=== PATIENT | female | born 1970 ===

== ENCOUNTER 2016-11-18 10:15 | Day surgery (SDC) | payer SELFPAY ==
[2016-10-28 11:47] VITALS: BMI 35.9
[2016-11-18 11:03] VITALS: RESP 18; O2SAT 97
[2016-11-18] MEDS ORDERED: Bupivacaine HCl 0.25% PF (10 ml) Inj ONE (12:31)
[2016-11-18] MEDS ORDERED: Lidocaine 1% Inj (20ml) ONE (12:31)
[2016-11-18] MEDS ORDERED: MethylPREDNISolone Depo 40 mg/ml Inj ONE (12:31)
[2016-11-18] MEDS ORDERED: Lactated Ringer's 1,000 ML IV ONE (12:45)
[2016-11-18] MEDS ORDERED: Propofol 10 mg/ml Inj (20 ML) ONE (12:46)
[2016-11-18] MEDS ORDERED: Iohexol 300 10 ML ONE (12:48)
[2016-11-18] MEDS ORDERED: Lidocaine 1% Inj (20ml) IJ ONE (12:53)
[2016-11-18] MEDS ORDERED: MethylPREDNISolone Depo 40 mg/ml Inj IM ONE ×2 (12:53)
[2016-11-18] MEDS ORDERED: Oxycodone/Acetaminophen 5/325 mg Tab PO PRN (13:08)
[2016-11-18] MEDS: HYDROmorphone 0.5 mg/0.5 ml ISec IVP PRN ×2 (13:08→13:30)
[2016-11-18 15:20] VITALS: BP 135/90; PULSE 95; TEMP 98.7
[2016-11-18] MEDS ORDERED: Oxycodone/Acetaminophen 5/325 mg Tab PO ONE (15:20)
--- NOTE | 2016-11-19 08:48 | OP ---
PROCEDURE DATE: 11/18/2016 PREOPERATIVE DIAGNOSIS: Right trochanteric bursitis. POSTOPERATIVE DIAGNOSIS: Right trochanteric bursitis. PROCEDURE: Right trochanteric bursa injection under fluoroscopic guidance. COMPLICATIONS: None. EXPECTED BLOOD LOSS: None. ANESTHESIOLOGIST: Dr. Hanson. PROCEDURE IN DETAIL: After informed consent was obtained, the patient was brought to the OR and plac ed on the table in the supine position. All pressure points were padded, and sedation was administer ed by anesthesia. The right hip and right groin were prepped with iodine x 3 [address] drap[address] in normal [address] erile fashion. Using x-ray in the AP view, the right greater trochanteric bursa was identified. A 2 2 gauge 3-1/2 inch spinal needle was placed to bony contact at the right greater trochanter bursa. A fter negative aspiration for heme or CSF, 1 mL of Omnipaque 300 contrast dye was used to delineate th e bursa. After negative aspiration for heme or CSF, 4 mL of 1% preservative-free lidocaine and Depo- Medrol was easily instilled. The patient had no paresthesias during the procedure. The patient was brought to stage II recovery room with bilateral lower extremity motor and sensory intact. Bandar Gaston MD cc: [id number] TT: 11/18/2016 15:37:32 sn
--- NOTE | 2016-11-21 10:42 | RAD ---
PROCEDURE: Fluoroscopy up to 1 hour HISTORY: EPIDURAL RT HIP COMPARISON: TECHNIQUE: Fluoroscopy up to 1 hour. Three images were submitted FINDINGS: The study shows needle placement in contrast injection adjacent to the greater trochanter IMPRESSION: As above
== END 2016-11-18 15:53 | disposition home or self-care (01) ==
LOC: H.OPSURG 10:15
PROVIDERS: ATTEND Anesthesiology Pain Medicine
DX: M70.61 Trochanteric bursitis, right hip (principal)

== ENCOUNTER 2016-11-22 22:05 | Emergency (ER) | payer SELFPAY ==
[2016-11-22 22:05] VITALS: BMI 35.9
[2016-11-22 23:03] LABS: BASO # 0.1 K/uL (0.0-0.2); EOS # 0.2 K/uL (0.0-0.7); EOS % 1.4 % (0.0-4.0); HEMATOCRIT 38.7 % (34.0-47.0); LYMPH # 3.1 K/uL (1.0-4.3); LYMPH % 25.4 % (20.0-40.0); MEAN CELL VOLUME 90.2 fl (81.0-99.0); MEAN CORPUSCULAR HEMOGLOBIN 29.5 pg (27.0-31.0); MEAN CORPUSCULAR HGB CONC 32.8 g/dL (33.0-37.0); MEAN PLATELET VOLUME 8.4 fl (7.2-11.7); MONO # 0.9 K/uL (0.0-0.8); MONO % 7.4 % (0.0-10.0); NEUT # 7.9 K/uL (1.8-7.0); NEUT % 64.8 % (50.0-75.0); RED CELL DISTRIBUTION WIDTH 14.6 % (11.5-14.5); WHITE BLOOD COUNT 12.2 K/uL (4.8-10.8)
[2016-11-22 23:12] LABS: BLOOD UREA NITROGEN 20 mg/dl (7-17); CALCIUM 9.1 mg/dL (8.4-10.2); CARBON DIOXIDE 25 mmol/L (22-30); CHLORIDE 104 mmol/L (98-107); GFR AFRICAN-AMERICAN > 60; GLUCOSE,RANDOM 110 mg/dL (65-105); POTASSIUM 4.2 MMOL/L (3.6-5.0); SODIUM 142 mmol/l (132-148)
--- NOTE | 2016-11-22 23:13 | ED PDOC ---
HPI: Chest Pain Time Seen by Provider: 11/22/16 22:20 Chief Complaint (Nursing): Chest Pain Chief Complaint (Provider): Chest Pain History Per: Patient History/Exam Limitations: no limitations Onset/Duration Of Symptoms: Days (x2), Intermittent Episodes Current Symptoms Are (Timing): Still Present Severity: Moderate Associated Symptoms: denies: Dyspnea, Other ((-) fever, (-) cough, (-) leg swelling) Exacerbating Factors: Deep Breathing Additional Complaint(s): Xenia Melchoreta is a 46 year old female, with a past medical history of depression and anxiety, who presents to the emergency department for the evaluation of chest pain, that the patient has been experiencing for the past two days. Pain is left-sided, intermittently occurs, worsens with breathing, and does not radiate elsewhere. Denies dyspnea, a fever, cough, or leg swelling. Of note, patient states she has felt this pain in the past when feeling depressed/anxious. Denies suicidal ideation or homicidal ideation. Patient is currently on medication for her depression. PMD: Dr. Nitesh De La Garza Past Medical History Reviewed: Historical Data, Nursing Documentation, Vital Signs Vital Signs: Last Vital Signs Temp 98.2 F 11/23/16 03:26 Pulse 91 H 11/23/16 03:26 Resp 16 11/23/16 03:26 BP 153/90 H 11/23/16 03:26 Pulse Ox 99 11/23/16 03:26 - Medical History PMH: Anxiety, Arthritis, Back Problems, Bipolar Disorder, Depression, Fibromyalgia, Migraine, Post Traumatic Stress Disorder, Rheumatoid Arthritis, Seizures Denies: HIV, Pneumothorax, Chronic Kidney Disease, Sexually Transmitted Disease - Surgical History Surgical History: Appendectomy, Cholecystectomy, Tonsillectomy, Other surgeries: Hysterectomy - Family History Family History: States: Unknown Family Hx - Social History Current smoker - smoking cessation education provided: No Ex-Smoker (has not smoked in the last 12 months): No Alcohol: None Drugs: Denies - Immunization History Hx Tetanus Toxoid Vaccination: No Hx Influenza Vaccination: No Hx Pneumococcal Vaccination: No - Home Medications Home Medications: Ambulatory Orders Medication Instructions Recorded Quetiapine Fumarate [Seroquel] 300 mg PO HS 06/13/16 lamoTRIgine [LaMICtal] 100 mg PO DAILY 06/13/16 Meclizine [Antivert] 25 mg PO Q6 PRN #30 tab 09/19/16 Prazosin [Prazosin HCl] 2 mg PO HS 10/02/16 Divalproex [Depakote ER] 500 mg PO DAILY 10/28/16 LORazepam [Ativan] 1 mg PO DAILY PRN 10/28/16 DULoxetine [Cymbalta] 20 mg PO DAILY 11/18/16 - Allergies Allergies/Adverse Reactions: Allergies Allergy/AdvReac Type Severity Reaction Status Date / Time Penicillins Allergy Severe SWELLING Verified 10/02/16 12:34 ANDERSON Risk Score for UA/NSTEMI - ANDERSON Risk Score Age > 64: NO 3 or more CAD Risk Factors: NO Known CAD (Stenosis greater than 50%): NO Aspirin use in past 7 days: NO Severe Angina: NO EKG ST changes greater than 0.5mm: NO Positive Cardiac Marker: NO ANDERSON Score: 0 Risk %: 5% Curb-65 Severity Score - CURB-65 Severity Score Confusion: No Bun >19mg/dl (>7mmol/L): No Respiratory Rate greater than/equal to 30: No Systolic BP <90 or Diastolic BP less than/equal 60mmHg: No Age >64: No Curb-65 Score: 0 Percentage 30-day mortality: 0.6% Wells Criteria for PE - Wells Criteria for Pulmonary Embolism Clinical Signs and Symptoms of DVT: No P.E is #1 Diagnosis, or Equally Likely: No Heart Rate >100: No Immobilization at least 3 days;Surgery previous 4 weeks: No Previous, objectively diagnosed PE or DVT: No Hemoptysis: No Malignancy w/treatment within 6 months, or palliative: No Total Score: 0 Review of Systems ROS Statement: Except As Marked, All Systems Reviewed And Found Negative Constitutional: Negative for: Fever Cardiovascular: Positive for: Chest Pain. Negative for: Edema ((-) leg swelling ) Respiratory: Positive for: Pleuritic Pain. Negative for: Cough, Shortness of Breath, SOB with Exertion Neurological: Negative for: Weakness, Numbness Psych: Positive for: Anxiety, Depression. Negative for: Suicidal ideation, Other ((-) homicidal ideation) Physical Exam - Reviewed Nursing Documentation Reviewed: Yes Vital Signs Reviewed: Yes - Physical Exam Appears: Positive for: Non-toxic, No Acute Distress. Negative for: Uncomfortable Head Exam: Positive for: ATRAUMATIC, NORMOCEPHALIC Skin: Positive for: Normal Color, Warm, Dry Eye Exam: Positive for: Normal appearance, EOMI Neck: Positive for: Normal, Painless ROM Cardiovascular/Chest: Positive for: Regular Rate, Rhythm. Negative for: Murmur Respiratory: Positive for: Normal Breath Sounds. Negative for: Respiratory Distress Gastrointestinal/Abdominal: Positive for: Normal Exam, Soft. Negative for: Tenderness Back: Positive for: Normal Inspection. Negative for: L CVA Tenderness, R CVA Tenderness Extremity: Positive for: Normal ROM. Negative for: Tenderness, Swelling Neurologic/Psych: Positive for: Alert, Oriented - Laboratory Results Result Diagrams: 11/22/16 22:58 11/22/16 22:58 - ECG ECG: Positive for: Interpreted By Me, Viewed By Me, Discussed With Finger Cobbler ECG Rhythm: Positive for: Normal QRS, Normal ST Segment, Sinus Rhythm Rate: 101 O2 Sat by Pulse Oximetry: 98 (RA) Pulse Ox Interpretation: Normal - Radiology X-Ray: Interpreted by Me, Viewed By Me X-Ray Interpretation: No Acute Disease Medical Decision Making Medical Decision Makin:20 Initial Impression: chest pain Differential Diagnoses include, but are not limited to ACS, Chest Wall Pain, ruling out a Pulmonary Embolism. Initial Plan: * CXR * EKG * CBC * BMP * Troponin I * D Dimer * Toradol 30mg IVP * Crisis Evaluation * Reevaluation EKG came back with a rate of 101. Normal Sinus Rhythm, Normal QRS, Normal ST Segment. Scribe Attestation: Documented by Efrain Jiang, acting as a scribe for Ly Thomas MD. Provider Scribe Attestation: All medical record entries made by the Scribe were at my direction and personally dictated by me. I have reviewed the chart and agree that the record accurately reflects my personal performance of the history, physical exam, medical decision making, and the department course for this patient. I have also personally directed, reviewed, and agree with the discharge instructions and disposition. Disposition - Clinical Impression Clinical Impression: Chest pain, Depression - Patient ED Disposition Is Patient to be Admitted: No Doctor Will See Patient In The: Office Counseled Patient/Family Regarding: Studies Performed, Diagnosis, Need For Followup - Disposition Referrals: Anya Leung MD [Primary Care Provider] - Disposition: Routine/Home Disposition Time: 03:11 Condition: GOOD Additional Instructions: Follow up with your PCP in 2-3 days. Instructions: Chest Pain (ED), Depression (ED)
[2016-11-23] MEDS ORDERED: Oxycodone/Acetaminophen 5/325 mg Tab PO STA (01:59)
[2016-11-23] MEDS ORDERED: Oxycodone/Acetaminophen 5/325 mg Tab ONE (02:17)
[2016-11-23 03:27] VITALS: BP 153/90; RESP 16; TEMP 98.2
[2016-11-23 05:41] VITALS: PULSE 101; O2SAT 98
--- NOTE | 2016-11-23 11:32 | RAD ---
PROCEDURE: CHEST RADIOGRAPH, 1 VIEW HISTORY: chest pain COMPARISON: 11/02/2009 FINDINGS: LUNGS: Clear. PLEURA: No pneumothorax or pleural fluid seen. CARDIOVASCULAR: Normal. OSSEOUS STRUCTURES: No significant abnormalities. VISUALIZED UPPER ABDOMEN: Normal. OTHER FINDINGS: None. IMPRESSION: No active disease.
--- NOTE | 2016-11-23 15:03 | CARD ---
APPROVED REPORT EKG Measurement Heart [id number] <Conclusion> Sinus tachycardia Possible Left atrial enlargement Borderline ECG
== END 2016-11-23 03:33 | disposition home or self-care (01) ==
LOC: H.ER 22:05
DX: R07.9 Chest pain, unspecified (principal); F32.9 Major depressive disorder, single episode, unspecified; Z87.891 Personal history of nicotine dependence

== ENCOUNTER 2017-01-10 11:41 | Inpatient (IN) | payer OTHER ==
[2017-01-10 11:45] VITALS: BMI 35.6
[2017-01-10] MEDS ORDERED: Sodium Chloride 0.9% 1,000 ML IV STA (12:21)
[2017-01-10] MEDS ORDERED: Albuterol-Ipratrop 3 mg / 0.5 (3 ml) UD INH STA ×2 (12:22→16:20)
[2017-01-10] MEDS ORDERED: Albuterol-Ipratrop 3 mg / 0.5 (3 ml) UD ONE ×2 (12:27→16:25)
--- NOTE | 2017-01-10 12:57 | RAD ---
HISTORY: cough, wheezing COMPARISON: Comparison is made to 11/22/2016 TECHNIQUE: Chest PA and lateral FINDINGS: LUNGS: No active pulmonary disease. PLEURA: No significant pleural effusion identified. No pneumothorax apparent. CARDIOVASCULAR: Normal. OSSEOUS STRUCTURES: No significant abnormalities. VISUALIZED UPPER ABDOMEN: Normal. OTHER FINDINGS: None. IMPRESSION: No active disease.
[2017-01-10 13:30] LABS: BASO # 0.1 K/uL (0.0-0.2); BASO % 0.5 % (0.0-2.0); EOS # 0.1 K/uL (0.0-0.7); EOS % 0.6 % (0.0-4.0); HEMATOCRIT 38.7 % (34.0-47.0); LYMPH # 5.1 K/uL (1.0-4.3); LYMPH % 31.7 % (20.0-40.0); MEAN CORPUSCULAR HEMOGLOBIN 29.7 pg (27.0-31.0); MEAN CORPUSCULAR HGB CONC 32.7 g/dL (33.0-37.0); MEAN PLATELET VOLUME 8.1 fl (7.2-11.7); MONO # 1.2 K/uL (0.0-0.8); MONO % 7.5 % (0.0-10.0); NEUT # 9.6 K/uL (1.8-7.0); NEUT % 59.7 % (50.0-75.0); NRBC % 0.1 % (0.0-0.0); RED CELL DISTRIBUTION WIDTH 15.1 % (11.5-14.5); WHITE BLOOD COUNT 16.1 K/uL (4.8-10.8)
[2017-01-10 13:52] LABS: ALB/GLOB RATIO 1.5 (1.0-2.1); ALKALINE PHOSPHATASE 93 U/L (38-126); ALT/SGPT 33 U/L (9-52); AST/SGOT 24 U/L (14-36); BILIRUBIN,TOTAL 0.2 mg/dl (0.2-1.3); BLOOD UREA NITROGEN 21 mg/dl (7-17); CARBON DIOXIDE 23 mmol/L (22-30); CHLORIDE 106 mmol/L (98-107); GFR AFRICAN-AMERICAN > 60; GLUCOSE,RANDOM 86 mg/dL (65-105); POTASSIUM 3.7 MMOL/L (3.6-5.0); SODIUM 139 mmol/l (132-148); TOTAL PROTEIN 6.7 G/DL (6.3-8.2)
[2017-01-10 15:37] LABS: RBC URINE 3 /hpf (0-3); URINE BACTERIA RARE (<OCC); URINE BILIRUBIN NEGATIVE (NEGATIVE); URINE BLOOD NEGATIVE (NEGATIVE); URINE COLOR AMBER (YELLOW); URINE GLUCOSE (UA) NEG (Normal); URINE KETONE NEGATIVE (NEGATIVE); URINE LEUKOCYTE ESTERASE NEG Leu/uL (Negative); URINE PROTEIN 100 mg/dL (NEGATIVE); URINE UROBILINOGEN 0.2-1.0 mg/dL (0.2-1.0); WBC URINE 3 /hpf (0-5)
--- NOTE | 2017-01-10 16:13 | ED PDOC ---
HPI: CCC, URI, Sore Throat Time Seen by Provider: 01/10/17 12:03 Chief Complaint (Nursing): Cough, Cold, Congestion Chief Complaint (Provider): Cough, wheezing - Sent by clinic for CXR History Per: Patient History/Exam Limitations: no limitations Have you had recent travel within the past 21 days to any of the following countries: [place], [place], [place] or [place]?: No Onset/Duration Of Symptoms: Days Current Symptoms Are (Timing): Still Present Location Of Pain: Diffuse Myalgias Sick Contacts (Context): None Associated Symptoms: Cough, Myalgias. denies: Fever, Chills, Sore Throat, Sputum Ear Symptoms: Bilateral: None Additional Complaint(s): Pt states she has been taking azithromycin but is not getting better. Pt states she is continuing to wheeze although she is taking azithromycin and prednisone. Past Medical History Reviewed: Historical Data, Nursing Documentation, Vital Signs Vital Signs: Last Vital Signs Temp 97.9 F 01/10/17 15:28 Pulse 77 01/10/17 15:28 Resp 18 01/10/17 15:28 BP 133/84 01/10/17 15:28 Pulse Ox 99 01/10/17 17:32 - Medical History PMH: Anxiety, Arthritis, Back Problems, Bipolar Disorder, Bronchitis, Depression , Fibromyalgia, HTN, Migraine, Post Traumatic Stress Disorder, Rheumatoid Arthritis, Seizures Denies: HIV, Pneumothorax, Chronic Kidney Disease, Sexually Transmitted Disease - Surgical History Surgical History: Appendectomy, Cholecystectomy, Tonsillectomy, - Family History Family History: States: Unknown Family Hx - Living Arrangements Living Arrangements: With Family - Social History Current smoker - smoking cessation education provided: No Alcohol: None Drugs: Denies - Immunization History Hx Tetanus Toxoid Vaccination: No Hx Influenza Vaccination: No Hx Pneumococcal Vaccination: No - Home Medications Home Medications: Ambulatory Orders Medication Instructions Recorded Quetiapine Fumarate [Seroquel] 300 mg PO HS 06/13/16 lamoTRIgine [LaMICtal] 100 mg PO DAILY 06/13/16 Meclizine [Antivert] 25 mg PO Q6 PRN #30 tab 09/19/16 Prazosin [Prazosin HCl] 2 mg PO HS 10/02/16 Divalproex [Depakote ER] 500 mg PO DAILY 10/28/16 LORazepam [Ativan] 1 mg PO DAILY PRN 10/28/16 DULoxetine [Cymbalta] 20 mg PO DAILY 11/18/16 Albuterol 0.083% [Albuterol 3 ml IH Q6 #50 dose 01/07/17 Sulfate 3 Ml] Albuterol HFA [Ventolin HFA 90 1 puff IH Q6 #1 inhaler 01/07/17 mcg/actuation (8 g)] Azithromycin [Zithromax] 250 mg PO DAILY #4 tab 01/07/17 predniSONE [predniSONE Tab] 40 mg PO DAILY #8 tab 01/07/17 - Allergies Allergies/Adverse Reactions: Allergies Allergy/AdvReac Type Severity Reaction Status Date / Time Penicillins Allergy Severe SWELLING Verified 01/10/17 11:56 Review of Systems ROS Statement: Except As Marked, All Systems Reviewed And Found Negative Respiratory: Positive for: Cough, Shortness of Breath Physical Exam - Reviewed Nursing Documentation Reviewed: Yes Vital Signs Reviewed: Yes - Physical Exam Appears: Positive for: Well, Non-toxic, No Acute Distress Head Exam: Positive for: ATRAUMATIC, NORMAL INSPECTION, NORMOCEPHALIC Skin: Positive for: Normal Color, Warm, DRY Eye Exam: Positive for: Normal appearance ENT: Positive for: Normal ENT Inspection Neck: Positive for: Normal, Painless ROM Cardiovascular/Chest: Positive for: Regular Rate, Rhythm Respiratory: Positive for: Wheezing (Diffuse wheezing ). Negative for: Accessory Muscle Use, Respiratory Distress Back: Positive for: Normal Inspection Extremity: Positive for: Normal ROM Neurologic/Psych: Positive for: Alert, Oriented - Laboratory Results Result Diagrams: 01/10/17 13:24 01/10/17 13:24 - ECG O2 Sat by Pulse Oximetry: 99 Pulse Ox Interpretation: Normal Medical Decision Making Medical Decision Making: PT continues wheezing on re-evaluation and states she does not feel she is breathing better. Disposition - Clinical Impression Clinical Impression: Dyspnea - Patient ED Disposition Is Patient to be Admitted: Yes - Disposition Disposition: Routine/Home Disposition Time: 17:50 Condition: GOOD
[2017-01-10 17:26] LABS: MAGNESIUM 2.1 MG/DL (1.6-2.3)
--- NOTE | 2017-01-10 20:19 | CP.PCM.HP ---
History of Present Illness - History of Present Illness History of Present Illness: Pt is a 46 y/o female with pmhx of chronic migraine without aura, impaired glucose tolerance, fibromyalgia, cervical radiculopathy, cervical cancer, osteopenia and psychiatric history of Bipolar disorder who was sent to the [facility] ED today by her PCP's office for chest xray to rule out pneumonia, as pt reported couhging and feeling short of breath. pt also reports going to the ED 5 days prior for evaluation and was discharged with prednisone and azithromycin , which she has been taking but her symptoms has not improved. reports associated generalized tiredness and weakness, denies fever, chills, nausea, vomiting, chest pain or diarrhea. Present on Admission - Present on Admission Any Indicators Present on Admission: No Review of Systems - Review of Systems All systems: reviewed and no additional remarkable complaints except Review of Systems: per HPI Past Patient History - Infectious Disease Hx of Infectious Diseases: None - Past Medical History & Family History Past Medical History?: Yes - Past Social History Alcohol: None Drugs: Denies - CARDIAC Hx Hypertension: Yes - PULMONARY Hx Bronchitis: Yes - NEUROLOGICAL Hx Migraine: Yes Hx Seizures: Yes - HEENT Hx HEENT Problems: No - RENAL Hx Chronic Kidney Disease: No - ENDOCRINE/METABOLIC Hx Endocrine Disorders: No - HEMATOLOGICAL/ONCOLOGICAL Hx Human Immunodeficiency Virus (HIV): No - INTEGUMENTARY Hx Dermatological Problems: No - MUSCULOSKELETAL/RHEUMATOLOGICAL Hx Arthritis: Yes Hx Rheumatoid Arthritis: Yes - GASTROINTESTINAL Hx Gastrointestinal Disorders: No - GENITOURINARY/GYNECOLOGICAL Hx Sexually Transmitted Disorders: No - PSYCHIATRIC Hx Anxiety: Yes Hx Bipolar Disorder: Yes Hx Depression: Yes Hx Post Traumatic Stress Disorder: Yes - SURGICAL HISTORY Hx Appendectomy: Yes Hx Cholecystectomy: Yes Hx Tonsillectomy: Yes - ANESTHESIA Hx Anesthesia: Yes Hx Anesthesia Reactions: No Hx Malignant Hyperthermia: No Meds Allergies/Adverse Reactions: Allergies Allergy/AdvReac Type Severity Reaction Status Date / Time Penicillins Allergy Severe SWELLING Verified 01/10/17 11:56 Physical Exam - Constitutional Appears: No Acute Distress - Head Exam Head Exam: NORMOCEPHALIC - Eye Exam Eye Exam: Normal appearance - ENT Exam ENT Exam: Mucous Membranes Moist - Respiratory Exam Respiratory Exam: Wheezes, NORMAL BREATHING PATTERN. absent: Rhonchi - Cardiovascular Exam Cardiovascular Exam: REGULAR RHYTHM, +S1, +S2 - GI/Abdominal Exam GI & Abdominal Exam: Normal Bowel Sounds, Soft. absent: Tenderness - Extremities Exam Extremities exam: Negative for: calf tenderness, pedal edema - Neurological Exam Neurological exam: Alert, CN II-XII Intact, Oriented x3 Results - Vital Signs Recent Vital Signs: Last Vital Signs Temp 97.9 F 01/10/17 15:28 Pulse 93 H 01/10/17 20:06 Resp 18 01/10/17 20:06 BP 117/89 01/10/17 20:06 Pulse Ox 97 01/10/17 20:05 - Labs Result Diagrams: 01/10/17 13:24 01/10/17 13:24 Assessment & Plan - Assessment and Plan (Free Text) Assessment: 46 y/o female with extensive medical history but no diagnosed history of asthma , being admitted for severe bronchitis (not asthma exacerbation, as pt does not have asthma) Plan: Severe bronchitis Chest xray negative for any active disease Albuterol Q3hrs 125mg of steriod given in ED Sulomedrol 80mg Q6hrs antibiotic: Doxy 100mg PO daily (best choice given penicillin allergy and multiple psychiatric drugs concerning for drug interaction) tylenol for fever Monitor Bipolar disorder Resumed Seroquel and Depakote Hypertension Continue with Norvasc pain management as ordered diet- heart healthy Dvt prophylaxis- Lovenox 40mg [facility]
[2017-01-10] MEDS: Albuterol-Ipratrop 3 mg / 0.5 (3 ml) UD INH PRN (21:35)
[2017-01-10] MEDS: Albuterol HFA 90 mcg/actuation (8 g) IH SCH (21:56)
[2017-01-10] MEDS: Divalproex 500 mg DR(BID formulation) PO SCH (21:57)
[2017-01-10] MEDS: methylPREDNISolone 80 MG in Sodium Chloride 0.9% 50 ML IVPB SCH (22:03)
[2017-01-11] MEDS: Albuterol-Ipratrop 3 mg / 0.5 (3 ml) UD INH PRN ×2 (01:05→08:12)
[2017-01-11] MEDS: guaiFENesin-Codeine 100-10mg/5ml Syrup (5 ml) UD PO PRN ×3 (01:19→21:01)
[2017-01-11] MEDS: Albuterol HFA 90 mcg/actuation (8 g) IH SCH ×2 (03:47→09:12)
[2017-01-11] MEDS: methylPREDNISolone 80 MG in Sodium Chloride 0.9% 50 ML IVPB SCH ×2 (03:47→09:15)
[2017-01-11] MEDS ORDERED: Pneumococcal 23-Valent Vaccine IM ONE (06:00)
[2017-01-11 07:47] LABS: BASO % 0.3 % (0.0-2.0); EOS % 0.1 % (0.0-4.0); HEMATOCRIT 39.6 % (34.0-47.0); LYMPH # 2.3 K/uL (1.0-4.3); LYMPH % 12.2 % (20.0-40.0); MEAN CELL VOLUME 91.1 fl (81.0-99.0); MEAN CORPUSCULAR HEMOGLOBIN 29.4 pg (27.0-31.0); MEAN CORPUSCULAR HGB CONC 32.3 g/dL (33.0-37.0); MEAN PLATELET VOLUME 8.2 fl (7.2-11.7); MONO # 0.6 K/uL (0.0-0.8); NEUT # 16.1 K/uL (1.8-7.0); NEUT % 84.4 % (50.0-75.0); RED CELL DISTRIBUTION WIDTH 15.4 % (11.5-14.5); WHITE BLOOD COUNT 19.1 K/uL (4.8-10.8)
[2017-01-11 08:30] LABS: ALB/GLOB RATIO 1.5 (1.0-2.1); ALKALINE PHOSPHATASE 93 U/L (38-126); ALT/SGPT 35 U/L (9-52); AST/SGOT 35 U/L (14-36); BILIRUBIN,TOTAL 0.2 mg/dl (0.2-1.3); BLOOD UREA NITROGEN 16 mg/dl (7-17); CARBON DIOXIDE 23 mmol/L (22-30); CHLORIDE 101 mmol/L (98-107); GFR AFRICAN-AMERICAN > 60; GLUCOSE,RANDOM 192 mg/dL (65-105); POTASSIUM 4.3 MMOL/L (3.6-5.0); SODIUM 135 mmol/l (132-148); TOTAL PROTEIN 6.8 G/DL (6.3-8.2)
[2017-01-11] MEDS ORDERED: Azithromycin 500 MG in Sodium Chloride 0.9% 250 ML IVPB SCH (09:00)
[2017-01-11] MEDS ORDERED: Moxifloxacin IV 400mg/250ml NS 400 MG/250 ML BAG IVPB SCH (09:00)
[2017-01-11] MEDS: Enoxaparin 40 mg Syringe SC SCH (09:12)
--- NOTE | 2017-01-11 12:41 | CP.PCM.PN ---
Subjective - Date & Time of Evaluation Date of Evaluation: 01/11/17 Time of Evaluation: 10:30 - Subjective Subjective: 46 y/o F admitted for persistent SOB and outpatient treatment failure is seen at bedside in not acute distress. Patient c/o hoarseness, dry cough, and SOB with exertion, however she states feeling better compared to yesterday. Denies vomiting, CP, palpitations. Afebrile. Denies Hx of COPD or Asthma but has Hx of Pneumonia in the past. C/O multiple sites joint pain worse in R/hip, mild at this time. Objective - Vital Signs/Intake and Output Vital Signs (last 24 hours): Temp Pulse Resp BP Pulse Ox 98.3 F 91 H 18 136/82 96 01/11/17 12:35 01/11/17 12:35 01/11/17 12:35 01/11/17 12:35 01/11/17 12:35 - Medications Medications: Current Medications Acetaminophen/Butalbital/Caffeine (Fioricet) 1 tab PO BID PRN PRN Reason: Migraine headache Albuterol (Ventolin Hfa 90 Mcg/Actuation (8 G)) 1 puff IH Q6 [facility] Last Admin: 01/11/17 09:12 Dose: 1 puff Albuterol Sulfate (Albuterol 0.083% Inhal Linnea (2.5 Mg/3 Ml) Ud) 2.5 mg IH RQ6 [facility] Amlodipine Besylate (Norvasc) 5 mg PO DAILY [facility] Last Admin: 01/11/17 09:13 Dose: 5 mg Benzonatate (Tessalon Perles) 200 mg PO TID PRN PRN Reason: Cough Divalproex Sodium (Depakote Dr(*Bid*)) 500 mg PO HS [facility] Last Admin: 01/10/17 21:57 Dose: 500 mg Doxycycline Hyclate (Doryx) 100 mg PO Q12 [facility] Last Admin: 01/11/17 09:13 Dose: 100 mg Enoxaparin Sodium (Lovenox) 40 mg SC DAILY [facility] PRN Reason: Protocol Last Admin: 01/11/17 09:12 Dose: 40 mg Famotidine (Pepcid) 20 mg PO BID [facility] Last Admin: 01/11/17 09:47 Dose: 20 mg Guaifenesin/Codeine Phosphate (Robitussin W/Codeine) 10 ml PO Q6 PRN PRN Reason: Cough Last Admin: 01/11/17 09:14 Dose: 10 ml Methylprednisolone 80 mg/ (Sodium Chloride) 50 mls @ 100 mls/hr IVPB Q8H [facility] Ketorolac Tromethamine (Toradol) 15 mg IVP Q6 PRN PRN Reason: Pain, moderate (4-7) Last Admin: 01/11/17 01:36 Dose: 15 mg Lorazepam (Ativan) 1 mg PO DAILY PRN PRN Reason: Anxiety Last Admin: 01/11/17 04:28 Dose: 1 mg Morphine Sulfate (Morphine) 4 mg IVP Q6 PRN PRN Reason: Pain, severe (8-10) Last Admin: 01/11/17 09:10 Dose: 4 mg Prazosin HCl (Minipress) 5 mg PO [facility] Last Admin: 01/10/17 21:58 Dose: 5 mg Quetiapine Fumarate (Seroquel) 400 mg PO [facility] Last Admin: 01/10/17 21:58 Dose: 400 mg Sulfasalazine (Azulfidine) 500 mg PO BID [facility] Last Admin: 01/11/17 09:13 Dose: 500 mg Zolpidem Tartrate (Ambien) 5 mg PO [facility] Last Admin: 01/10/17 23:39 Dose: 5 mg - Labs Labs: 01/11/17 06:30 01/11/17 06:30 - Constitutional Appears: Non-toxic, No Acute Distress - Eye Exam Eye Exam: PERRL - ENT Exam ENT Exam: Mucous Membranes Moist - Respiratory Exam Respiratory Exam: Decreased Breath Sounds, Rales (scattered), NORMAL BREATHING PATTERN - Cardiovascular Exam Cardiovascular Exam: REGULAR RHYTHM, +S1, +S2. absent: Gallop, Murmur - GI/Abdominal Exam GI & Abdominal Exam: Soft, Normal Bowel Sounds. absent: Guarding, Tenderness - Extremities Exam Extremities Exam: Normal Capillary Refill. absent: Calf Tenderness - Neurological Exam Neurological Exam: Alert, Awake, Oriented x3 - Psychiatric Exam Psychiatric exam: Normal Affect, Normal Mood - Skin Skin Exam: Normal Color, Warm Assessment and Plan - Assessment and Plan (Free Text) Assessment: 46 y/o female with extensive medical history being admitted for severe bronchitis with SOB and failure outpatient and ED treatment Severe acute bronchitis Diminished breath sound B/L Scattered crackles. No wheezing Chest xray negative Albuterol nebs Q3hrs [facility] Sulomedrol 40mg Q8hrs IV C/w Doxy 100mg PO daily (best choice given penicillin allergy and multiple psychiatric drugs concerning for drug interaction) tylenol for fever Robitusin w/codeine, Tessalon TID for cough Bipolar disorder c/w Seroquel and Depakote as outpatient Rheumatoid arthritis Previous records reviewed Joint pain C/W Sulfasalazine Toradol for severe pain Motrin for moderate pain Hypertension controlled C/w Norvasc Dvt prophylaxis Lovenox 40mg [facility]
[2017-01-11] MEDS ORDERED: methylPREDNISolone 80 MG in Sodium Chloride 0.9% 50 ML IVPB SCH (12:45)
[2017-01-11] MEDS: Albuterol 0.083% Inhal Sol (2.5 mg/3 mL) UD IH SCH ×2 (13:18→19:49)
[2017-01-11] MEDS: methylPREDNISolone 40 MG in Sodium Chloride 0.9% 50 ML IV SCH (16:33)
[2017-01-11] MEDS ORDERED: Albuterol-Ipratrop 3 mg / 0.5 (3 ml) UD INH STA (17:49)
[2017-01-11] MEDS: Apap-Butalbital-Caffeine 325-50-40mg Tab PO PRN (21:57)
[2017-01-11] MEDS: Divalproex 500 mg DR(BID formulation) PO SCH (21:57)
[2017-01-12] MEDS: methylPREDNISolone 40 MG in Sodium Chloride 0.9% 50 ML IV SCH ×2 (00:15→08:46)
[2017-01-12] MEDS: Albuterol 0.083% Inhal Sol (2.5 mg/3 mL) UD IH SCH ×4 (01:13→19:33)
[2017-01-12] MEDS: Albuterol 0.083% Inhal Sol (2.5 mg/3 mL) UD INH STA ×2 (08:10→10:56)
[2017-01-12 08:17] LABS: BASO # 0.1 K/uL (0.0-0.2); BASO % 0.3 % (0.0-2.0); HEMATOCRIT 38.9 % (34.0-47.0); MEAN CELL VOLUME 89.8 fl (81.0-99.0); MEAN CORPUSCULAR HEMOGLOBIN 29.6 pg (27.0-31.0); MEAN CORPUSCULAR HGB CONC 32.9 g/dL (33.0-37.0); MEAN PLATELET VOLUME 8.7 fl (7.2-11.7); MONO % 4.6 % (0.0-10.0); NEUT # 19.1 K/uL (1.8-7.0); NEUT % 86.1 % (50.0-75.0); PLATELET COUNT 311 K/uL (130-400); RED CELL DISTRIBUTION WIDTH 15.2 % (11.5-14.5); WHITE BLOOD COUNT 22.2 K/uL (4.8-10.8)
[2017-01-12] MEDS: Apap-Butalbital-Caffeine 325-50-40mg Tab PO PRN (08:42)
[2017-01-12] MEDS: Enoxaparin 40 mg Syringe SC SCH (08:43)
[2017-01-12] MEDS: guaiFENesin-Codeine 100-10mg/5ml Syrup (5 ml) UD PO PRN (10:03)
[2017-01-12 12:01] LABS: NEUTROPHIL 76 % (42-75); REACTIVE LYMPHOCYTES 4 % (0-0); TOTAL CELLS COUNTED 100
[2017-01-12] MEDS: guaiFENesin-Codeine 100-10mg/5ml Syrup (5 ml) UD PO SCH ×3 (13:08→22:16)
--- NOTE | 2017-01-12 15:24 | CP.PCM.PN ---
Subjective - Date & Time of Evaluation Date of Evaluation: 01/12/17 Time of Evaluation: 08:55 - Subjective Subjective: 46 y/o F admitted for persistent SOB, cough, and wheezing, and outpatient treatment failure. Patient was seen and examined at bedside this morning after nebulizer treatment. Patient still with SOB, persistent wet non productive cough, and reporting left upper back pain when she coughs. Patient reports new onset of burning with urination, but denies blood in urine. Objective - Vital Signs/Intake and Output Vital Signs (last 24 hours): Temp Pulse Resp BP Pulse Ox 97.9 F 89 18 131/75 97 01/12/17 12:34 01/12/17 12:34 01/12/17 12:34 01/12/17 12:34 01/12/17 12:34 - Medications Medications: Current Medications Acetaminophen/Butalbital/Caffeine (Fioricet) 1 tab PO BID PRN PRN Reason: Migraine headache Last Admin: 01/12/17 08:42 Dose: 1 tab Albuterol Sulfate (Albuterol 0.083% Inhal Linnea (2.5 Mg/3 Ml) Ud) 2.5 mg IH RQ6 [facility] Last Admin: 01/12/17 08:00 Dose: 2.5 mg Amlodipine Besylate (Norvasc) 5 mg PO DAILY [facility] Last Admin: 01/12/17 08:43 Dose: 5 mg Benzonatate (Tessalon Perles) 200 mg PO TID PRN PRN Reason: Cough Divalproex Sodium (Depakote Dr(*Bid*)) 500 mg PO HS [facility] Last Admin: 01/11/17 21:57 Dose: 500 mg Doxycycline Hyclate (Doryx) 100 mg PO Q12 [facility] Last Admin: 01/12/17 08:43 Dose: 100 mg Enoxaparin Sodium (Lovenox) 40 mg SC DAILY [facility] PRN Reason: Protocol Last Admin: 01/12/17 08:43 Dose: 40 mg Famotidine (Pepcid) 20 mg PO BID [facility] Last Admin: 01/12/17 08:43 Dose: 20 mg Fluticasone Propionate (Flonase) 2 spr MAREN DAILY [facility] Last Admin: 01/12/17 13:09 Dose: 2 spr Guaifenesin/Codeine Phosphate (Robitussin W/Codeine) 10 ml PO Q4 [facility] Last Admin: 01/12/17 13:08 Dose: 10 ml Methylprednisolone 80 mg/ (Sodium Chloride) 50 mls @ 100 mls/hr IV Q8 [facility] Ibuprofen (Motrin Tab) 600 mg PO Q6 PRN PRN Reason: Pain, moderate (4-7) Last Admin: 01/12/17 01:17 Dose: 600 mg Ketorolac Tromethamine (Toradol) 15 mg IVP Q6 PRN PRN Reason: Pain, severe (8-10) Last Admin: 01/12/17 08:41 Dose: 15 mg Lorazepam (Ativan) 1 mg PO DAILY PRN PRN Reason: Anxiety Last Admin: 01/12/17 14:52 Dose: 1 mg Prazosin HCl (Minipress) 5 mg PO [facility] Last Admin: 01/11/17 21:57 Dose: 5 mg Quetiapine Fumarate (Seroquel) 400 mg PO [facility] Last Admin: 01/11/17 21:57 Dose: 400 mg Sulfasalazine (Azulfidine) 500 mg PO BID [facility] Last Admin: 01/12/17 08:42 Dose: 500 mg Zolpidem Tartrate (Ambien) 5 mg PO [facility] Last Admin: 01/11/17 21:56 Dose: 5 mg - Labs Labs: 01/12/17 05:30 01/11/17 06:30 - Constitutional Appears: Non-toxic, No Acute Distress - ENT Exam ENT Exam: Mucous Membranes Moist - Respiratory Exam Respiratory Exam: Chest Wall Tenderness (tender to palpation of left upper/ middle chest), Clear to Ausculation Bilateral, NORMAL BREATHING PATTERN. absent : Rales, Rhonchi, Wheezes - Cardiovascular Exam Cardiovascular Exam: REGULAR RHYTHM, +S1, +S2 - GI/Abdominal Exam GI & Abdominal Exam: Soft, Normal Bowel Sounds. absent: Guarding, Rigid, Tenderness - Extremities Exam Extremities Exam: Normal Inspection. absent: Calf Tenderness, Pedal Edema - Back Exam Back Exam: NORMAL INSPECTION. absent: CVA tenderness (L), CVA tenderness (R) - Neurological Exam Neurological Exam: Alert, Awake, Oriented x3 - Skin Skin Exam: Dry, Intact, Normal Color Assessment and Plan - Assessment and Plan (Free Text) Assessment: 46 y/o female with extensive medical history being admitted for severe bronchitis with persistent SOB, wet non productive cough, intermittent wheezing. Plan: Severe acute bronchitis -Persistent symptomatic -Viral vs Bacterial -Chest X ray at admission showed no active disease Albuterol nebs Q 6 hours Solu-medrol 40 g Q8hrs IV C/w Doxycycline 100 mg PO Q12 (best choice given penicillin allergy and multiple psychiatric drugs concerning for drug interaction) tylenol for fever c/w Robitusin w/codeine 10 ml PO Q 4 [facility] c/w Tessalon TID for cough PRN Dysuria -UA negative in admission Urine Cx: showed E -Choli sensitive to Bactrim Start Bactrim DS 1 tab Q12 Left chest pain associated to cough -most likely costocondritis -Pain is reproduced by palpation -pain management -continue monitoring Leukocytosis afebrile patient is in steroids, could explain this finding Bipolar disorder c/w Seroquel and Depakote as outpatient Rheumatoid arthritis Previous records reviewed Joint pain C/W Sulfasalazine Toradol for severe pain Motrin for moderate pain Hypertension controlled C/w Norvasc Dvt prophylaxis Lovenox 40mg SC
[2017-01-12] MEDS: methylPREDNISolone 80 MG in Sodium Chloride 0.9% 50 ML IV SCH (16:52)
[2017-01-12] MEDS: Divalproex 500 mg DR(BID formulation) PO SCH (21:45)
[2017-01-12] MEDS: Tmp-Smz 800 mg-160 mg DS Tab PO SCH (21:45)
[2017-01-13] MEDS: Albuterol 0.083% Inhal Sol (2.5 mg/3 mL) UD IH SCH ×4 (01:03→20:13)
[2017-01-13] MEDS: methylPREDNISolone 80 MG in Sodium Chloride 0.9% 50 ML IV SCH ×2 (01:31→08:53)
[2017-01-13] MEDS: Apap-Butalbital-Caffeine 325-50-40mg Tab PO PRN ×2 (01:37→13:13)
[2017-01-13] MEDS: guaiFENesin-Codeine 100-10mg/5ml Syrup (5 ml) UD PO SCH ×6 (01:41→22:10)
[2017-01-13 05:58] LABS: HEMATOCRIT 37.7 % (34.0-47.0); MEAN CELL VOLUME 90.6 fl (81.0-99.0); MEAN CORPUSCULAR HEMOGLOBIN 29.2 pg (27.0-31.0); MEAN CORPUSCULAR HGB CONC 32.2 g/dL (33.0-37.0); RED CELL DISTRIBUTION WIDTH 15.3 % (11.5-14.5); WHITE BLOOD COUNT 19.5 K/uL (4.8-10.8)
[2017-01-13] MEDS: Enoxaparin 40 mg Syringe SC SCH (08:54)
[2017-01-13] MEDS: Tmp-Smz 800 mg-160 mg DS Tab PO SCH ×2 (08:54→21:29)
--- NOTE | 2017-01-13 14:42 | CP.PCM.PN ---
Subjective - Date & Time of Evaluation Date of Evaluation: 01/13/17 Time of Evaluation: 08:50 - Subjective Subjective: 46 y/o F admitted for severe bronchitis seen at bedside in not acute distress. Still c/o dry cough and pleuritic chest pain in the L/upper back. Afebrile. Patient on NC O2 2L PRN. She denies SOB, CP, palpitations. According to the patient she was using the O2 cos the nurse gave it to her last night. No abd pain, nausea or vomiting. Tolerating PO. No changes in urination or stools. Patient general status improved. Objective - Vital Signs/Intake and Output Vital Signs (last 24 hours): Temp Pulse Resp BP Pulse Ox 98.2 F 85 18 118/54 L 95 01/13/17 12:41 01/13/17 12:41 01/13/17 12:41 01/13/17 12:41 01/13/17 12:41 Intake and Output: 01/13/17 01/13/17 06:59 18:59 Intake Total 250 Balance 250 - Medications Medications: Current Medications Acetaminophen/Butalbital/Caffeine (Fioricet) 1 tab PO BID PRN PRN Reason: Migraine headache Last Admin: 01/13/17 13:13 Dose: 1 tab Albuterol Sulfate (Albuterol 0.083% Inhal Linnea (2.5 Mg/3 Ml) Ud) 2.5 mg IH RQ6 [facility] Last Admin: 01/13/17 14:00 Dose: 2.5 mg Amlodipine Besylate (Norvasc) 5 mg PO DAILY [facility] Last Admin: 01/13/17 08:56 Dose: 5 mg Benzonatate (Tessalon Perles) 200 mg PO TID PRN PRN Reason: Cough Divalproex Sodium (Depakote Dr(*Bid*)) 500 mg PO HS [facility] Last Admin: 01/12/17 21:45 Dose: 500 mg Doxycycline Hyclate (Doryx) 100 mg PO Q12 [facility] Last Admin: 01/13/17 08:55 Dose: 100 mg Enoxaparin Sodium (Lovenox) 40 mg SC DAILY [facility] PRN Reason: Protocol Last Admin: 01/13/17 08:54 Dose: 40 mg Famotidine (Pepcid) 20 mg PO BID [facility] Last Admin: 01/13/17 08:54 Dose: 20 mg Fluticasone Propionate (Flonase) 2 spr MAREN DAILY [facility] Last Admin: 01/13/17 08:54 Dose: 2 spr Guaifenesin/Codeine Phosphate (Robitussin W/Codeine) 10 ml PO Q4 [facility] Last Admin: 01/13/17 13:13 Dose: 10 ml Methylprednisolone 80 mg/ (Sodium Chloride) 50 mls @ 100 mls/hr IV Q8 [facility] Last Admin: 01/13/17 08:53 Dose: 100 mls/hr Ibuprofen (Motrin Tab) 600 mg PO Q6 PRN PRN Reason: Pain, moderate (4-7) Last Admin: 01/12/17 01:17 Dose: 600 mg Ketorolac Tromethamine (Toradol) 15 mg IVP Q6 PRN PRN Reason: Pain, severe (8-10) Last Admin: 01/13/17 13:13 Dose: 15 mg Lorazepam (Ativan) 1 mg PO DAILY PRN PRN Reason: Anxiety Last Admin: 01/12/17 14:52 Dose: 1 mg Prazosin HCl (Minipress) 5 mg PO [facility] Last Admin: 01/12/17 21:45 Dose: 5 mg Quetiapine Fumarate (Seroquel) 400 mg PO [facility] Last Admin: 01/12/17 21:45 Dose: 400 mg Sulfasalazine (Azulfidine) 500 mg PO BID [facility] Last Admin: 01/13/17 08:54 Dose: 500 mg Trimethoprim/Sulfamethoxazole (Bactrim Ds Tab) 1 tab PO Q12 [facility] Last Admin: 01/13/17 08:54 Dose: 1 tab Zolpidem Tartrate (Ambien) 5 mg PO [facility] Last Admin: 01/12/17 21:44 Dose: 5 mg - Labs Labs: 01/13/17 05:41 01/11/17 06:30 - Constitutional Appears: Non-toxic, No Acute Distress - Eye Exam Eye Exam: PERRL - ENT Exam ENT Exam: Mucous Membranes Moist - Respiratory Exam Respiratory Exam: Rales (few scattered rales bibasilar), NORMAL BREATHING PATTERN. absent: Wheezes - Cardiovascular Exam Cardiovascular Exam: REGULAR RHYTHM, +S1, +S2. absent: Gallop - GI/Abdominal Exam GI & Abdominal Exam: Soft, Normal Bowel Sounds - Neurological Exam Neurological Exam: Alert, Awake, Oriented x3 - Psychiatric Exam Psychiatric exam: Normal Affect, Normal Mood - Skin Skin Exam: Normal Color, Warm Assessment and Plan - Assessment and Plan (Free Text) Assessment: 46 y/o female with extensive medical history being admitted for severe bronchitis with SOB and failure outpatient and ED treatment Severe acute bronchitis Few scattered rales Pleuritic CP Chest xray negative Albuterol nebs Q3hrs steve Sulomedrol 40mg Q8hrs IV C/w Doxy 100mg PO daily (best choice given penicillin allergy and multiple psychiatric drugs concerning for drug interaction) tylenol for fever Robitusin w/codeine, Tessalon TID PRN for cough Dysuria Acute Neg UA Urine Cx: showed E -Choli sensitive to Bactrim Bactrim DS 1 tab Q12 Leukocytosis afebrile most likely due to penitentiary steroids use Bipolar disorder c/w Seroquel and Depakote as outpatient Rheumatoid arthritis Previous records reviewed Joint pain C/W Sulfasalazine Toradol for severe pain Motrin for moderate pain Hypertension controlled C/w Norvasc Dvt prophylaxis Lovenox 40mg [facility]
[2017-01-13] MEDS: methylPREDNISolone 40 MG in Sodium Chloride 0.9% 50 ML IV SCH (17:48)
[2017-01-13] MEDS: Divalproex 500 mg DR(BID formulation) PO SCH (21:30)
[2017-01-14] MEDS: methylPREDNISolone 40 MG in Sodium Chloride 0.9% 50 ML IV SCH ×2 (00:40→09:48)
[2017-01-14] MEDS: guaiFENesin-Codeine 100-10mg/5ml Syrup (5 ml) UD PO SCH ×3 (01:00→09:46)
[2017-01-14] MEDS: Albuterol 0.083% Inhal Sol (2.5 mg/3 mL) UD IH SCH ×2 (01:04→07:43)
[2017-01-14] MEDS: Apap-Butalbital-Caffeine 325-50-40mg Tab PO PRN (06:04)
[2017-01-14 08:17] VITALS: BP 118/71; PULSE 96; RESP 18; TEMP 98.1; O2SAT 97
[2017-01-14] MEDS: Tmp-Smz 800 mg-160 mg DS Tab PO SCH (09:41)
[2017-01-14] MEDS: Enoxaparin 40 mg Syringe SC SCH (09:43)
--- NOTE | 2017-01-14 10:48 | CP.PCM.DIS ---
Provider - Provider Date of Admission: 01/10/17 17:50 Attending physician: Deepti Jansen MD Primary care physician: Katie Morton MD Time Spent in preparation of Discharge (in minutes): 35 Diagnosis - Discharge Diagnosis (1) Bronchitis Status: Acute Priority: High Comment: Severe. Improved. DC on Doxycicline, Prednisone, albuterol (2) Benign essential hypertension Status: Chronic (3) Bipolar 1 disorder Status: Chronic Priority: High Comment: Cont home treatment (4) Rheumatoid arthritis Status: Acute Comment: Cont Sulfasalazine Hospital Course - Lab Results Lab Results: Most Recent Lab Values WBC 19.5 K/uL (4.8-10.8) H 01/13/17 05:41 RBC 4.16 Mil/uL (3.80-5.20) 01/13/17 05:41 Hgb 12.1 g/dL (12.0-16.0) 01/13/17 05:41 Hct 37.7 % (34.0-47.0) 01/13/17 05:41 MCV 90.6 fl (81.0-99.0) 01/13/17 05:41 MCH 29.2 pg (27.0-31.0) 01/13/17 05:41 MCHC 32.2 g/dL (33.0-37.0) L 01/13/17 05:41 RDW 15.3 % (11.5-14.5) H 01/13/17 05:41 Plt Count 296 K/uL (130-400) 01/13/17 05:41 MPV 8.7 fl (7.2-11.7) 01/12/17 05:30 Neut % (Auto) 86.1 % (50.0-75.0) H 01/12/17 05:30 Lymph % (Auto) 9.0 % (20.0-40.0) L 01/12/17 05:30 Pike % (Auto) 4.6 % (0.0-10.0) 01/12/17 05:30 Eos % (Auto) 0.0 % (0.0-4.0) 01/12/17 05:30 Baso % (Auto) 0.3 % (0.0-2.0) 01/12/17 05:30 Neut # 19.1 K/uL (1.8-7.0) H 01/12/17 05:30 Lymph # 2.0 K/uL (1.0-4.3) 01/12/17 05:30 Pike # 1.0 K/uL (0.0-0.8) H 01/12/17 05:30 Eos # 0.0 K/uL (0.0-0.7) 01/12/17 05:30 Baso # 0.1 K/uL (0.0-0.2) 01/12/17 05:30 Neutrophils % (Manual) 76 % (42-75) H 01/12/17 05:30 Band Neutrophils % 1 % (0-2) 01/12/17 05:30 Lymphocytes % (Manual) 13 % (20-50) L 01/12/17 05:30 Reactive Lymphs % 4 % (0-0) H 01/12/17 05:30 Monocytes % (Manual) 6 % (0-10) 01/12/17 05:30 Platelet Estimate Normal (NORMAL) 01/12/17 05:30 Hypochromasia (manual) Slight 01/12/17 05:30 Anisocytosis (manual) Slight 01/12/17 05:30 Sodium 135 mmol/l (132-148) 01/11/17 06:30 Potassium 4.3 MMOL/L (3.6-5.0) 01/11/17 06:30 Chloride 101 mmol/L (98-107) 01/11/17 06:30 Carbon Dioxide 23 mmol/L (22-30) 01/11/17 06:30 Anion Gap 16 (10-20) 01/11/17 06:30 BUN 16 mg/dl (7-17) 01/11/17 06:30 Creatinine 0.6 mg/dL (0.7-1.2) L 01/11/17 06:30 Est GFR ( Amer) > 60 01/11/17 06:30 Est GFR (Non-Af Amer) > 60 01/11/17 06:30 Random Glucose 192 mg/dL (65-105) H 01/11/17 06:30 Calcium 9.0 mg/dL (8.4-10.2) 01/11/17 06:30 Magnesium 2.1 MG/DL (1.6-2.3) 01/10/17 13:20 Total Bilirubin 0.2 mg/dl (0.2-1.3) 01/11/17 06:30 AST 35 U/L (14-36) 01/11/17 06:30 ALT 35 U/L (9-52) 01/11/17 06:30 Alkaline Phosphatase 93 U/L (38-126) 01/11/17 06:30 Troponin I < 0.0120 ng/mL (0.00-0.120) 01/10/17 13:20 Total Protein 6.8 G/DL (6.3-8.2) 01/11/17 06:30 Albumin 4.1 g/dL (3.5-5.0) 01/11/17 06:30 Globulin 2.7 gm/dL (2.2-3.9) 01/11/17 06:30 Albumin/Globulin Ratio 1.5 (1.0-2.1) 01/11/17 06:30 Procalcitonin <= 0.05 NG/ML (0.19-0.49) L 01/13/17 05:41 Urine Color Neli (YELLOW) 01/10/17 15:00 Urine Clarity Slighty-cloudy (Clear) 01/10/17 15:00 Urine pH 6.0 (5.0-8.0) 01/10/17 15:00 Ur Specific [place] 1.029 (1.003-1.030) 01/10/17 15:00 Urine Protein 100 mg/dL (NEGATIVE) 01/10/17 15:00 Urine Glucose (UA) Neg mg/dL (Normal) 01/10/17 15:00 Urine Ketones Negative mg/dL (NEGATIVE) 01/10/17 15:00 Urine Blood Negative (NEGATIVE) 01/10/17 15:00 Urine Nitrate Negative (NEGATIVE) 01/10/17 15:00 Urine Bilirubin Negative (NEGATIVE) 01/10/17 15:00 Urine Urobilinogen 0.2-1.0 mg/dL (0.2-1.0) 01/10/17 15:00 Ur Leukocyte Esterase Neg Marina/uL (Negative) 01/10/17 15:00 Urine RBC (Auto) 3 /hpf (0-3) 01/10/17 15:00 Urine Microscopic WBC 3 /hpf (0-5) 01/10/17 15:00 Ur Squamous Epith Cells 19 /hpf (0-5) H 01/10/17 15:00 Urine Bacteria Rare (<OCC) 01/10/17 15:00 - Hospital Course Hospital Course: 46 y/o F with pmhx of chronic migraine, fibromyalgia, RA, cervical radiculopathy , and Bipolar disorder presented to ED because of persistent SOB for the past 2 weeks before admission and failure to outpatient treatment. Patient also c/o pleuritic CP. She was noticed to have poor air entrance on PE with wheezing and was admitted to hosp. She was treated with steroids, ABX, and albuterol. While in the hosp she c/o dysuria and UCx was positive for E.Coli sensitive to Bactrim. Today after markedly improvement in physical status she is decided to DC home to finish abx treatment, albuterol nebs and short course of Prednisone PO. Patient has appt with PMD in 2 days. Discharge meds: Quetiapine Fumarate [Seroquel] 300 mg PO HS lamoTRIgine [LaMICtal] 100 mg PO DAILY Meclizine [Antivert] 25 mg PO Q6 PRN Prazosin [Prazosin HCl] 2 mg PO HS 10/02/16 Divalproex [Depakote ER] 500 mg PO DAILY LORazepam [Ativan] 1 mg PO DAILY PRN DULoxetine [Cymbalta] 20 mg PO DAILY Albuterol 0.083% [Albuterol 3 ml IH Q6 Sulfate 3 Ml] Albuterol HFA [Ventolin HFA 90 1 puff IH Q6 mcg/actuation (8 g)] Doxicycline 100mg 1 tab BID for 3 days(N) Bactrim DS 1 tab BID for 2 days(N) predniSONE [predniSONE Tab] 40 mg PO DAILY x 3 days then 20mg for 3 days(N) Discharge Exam - Head Exam Head Exam: NORMOCEPHALIC - Eye Exam Eye Exam: PERRL - ENT Exam ENT Exam: Mucous Membranes Moist - Respiratory Exam Respiratory Exam: Rales (scattered crackles bibasilar), NORMAL BREATHING PATTERN , UNREMARKABLE. absent: Accessory Muscle Use, Decreased Breath Sounds, Rhonchi , Wheezes - Cardiovascular Exam Cardiovascular Exam: REGULAR RHYTHM, +S1, +S2. absent: Gallop - GI/Abdominal Exam GI & Abdominal Exam: Normal Bowel Sounds, Unremarkable - Neurological Exam Neurological exam: Alert, Oriented x3 - Psychiatric Exam Psychiatric exam: Normal Affect, Normal Mood - Skin Skin Exam: Normal Color, Warm Discharge Plan - Discharge Medications Prescriptions: Doxycycline Monohydrate 100 mg PO Q12 #6 tablet Naproxen [Naprosyn] 500 mg PO Q12 PRN #28 tablet PRN Reason: Pain, Moderate (4-7) predniSONE [predniSONE Tab] 20 mg PO DAILY #10 tab Sulfamethoxazole/Trimethoprim [Bactrim DS 800 mg-160 mg] 1 tab PO Q12 #4 tab - Follow Up Plan Condition: GOOD Disposition: HOME/ ROUTINE Instructions: Asthma (DC) Additional Instructions: F/U with PMD dr. Morton in 2 days, pt has appt 01/16/17. Referrals: Katie Morton MD [Primary Care Provider] -
== END 2017-01-14 12:46 | disposition home or self-care (01) | DRG 97 ==
LOC: H.ER 11:41 → H.ERHOLD 17:50 → H.TEL 20:39
PROVIDERS: ADMIT Family Medicine; ATTEND Family Medicine
PROC: 3E0234Z Introduction of Serum, Toxoid and Vaccine into Muscle, Percutaneous Approach (ICD-10-PCS; principal; 2017-01-11)
DX: J20.9 Acute bronchitis, unspecified (principal); I10 Essential (primary) hypertension; F31.9 Bipolar disorder, unspecified; F43.10 Post-traumatic stress disorder, unspecified; M06.9 Rheumatoid arthritis, unspecified; M79.7 Fibromyalgia; Z88.0 Allergy status to penicillin; R30.0 Dysuria; G43.709 Chronic migraine without aura, not intractable, without status migrainosus; Z23 Encounter for immunization; F41.9 Anxiety disorder, unspecified; B96.20 Unspecified Escherichia coli [E. coli] as the cause of diseases classified elsewhere

== ENCOUNTER 2017-01-27 07:00 | Day surgery (SDC) | payer SELFPAY ==
[2017-01-27 07:33] VITALS: BMI 36.2
[2017-01-27] MEDS ORDERED: Lidocaine 1% 20 MG/2 ML PF AMP ONE (07:51)
[2017-01-27] MEDS ORDERED: MethylPREDNISolone Depo 40 mg/ml Inj ONE (07:51)
[2017-01-27] MEDS ORDERED: Iohexol 300 10 ML ONE (07:52)
[2017-01-27] MEDS ORDERED: Lidocaine 1% Inj (20ml) ONE (07:52)
[2017-01-27] MEDS ORDERED: methylPREDNISolone Depo 80 mg/ml Inj ONE (07:52)
[2017-01-27] MEDS ORDERED: Propofol 10 mg/ml Inj (20 ML) ONE (08:10)
[2017-01-27] MEDS ORDERED: Lactated Ringer's 1,000 ML IV ONE (08:22)
[2017-01-27] MEDS ORDERED: Bupivacaine HCl 0.25% PF (10 ml) Inj IJ ONE (08:25)
[2017-01-27] MEDS ORDERED: Lidocaine 1% Inj (20ml) IJ ONE (08:29)
[2017-01-27] MEDS ORDERED: Lactated Ringer's 1,000 ML IV SCH (09:01)
[2017-01-27] MEDS ORDERED: HYDROmorphone 0.5 mg/0.5 ml ISec IVP PRN (09:03)
[2017-01-27 09:08] VITALS: RESP 18
[2017-01-27 11:20] VITALS: BP 136/88; PULSE 90; TEMP 98.8; O2SAT 98
--- NOTE | 2017-01-27 14:58 | OP ---
PROCEDURE DATE: 01/27/2017 PREOPERATIVE DIAGNOSIS: Right greater trochanter bursitis. POSTOPERATIVE DIAGNOSIS: Right greater trochanter bursitis. PROCEDURE PERFORMED: Injection of right greater trochanter bursa with steroids under fluoroscopic gu idance. EXPECTED BLOOD LOSS: None. COMPLICATIONS: None. ANESTHESIOLOGIST: Dr. Coker. TECHNIQUE: After informed consent was obtained, the patient was brought to the OR and placed on the table in the supine position. All pressure points were padded and sedation was administered by helio medina. The right hip and groin were prepped with iodine x 3 and draped in normal sterile fashion. X -ray was used in the AP view to delineate the right greater trochanter. 1 mL of 1% lidocaine was use d to create a skin wheal, using a 25 gauge needle. A 22-gauge 5-inch spinal needle was advanced unde r AP fluoroscopic guidance to contact the right greater trochanter. There was no paresthesia during placement of the needle. After negative aspiration for heme or CSF, 1 mL of Omnipaque 300 contrast d ye was used to delineate the right greater trochanteric bursa. After negative aspiration for heme or CSF, 4 mL of 0.25% preservative-free Marcaine and Depo-Medrol was easily instilled. The patient was brought to stage 2 recovery room with stable vital signs and bilateral lower extremity motor and sen edenilson intact. 80 mg of Depo-Medrol was used for the case. Jono Salmeron MD cc: [id number] TT: 01/27/2017 14:57:54 [email or web address]
--- NOTE | 2017-01-27 15:29 | RAD ---
PROCEDURE: Intraoperative Fluoroscopy. HISTORY: PAIN MANAGEMENT FINDINGS: Fluoroscopic assistance was provided for pain management. Please
== END 2017-01-27 11:50 | disposition home or self-care (01) ==
LOC: H.OPSURG 07:00
PROVIDERS: ATTEND Anesthesiology Pain Medicine
DX: M70.61 Trochanteric bursitis, right hip (principal); I10 Essential (primary) hypertension; J20.9 Acute bronchitis, unspecified

== ENCOUNTER 2017-02-24 17:01 | Observation (INO) | payer OTHER ==
[2017-02-24 17:02] VITALS: BMI 36.2
[2017-02-24 17:32] VITALS: BP 141/90; RESP 18; TEMP 99.1; O2SAT 98
[2017-02-24] MEDS ORDERED: Sodium Chloride 0.9% 1,000 ML IV STA (18:04)
[2017-02-24 18:38] LABS: SQUAMOUS EPITHIAL 5 /hpf (0-5); URINE BILIRUBIN NEGATIVE (NEGATIVE); URINE BLOOD NEGATIVE (NEGATIVE); URINE CLARITY CLEAR (Clear); URINE COLOR YELLOW (YELLOW); URINE GLUCOSE (UA) NEG (Normal); URINE LEUKOCYTE ESTERASE NEG Leu/uL (Negative); URINE NITRATE NEGATIVE (NEGATIVE); URINE PROTEIN NEGATIVE (NEGATIVE); URINE UROBILINOGEN 0.2-1.0 mg/dL (0.2-1.0)
--- NOTE | 2017-02-24 19:01 | ED PDOC ---
HPI: General Adult Time Seen by Provider: 02/24/17 17:25 Chief Complaint (Nursing): Flu-like Symptoms Chief Complaint (Provider): Left sided flank pain History Per: Patient History/Exam Limitations: no limitations Onset/Duration Of Symptoms: Persistent (1 week ) Current Symptoms Are (Timing): Still Present Additional Complaint(s): Xenia Rossi is a 47 y/o female presenting to the ER on 02/24/2017 with complaints of left-sided flank pain for the past week associated with dysuria and hematuria. Patient was initially seen at [facility] where she had blood work and CT performed. Upon discharge, she was told she had an urinary tract infection. She was prescribed Macrobid which she has not taken due to financial issues. Patient states she also felt myalgias over past two days with worsening pain in left flank and persistent dysuria. She self- medicated with Cipro which she had from previous infection. Patient denies fever , cough, congestion abdominal pain, chest pain, palpitations, or shortness of breath Past Medical History Reviewed: Historical Data, Nursing Documentation, Vital Signs Vital Signs: Last Vital Signs Temp 99.1 F 02/24/17 17:27 Pulse 96 H 02/24/17 17:27 Resp 18 02/24/17 17:27 BP 141/90 02/24/17 17: Pulse Ox 98 02/24/17 19:03 - Medical History PMH: Anxiety, Arthritis, Back Problems, Bipolar Disorder, Bronchitis, Depression , Fibromyalgia, HTN, Migraine, Post Traumatic Stress Disorder, Rheumatoid Arthritis, Seizures Denies: HIV, Pneumothorax, Chronic Kidney Disease, Sexually Transmitted Disease - Surgical History Surgical History: Appendectomy, Cholecystectomy, Tonsillectomy, (ALso Hysterectomy) - Family History Family History: States: Unknown Family Hx - Social History Current smoker - smoking cessation education provided: No Alcohol: None Drugs: Denies - Immunization History Hx Tetanus Toxoid Vaccination: No Hx Influenza Vaccination: No Hx Pneumococcal Vaccination: No - Home Medications Home Medications: Ambulatory Orders Medication Instructions Recorded Prazosin [Prazosin HCl] 5 mg PO HS 10/02/16 LORazepam [Ativan] 1 mg PO DAILY PRN 10/28/16 Acetaminophen/Butalbital/Caf 1 tab PO BID PRN 01/10/17 [Fioricet] Divalproex [Depakote DR] 500 mg PO HS 01/10/17 Famotidine [Pepcid] 20 mg PO BID 01/10/17 Quetiapine Fumarate [Seroquel] 400 mg PO HS 01/10/17 SulfaSALAzine [Azulfidine] 500 mg PO BID 01/10/17 Zolpidem [Ambien] 5 mg PO HS 01/10/17 amLODIPine [Norvasc] 5 mg PO DAILY 01/10/17 Naproxen [Naprosyn] 500 mg PO Q12 PRN #28 tablet 01/14/17 Nitrofurantoin Macrocrystals 1 cap PO BID #14 cap 02/20/17 [Macrobid] Polyethylene Glycol 3350 [Miralax] 17 gm PO DAILY #270 ml 02/20/17 - Allergies Allergies/Adverse Reactions: Allergies Allergy/AdvReac Type Severity Reaction Status Date / Time Penicillins Allergy Severe SWELLING Verified 01/10/17 11:56 Review of Systems ROS Statement: Except As Marked, All Systems Reviewed And Found Negative Constitutional: Positive for: Other ((+) myalgia ) ENT: Negative for: Nose Congestion Cardiovascular: Negative for: Chest Pain, Palpitations Respiratory: Negative for: Cough Gastrointestinal: Negative for: Abdominal Pain Genitourinary Female: Positive for: Dysuria, Hematuria Musculoskeletal: Positive for: Back Pain ((+) left sided flank pain) Neurological: Negative for: Weakness, Numbness Physical Exam - Reviewed Nursing Documentation Reviewed: Yes Vital Signs Reviewed: Yes - Physical Exam Appears: Positive for: Non-toxic, No Acute Distress Head Exam: Positive for: ATRAUMATIC, NORMOCEPHALIC Skin: Positive for: Normal Color. Negative for: Rash Eye Exam: Positive for: Normal appearance, EOMI, PERRL ENT: Positive for: Normal ENT Inspection Neck: Positive for: Normal, Painless ROM, Supple Cardiovascular/Chest: Positive for: Regular Rate, Rhythm. Negative for: Murmur Respiratory: Positive for: Normal Breath Sounds. Negative for: Respiratory Distress Gastrointestinal/Abdominal: Positive for: Normal Exam, Soft. Negative for: Tenderness Back: Positive for: Normal Inspection, L CVA Tenderness. Negative for: R CVA Tenderness Extremity: Positive for: Normal ROM. Negative for: Deformity, Swelling Neurologic/Psych: Positive for: Alert, Oriented. Negative for: Motor/Sensory Deficits - Laboratory Results Result Diagrams: 02/24/17 19:35 02/24/17 19:35 - ECG O2 Sat by Pulse Oximetry: 98 Medical Decision Making Medical Decision Makin:25 Initial Impression- 47 y/o female with left-sided flank pain Initial Plan- * EKG * CMP * CPK Urine Dip * Urine Preg * CBC w/ differential * Toradol 15 mg IVP * Sodium Chloride 1,000 ml * Urine C&S * Ultrasound Renal Documented by Colton Tinajero, acting as a scribe for Simón Otoole PA-C All medical record entries made by the Scribe were at my direction and personally dictated by me. I have reviewed the chart and agree that the record accurately reflects my personal performance of the history, physical exam, medical decision making, and the department course for this patient. I have also personally directed, reviewed, and agree with the discharge instructions and disposition. ED OBSERVATION Discharge: Yes Date of observation admission: 02/24/17 Time of observation admission: 18:06 - Observation admission statement Patient is being placed in observation because:: diffuse myalgias - Progress Note Progress Note: 02/24/17 20:43 Renal US: No hydronephrosis. No shadowing renal calculi. 1.2 cm left renal simple cyst. Echogenic liver consistent with fatty infiltration versus nonspecific hepatocellular disease Pt. is aware of L renal cyst. Reports moderate pain relief. Pt. is requesting Naproxen and a muscle relaxant Rx. Disposition - Clinical Impression Clinical Impression: Myalgia - Patient ED Disposition Is Patient to be Admitted: No - Disposition Disposition: Routine/Home Disposition Time: 20:45 Condition: STABLE
[2017-02-24 19:53] LABS: BASO # 0.1 K/uL (0.0-0.2); BASO % 0.7 % (0.0-2.0); EOS # 0.1 K/uL (0.0-0.7); EOS % 1.1 % (0.0-4.0); HEMOGLOBIN 12.8 g/dL (12.0-16.0); LYMPH # 2.1 K/uL (1.0-4.3); LYMPH % 23.9 % (20.0-40.0); MEAN CELL VOLUME 91.9 fl (81.0-99.0); MEAN CORPUSCULAR HEMOGLOBIN 30.2 pg (27.0-31.0); MEAN CORPUSCULAR HGB CONC 32.9 g/dL (33.0-37.0); MEAN PLATELET VOLUME 8.9 fl (7.2-11.7); MONO # 0.8 K/uL (0.0-0.8); MONO % 9.5 % (0.0-10.0); NEUT # 5.7 K/uL (1.8-7.0); NEUT % 64.8 % (50.0-75.0); RBC 4.24 Mil/uL (3.80-5.20); RED CELL DISTRIBUTION WIDTH 14.6 % (11.5-14.5); WHITE BLOOD COUNT 8.8 K/uL (4.8-10.8)
[2017-02-24 20:03] LABS: ALB/GLOB RATIO 1.4 (1.0-2.1); ALBUMIN 4.1 g/dL (3.5-5.0); ALT/SGPT 45 U/L (9-52); AST/SGOT 23 U/L (14-36); BLOOD UREA NITROGEN 16 mg/dl (7-17); CALCIUM 9.1 mg/dL (8.4-10.2); GFR AFRICAN-AMERICAN > 60; GFR NON-AFRICAN AMERICAN > 60
[2017-02-24 21:04] VITALS: PULSE 87
--- NOTE | 2017-02-25 08:17 | CARD ---
APPROVED REPORT EKG Measurement Heart [id number] <Conclusion> Normal sinus rhythm Normal ECG
--- NOTE | 2017-02-25 10:34 | US ---
PROCEDURE: Ultrasound of the Kidneys HISTORY: L flank pain COMPARISON: 09/19/2016. TECHNIQUE: Sonogram of the kidneys. FINDINGS: RIGHT KIDNEY: Measures: 3.8 x 4.6 x 13 cm. Normal in size, contour and echogenicity. No stone, solid mass lesion or hydronephrosis visualized. LEFT KIDNEY: Measures: 5.5 x 5.7 x 12.3 cm. Normal in size, contour and echogenicity. No stone, solid mass lesion or hydronephrosis visualized. Incidental finding(s): Midpole cyst 1 cm OTHER FINDINGS: None. IMPRESSION: Unremarkable renal sonogram.No significant interval change compared to the prior examination(s).
== END 2017-02-24 21:04 | disposition home or self-care (01) ==
LOC: H.ER 17:01 → H.EROBSV 18:06
PROVIDERS: ADMIT Emergency Medicine; ATTEND Emergency Medicine
DX: M79.7 Fibromyalgia (principal); F31.9 Bipolar disorder, unspecified; F43.10 Post-traumatic stress disorder, unspecified; I10 Essential (primary) hypertension; M06.9 Rheumatoid arthritis, unspecified; F32.9 Major depressive disorder, single episode, unspecified; F41.9 Anxiety disorder, unspecified; G43.909 Migraine, unspecified, not intractable, without status migrainosus; M19.90 Unspecified osteoarthritis, unspecified site; R56.9 Unspecified convulsions; R31.9 Hematuria, unspecified; R30.0 Dysuria

== ENCOUNTER 2017-03-24 09:51 | Day surgery (SDC) | payer SELFPAY ==
[2017-03-24] MEDS ORDERED: Lactated Ringer's 1,000 ML IV ONE (11:07)
[2017-03-24] MEDS ORDERED: methylPREDNISolone Depo 80 mg/ml Inj ONE (11:20)
[2017-03-24] MEDS ORDERED: Iohexol 300 10 ML ONE (11:21)
[2017-03-24] MEDS ORDERED: Bupivacaine HCl 0.25% PF (10 ml) Inj ONE (11:21)
[2017-03-24] MEDS ORDERED: Lidocaine 1% Inj (20ml) ONE (11:21)
[2017-03-24] MEDS ORDERED: Midazolam 2 MG/2 ML VIAL ONE (12:01)
[2017-03-24] MEDS ORDERED: Propofol 10 mg/ml Inj (20 ML) ONE (12:11)
[2017-03-24] MEDS ORDERED: Lactated Ringer's 1,000 ML IV SCH (12:42)
[2017-03-24 14:11] VITALS: RESP 20; O2SAT 100
[2017-03-24 15:19] VITALS: BP 120/70; PULSE 68; TEMP 97.2
--- NOTE | 2017-03-24 18:21 | OP ---
PROCEDURE: Caudal epidural under fluoroscopic guidance. PREOPERATIVE DIAGNOSIS: Lumbar radiculopathy. POSTOPERATIVE DIAGNOSIS: Lumbar radiculopathy. COMPLICATIONS: None. ESTIMATED BLOOD LOSS: None. DESCRIPTION OF PROCEDURE: After the informed consent was obtained, the patient was brought to the OR and placed on the table on prone position. All pressure points were padded, and sedation was administered by anesthesia. The lumbosacral spine was prepped with iodine x3 and draped in normal sterile fashion. X-ray was used in the AP and lateral views to identify the sacral hiatus. A 2 mL of 1% lidocaine was used to create a wheal, while using a 25-gauge needle. Using x-ray in the lateral view, a 22-gauge Tuohy epidural needle was advanced to allen the sacrococcygeal ligament. There was no paresthesia during placement of needle. After negative aspiration for heme or CSF, 2 mL of Omnipaque contrast dye was used to delineate the epidural space. After negative aspiration for heme or CSF, 20 mL of 0.5% preservative free lidocaine with 2 mL of 0.25% preservative bupivacaine and 80 mg Depo-Medrol was easily instilled into the epidural space. There was no paresthesias during the procedure. The patient was brought to stage II recovery room with bilateral lower extremity motor and sensory intact. Jono Salmeron MD [facility]
--- NOTE | 2017-03-26 15:52 | RAD ---
PROCEDURE: Sacral Epidural Injection HISTORY: PAIN MANAGEMENT TECHNIQUE: Fluoroscopic guidance was provided for epidural injection for pain management purposes. FINDINGS: Submitted images from the current procedure: 3.0. Total fluoroscopic time (continuous mode) utilized during the procedure: 14.4 seconds. IMPRESSION: Fluoroscopic guidance provided for epidural injection. Please refer procedure.
== END 2017-03-24 15:10 | disposition home or self-care (01) ==
LOC: H.OPSURG 09:51
PROVIDERS: ATTEND Anesthesiology Pain Medicine
DX: M54.16 Radiculopathy, lumbar region (principal); M54.5 Low back pain

== ENCOUNTER 2017-04-08 17:29 | Emergency (ER) | payer SELFPAY ==
[2017-04-08 17:29] VITALS: BMI 36.2
[2017-04-08] MEDS ORDERED: Nitroglycerin 2% Ointment Foilpak UD TOP STA (18:01)
--- NOTE | 2017-04-08 18:11 | ED PDOC ---
HPI: Chest Pain Time Seen by Provider: 04/08/17 17:39 Chief Complaint (Nursing): Chest Pain Chief Complaint (Provider): Chest Pain History Per: Patient History/Exam Limitations: no limitations Onset/Duration Of Symptoms: Hrs (since 12pm) Current Symptoms Are (Timing): Still Present Exacerbating Factors: Deep Breathing Additional Complaint(s): Xenia is a 47 y/o female with a past medical history of fibromyalgia, hypertension, arthritis, and osteopenia, who presents to the ED complaining of chest pain, onset at 12pm today while she was driving. Pain is described as left -sided radiating to midline, and increases with deep inspiration. Denies cough, shortness of breath, increased stress or anxiety, fever, and lightheadedness. Patient also reports bilateral lower leg swelling intermittently for 2 months. Seen [facility] by [facility], who sent her to ED for further evaluation. PMD: [facility] Past Medical History Reviewed: Historical Data, Nursing Documentation, Vital Signs Vital Signs: Last Vital Signs Temp 98.2 F 04/08/17 21:33 Pulse 82 04/08/17 21:33 Resp 18 04/08/17 21:33 BP 139/80 04/08/17 21:33 Pulse Ox 100 04/09/17 14:17 - Medical History PMH: Anxiety, Arthritis, Back Problems, Bipolar Disorder, Bronchitis, Depression , Fibromyalgia, HTN, Migraine, Post Traumatic Stress Disorder, Rheumatoid Arthritis, Seizures Denies: HIV, Pneumothorax, Chronic Kidney Disease, Sexually Transmitted Disease - Surgical History Surgical History: Appendectomy, Cholecystectomy, Tonsillectomy, (ALso Hysterectomy) - Family History Family History: States: Hypertension - Social History Current smoker - smoking cessation education provided: No Alcohol: None Drugs: Denies - Immunization History Hx Tetanus Toxoid Vaccination: No Hx Influenza Vaccination: No Hx Pneumococcal Vaccination: No - Home Medications Home Medications: Ambulatory Orders Medication Instructions Recorded Divalproex [Depakote DR] 500 mg PO BID 04/08/17 Ibuprofen [Motrin Tab] 600 mg PO Q8 PRN #60 tab 04/08/17 Metoclopramide [Reglan] 1 tab PO TID PRN #30 tab 04/08/17 Prazosin HCL [Minipress] 5 mg PO HS 04/08/17 Quetiapine Fumarate [Seroquel] 400 mg PO HS 04/08/17 amLODIPine [Norvasc] 5 mg PO DAILY 04/08/17 - Allergies Allergies/Adverse Reactions: Allergies Allergy/AdvReac Type Severity Reaction Status Date / Time Penicillins Allergy Severe SWELLING Verified 01/10/17 11:56 Review of Systems ROS Statement: Except As Marked, All Systems Reviewed And Found Negative (as per HPI) Constitutional: Negative for: Fever Cardiovascular: Positive for: Chest Pain (left side radiating to midline). Negative for: Light Headedness Respiratory: Negative for: Cough, Shortness of Breath Musculoskeletal: Positive for: Back Pain, Leg Pain (Hip), Other (Bilateral lower leg swelling) Neurological: Positive for: Headache, Other (Paresthesias intermittently to both hands) Psych: Negative for: Anxiety Physical Exam - Reviewed Nursing Documentation Reviewed: Yes Vital Signs Reviewed: Yes - Physical Exam Appears: Positive for: Non-toxic, No Acute Distress Head Exam: Positive for: ATRAUMATIC, NORMOCEPHALIC Skin: Positive for: Warm, Dry Eye Exam: Positive for: EOMI, PERRL ENT: Negative for: Pharyngeal Erythema, Tonsillar Exudate Neck: Positive for: Painless ROM, Supple Cardiovascular/Chest: Positive for: Regular Rate, Rhythm, Chest Non Tender. Negative for: Murmur Respiratory: Positive for: Normal Breath Sounds. Negative for: Respiratory Distress Gastrointestinal/Abdominal: Positive for: Soft. Negative for: Tenderness Back: Positive for: Normal Inspection. Negative for: Vertebral Tenderness Extremity: Positive for: Normal ROM, Pedal Edema (bilateral ankle nonpitting). Negative for: Calf Tenderness Lymphatic: Negative for: Adenopathy Neurologic/Psych: Positive for: Alert. Negative for: Motor/Sensory Deficits - Laboratory Results Result Diagrams: 04/08/17 18:04 04/08/17 18:10 Urine dip results: Negative for: Leukocyte Esterase, Blood, Nitrate, Ketones, Glucose, Bilirubin, Protein - ECG ECG: Positive for: Interpreted By Me ECG Rhythm: Positive for: Normal QRS, Normal ST Segment, Sinus Rhythm O2 Sat by Pulse Oximetry: 100 (RA) Pulse Ox Interpretation: Normal Medical Decision Making Medical Decision Making: Initial Impression: Chest pain Differential includes osteopenia, ACS, Anxiety, PE Time: 17:56 Initial Plan: --Labs --EKG --CXR --Given Aspirin and Nitro Labs unremarkable. [facility] resident who came and evaluated patient. Very unlikely cardiac chest pain and urgent care appointment setup at clinic for patient to follow up. Scribe Attestation: Documented by Linda Galvez, acting as a scribe for Gifty Méndez MD Provider Scribe Attestation: All medical record entries made by the Scribe were at my direction and personally dictated by me. I have reviewed the chart and agree that the record accurately reflects my personal performance of the history, physical exam, medical decision making, and the department course for this patient. I have also personally directed, reviewed, and agree with the discharge instructions and disposition. Disposition - Clinical Impression Clinical Impression: Atypical chest pain - Disposition Referrals: [facility] [Outside] Disposition: Routine/Home Disposition Time: 21:30 Condition: GOOD Prescriptions: Ibuprofen [Motrin Tab] 600 mg PO Q8 PRN #60 tab PRN Reason: Pain, Moderate (4-7) Metoclopramide [Reglan] 1 tab PO TID PRN #30 tab PRN Reason: Nausea/Vomiting Instructions: Chest Pain (ED)
[2017-04-08] MEDS ORDERED: Nitroglycerin 2% Ointment Foilpak UD TOP ONE (18:14)
[2017-04-08 18:17] LABS: BASO # 0.1 K/uL (0.0-0.2); BASO % 1.3 % (0.0-2.0); EOS # 0.1 K/uL (0.0-0.7); EOS % 1.1 % (0.0-4.0); HEMATOCRIT 38.9 % (34.0-47.0); LYMPH # 3.2 K/uL (1.0-4.3); MEAN CELL VOLUME 92.4 fl (81.0-99.0); MEAN CORPUSCULAR HEMOGLOBIN 30.8 pg (27.0-31.0); MEAN CORPUSCULAR HGB CONC 33.3 g/dL (33.0-37.0); MEAN PLATELET VOLUME 8.3 fl (7.2-11.7); MONO # 0.8 K/uL (0.0-0.8); MONO % 7.7 % (0.0-10.0); NEUT # 6.5 K/uL (1.8-7.0); NEUT % 59.9 % (50.0-75.0); RED CELL DISTRIBUTION WIDTH 14.5 % (11.5-14.5); WHITE BLOOD COUNT 10.8 K/uL (4.8-10.8)
[2017-04-08 18:28] LABS: ALB/GLOB RATIO 1.4 (1.0-2.1); ALKALINE PHOSPHATASE 114 U/L (38-126); ALT/SGPT 39 U/L (9-52); AST/SGOT 23 U/L (14-36); BILIRUBIN,TOTAL 0.3 mg/dl (0.2-1.3); BLOOD UREA NITROGEN 17 mg/dl (7-17); CALCIUM 9.2 mg/dL (8.4-10.2); CARBON DIOXIDE 25 mmol/L (22-30); CHLORIDE 102 mmol/L (98-107); GFR AFRICAN-AMERICAN > 60; GLUCOSE,RANDOM 92 mg/dL (65-105); PHOSPHOROUS 3.6 mg/dl (2.5-4.5); POTASSIUM 4.3 MMOL/L (3.6-5.0); SODIUM 136 mmol/l (132-148); TOTAL PROTEIN 7.3 G/DL (6.3-8.2)
[2017-04-08 18:41] LABS: PARTIAL THROMBOPLASTIN TIME 31.1 Seconds (25.6-37.1)
[2017-04-08 18:57] LABS: THYROID STIMULATING HORMONE 1.49 mIU/ML (0.46-4.68)
[2017-04-08] MEDS ORDERED: DiphenhydrAMINE 50 mg/ml Inj IVP STA (20:07)
[2017-04-08] MEDS ORDERED: DiphenhydrAMINE 12.5 mg/5 ml LIQ UD (5 ml) ONE (20:12)
[2017-04-08] MEDS ORDERED: DiphenhydrAMINE 50 mg/ml Inj ONE (20:13)
[2017-04-08 21:34] VITALS: BP 139/80; PULSE 82; RESP 18; TEMP 98.2
--- NOTE | 2017-04-09 09:18 | RAD ---
HISTORY: chest pain edema COMPARISON: 01/10/2017 TECHNIQUE: Chest PA and lateral FINDINGS: LUNGS: No active pulmonary disease. PLEURA: No significant pleural effusion identified. No pneumothorax apparent. CARDIOVASCULAR: Normal. OSSEOUS STRUCTURES: No significant abnormalities. VISUALIZED UPPER ABDOMEN: Normal. OTHER FINDINGS: None. IMPRESSION: No active disease.
--- NOTE | 2017-04-09 10:40 | CARD ---
APPROVED REPORT EKG Measurement Heart [id number] <Conclusion> Normal sinus rhythm with sinus arrhythmia Normal ECG
[2017-04-09 14:17] VITALS: O2SAT 100
== END 2017-04-08 21:35 | disposition home or self-care (01) ==
LOC: H.ER 17:29
DX: R07.89 Other chest pain (principal); I10 Essential (primary) hypertension; M79.7 Fibromyalgia; M06.9 Rheumatoid arthritis, unspecified; M85.80 Other specified disorders of bone density and structure, unspecified site; F31.9 Bipolar disorder, unspecified; F43.10 Post-traumatic stress disorder, unspecified; Z88.0 Allergy status to penicillin
CPT/HCPCS: 71020; 80053; 80324; 80345; 80346; 80349; 80353; 80358; 80361; 81025; 83735; 83880; 83992; 84100; 84443; 84484; 85025; 85378; 85610; 85730; 93005; 96374; 99283; J1200; J2765

== ENCOUNTER 2017-04-28 11:52 | Day surgery (SDC) | payer SELFPAY ==
[2017-04-28 12:22] VITALS: BMI 37.0
[2017-04-28] MEDS ORDERED: methylPREDNISolone Depo 80 mg/ml Inj ONE (12:55)
[2017-04-28] MEDS ORDERED: Bupivacaine HCl 0.5% PF (10 ml) Inj ONE (12:56)
[2017-04-28] MEDS ORDERED: Iohexol 300 10 ML ONE (12:56)
[2017-04-28] MEDS ORDERED: Lidocaine 1% 20 MG/2 ML PF AMP ONE (12:56)
[2017-04-28] MEDS ORDERED: Bupivacaine HCl 0.25% PF (10 ml) Inj ONE (14:11)
[2017-04-28] MEDS ORDERED: Midazolam 2 MG/2 ML VIAL ONE (14:16)
[2017-04-28] MEDS ORDERED: Propofol 10 mg/ml Inj (20 ML) ONE (14:20)
[2017-04-28] MEDS ORDERED: HYDROmorphone 0.5 mg/0.5 ml ISec IVP PRN (14:58)
[2017-04-28] MEDS: HYDROmorphone 0.5 mg/0.5 ml ISec IVP PRN ×2 (15:20→15:48)
[2017-04-28 15:33] VITALS: RESP 18
[2017-04-28 16:17] VITALS: TEMP 97.5
--- NOTE | 2017-04-28 17:02 | RAD ---
PROCEDURE: Intraoperative Fluoroscopy. HISTORY: PAIN MNGMT FINDINGS: Fluoroscopic assistance was provided employing 21.5 seconds of fluoro time. Three images submitted. Please refer to the operative report
[2017-04-28 17:44] VITALS: BP 130/80; PULSE 72; O2SAT 98
--- NOTE | 2017-04-29 02:18 | OP ---
PROCEDURE DATE: 04/28/2017 SURGEON: Dr. Salmeron. PREOPERATIVE DIAGNOSIS: Right hip trochanteric bursitis. POSTOPERATIVE DIAGNOSIS: Right hip trochanteric bursitis. PROCEDURE: Right trochanteric bursa injection under fluoroscopic guidance. COMPLICATIONS: None. ESTIMATED BLOOD LOSS: None. DESCRIPTION OF PROCEDURE: After informed consent was obtained, the patient was brought to the OR and placed on the table in supine position. All pressure points were padded, sedation was administered by anesthesia. The right hip was prepped with iodine x3 and draped in normal sterile fashion. 2 mL of 1% lidocaine was used for skin wheal using a 25-gauge needle. X-ray was used in the AP view to the identify right greater trochanter. A 22-gauge 3-1/2-inch spinal needle was advanced under AP view to contact the right greater trochanter. There was no paresthesia during placement of the needle. After negative aspiration for heme or CSF, 2 mL of Omnipaque 300 contrast dye was used to delineate the right trochanteric bursa. After negative aspiration for heme or CSF, 5 mL of 0.25% preservative-free Marcaine was injected. The patient had no paresthesias during the procedure. The patient was brought to stage 2 recovery room with bilateral lower extremity motor and sensory intact. Jono Salmeron MD [facility]
== END 2017-04-28 17:45 | disposition home or self-care (01) ==
LOC: H.OPSURG 11:52
PROVIDERS: ATTEND Anesthesiology Pain Medicine
DX: M70.61 Trochanteric bursitis, right hip (principal); G40.909 Epilepsy, unspecified, not intractable, without status epilepticus; I10 Essential (primary) hypertension; F41.8 Other specified anxiety disorders; M19.90 Unspecified osteoarthritis, unspecified site
CPT/HCPCS: 20611; J1170; J2250; J2704; J2765; J3010; Q9967

== ENCOUNTER 2017-05-06 15:05 | Emergency (ER) | payer SELFPAY ==
[2017-05-06 15:05] VITALS: BMI 37.0
[2017-05-06 15:17] VITALS: BP 124/71; PULSE 93; RESP 16; TEMP 98.2; O2SAT 100
--- NOTE | 2017-05-06 16:13 | ED PDOC ---
HPI: Female Pain Time Seen by Provider: 05/06/17 15:25 Chief Complaint (Nursing): Female Genitourinary Chief Complaint (Provider): UTI History Per: Patient Additional Complaint(s): Pt. is a 47 yo female,PMH of HTN, Fibromyalgia, Bipolar and Depression, presents to ED with complaints of increased frequency of urination and burning on urination x 4 days. Pt denies any vaginal discharge; however, is requesting STD check bc she is conceded her significant other might be cheating on her. No fever or chills. no nausea or vomiting. No abdominal pain or back pain Appointment with Mobile Application Tester won't be until . Past Medical History Reviewed: Historical Data, Nursing Documentation, Vital Signs Vital Signs: Last Vital Signs Temp 98.2 F 05/06/17 15:13 Pulse 93 H 05/06/17 15:13 Resp 16 05/06/17 15:13 BP 124/71 05/06/17 15:13 Pulse Ox 100 05/06/17 15:13 - Medical History PMH: Anxiety, Arthritis, Back Problems, Bipolar Disorder, Bronchitis, Depression , Fibromyalgia, HTN, Migraine, Post Traumatic Stress Disorder, Rheumatoid Arthritis, Seizures Denies: HIV, Pneumothorax, Chronic Kidney Disease, Sexually Transmitted Disease - Surgical History Surgical History: Appendectomy, Cholecystectomy, Tonsillectomy, (ALso Hysterectomy) - Family History Family History: States: Unknown Family Hx, Hypertension - Living Arrangements Living Arrangements: With Family - Social History Current smoker - smoking cessation education provided: No Alcohol: None Drugs: Denies - Immunization History Hx Tetanus Toxoid Vaccination: No Hx Influenza Vaccination: No Hx Pneumococcal Vaccination: No - Home Medications Home Medications: Ambulatory Orders Medication Instructions Recorded Divalproex [Depakote DR] 500 mg PO BID 04/08/17 Ibuprofen [Motrin Tab] 600 mg PO Q8 PRN #60 tab 04/08/17 Metoclopramide [Reglan] 1 tab PO TID PRN #30 tab 04/08/17 Prazosin HCL [Minipress] 5 mg PO HS 04/08/17 Quetiapine Fumarate [Seroquel] 400 mg PO HS 04/08/17 amLODIPine [Norvasc] 5 mg PO DAILY 04/08/17 Ciprofloxacin [Cipro] 500 mg PO BID #6 tab 05/06/17 Phenazopyridine HCl [Pyridium] 100 mg PO TID #6 tab 05/06/17 - Allergies Allergies/Adverse Reactions: Allergies Allergy/AdvReac Type Severity Reaction Status Date / Time Penicillins Allergy Severe SWELLING Verified 01/10/17 11:56 Review of Systems ROS Statement: Except As Marked, All Systems Reviewed And Found Negative Genitourinary Female: Positive for: Dysuria, Frequency Physical Exam - Reviewed Nursing Documentation Reviewed: Yes Vital Signs Reviewed: Yes - Physical Exam Appears: Positive for: Well, Non-toxic, No Acute Distress Head Exam: Positive for: ATRAUMATIC, NORMAL INSPECTION, NORMOCEPHALIC Skin: Positive for: Normal Color, Warm, DRY Eye Exam: Positive for: EOMI, Normal appearance, PERRL ENT: Positive for: Normal ENT Inspection Neck: Positive for: Normal, Painless ROM Cardiovascular/Chest: Positive for: Regular Rate, Rhythm Respiratory: Positive for: CNT, Normal Breath Sounds Gastrointestinal/Abdominal: Positive for: Normal Exam, Bowel Sounds, Soft Pelvic Exam: Positive for: External Exam Normal, Speculum Exam Normal, Bimanual Exam Normal. Negative for: No Cerv. Motion Tender, Cervicitis Back: Positive for: Normal Inspection Extremity: Positive for: Normal ROM Neurologic/Psych: Positive for: Alert, Oriented - ECG O2 Sat by Pulse Oximetry: 100 Medical Decision Making Medical Decision Making: GC/C cultures obtained and sent UA resulted (+) UTI Pt started on Cipro PO Disposition - Clinical Impression Clinical Impression: UTI (urinary tract infection) - Patient ED Disposition Is Patient to be Admitted: No - Disposition Disposition: Routine/Home Disposition Time: 17:59 Condition: STABLE Prescriptions: Ciprofloxacin [Cipro] 500 mg PO BID #6 tab Phenazopyridine HCl [Pyridium] 100 mg PO TID #6 tab Instructions: Urinary Tract Infection in Women (ED) Forms: [facility] ([place]) - POA Present On Arrival: None
[2017-05-06 16:58] LABS: RBC URINE 4 /hpf (0-3); URINE BACTERIA MOD (<OCC); URINE BILIRUBIN NEGATIVE (NEGATIVE); URINE BLOOD NEGATIVE (NEGATIVE); URINE COLOR YELLOW (YELLOW); URINE GLUCOSE (UA) NEG (Normal); URINE KETONE NEGATIVE (NEGATIVE); URINE LEUKOCYTE ESTERASE LARGE Leu/uL (Negative); URINE PROTEIN 30 mg/dL (NEGATIVE); URINE UROBILINOGEN 0.2-1.0 mg/dL (0.2-1.0); WBC URINE 152 /hpf (0-5)
== END 2017-05-06 18:04 | disposition home or self-care (01) ==
LOC: H.ER 15:05
DX: N39.0 Urinary tract infection, site not specified (principal); Z86.59 Personal history of other mental and behavioral disorders

== ENCOUNTER 2017-05-10 18:36 | Inpatient (IN) | payer MEDICAID, SELFPAY ==
[2017-05-10 18:36] VITALS: BMI 37.0
[2017-05-10] MEDS ORDERED: Sodium Chloride 0.9% 1,000 ML IV STA (19:42)
[2017-05-10 20:25] LABS: BASO # 0.1 K/uL (0.0-0.2); BASO % 0.9 % (0.0-2.0); EOS # 0.2 K/uL (0.0-0.7); EOS % 1.7 % (0.0-4.0); HEMATOCRIT 38.2 % (34.0-47.0); LYMPH # 1.9 K/uL (1.0-4.3); MEAN CELL VOLUME 91.6 fl (81.0-99.0); MEAN CORPUSCULAR HEMOGLOBIN 29.8 pg (27.0-31.0); MEAN CORPUSCULAR HGB CONC 32.5 g/dL (33.0-37.0); MONO # 0.7 K/uL (0.0-0.8); MONO % 8.2 % (0.0-10.0); NEUT # 6.2 K/uL (1.8-7.0); NEUT % 68.2 % (50.0-75.0); RED CELL DISTRIBUTION WIDTH 13.5 % (11.5-14.5); WHITE BLOOD COUNT 9.2 K/uL (4.8-10.8)
[2017-05-10 20:33] LABS: RBC URINE 5 /hpf (0-3); URINE BACTERIA RARE (<OCC); URINE BILIRUBIN NEGATIVE (NEGATIVE); URINE BLOOD NEGATIVE (NEGATIVE); URINE COLOR AMBER (YELLOW); URINE GLUCOSE (UA) NEG (Normal); URINE KETONE NEGATIVE (NEGATIVE); URINE LEUKOCYTE ESTERASE NEG Leu/uL (Negative); URINE PROTEIN NEGATIVE (NEGATIVE); WBC URINE 3 /hpf (0-5)
[2017-05-10 20:37] LABS: ALB/GLOB RATIO 1.5 (1.0-2.1); ALKALINE PHOSPHATASE 107 U/L (38-126); ALT/SGPT 30 U/L (9-52); AST/SGOT 30 U/L (14-36); BILIRUBIN,TOTAL 0.2 mg/dl (0.2-1.3); BLOOD UREA NITROGEN 18 mg/dl (7-17); CALCIUM 9.5 mg/dL (8.4-10.2); CARBON DIOXIDE 25 mmol/L (22-30); CHLORIDE 107 mmol/L (98-107); GFR AFRICAN-AMERICAN > 60; GLUCOSE,RANDOM 119 mg/dL (65-105); POTASSIUM 3.9 MMOL/L (3.6-5.0); SODIUM 145 mmol/l (132-148); TOTAL PROTEIN 7.1 G/DL (6.3-8.2)
--- NOTE | 2017-05-10 20:47 | ED PDOC ---
HPI: Female Pain Time Seen by Provider: 05/10/17 19:14 Chief Complaint (Nursing): Female Genitourinary Chief Complaint (Provider): Bilateral flank pain History Per: Patient History/Exam Limitations: no limitations Onset/Duration Of Symptoms: Days Current Symptoms Are (Timing): Still Present Quality Of Discomfort: "Pain" Associated Symptoms: Chills, Urinary Symptoms Additional Complaint(s): The patient is a 47yo female with past medical history of PTSD, depression, rheumatoid arthritis, recurrent UTI, hysterectomy, presents today for evaluation of bilateral flank pain with associated chills and dysuria. Patient reports she was seen in the ED on 05/06 for similar symptoms and was diagnosed with a UTI and discharged home with Cippro. Patient states she had a follow up call and was informed her urine culture sensitivity indicated infection was resistant to cippro so the patient was prescribed bactrim. Patient reports she has been taking bactrim for 2 days and her symptoms have progressively worsened. She reports chill and nausea but denies any fever or vomiting. She also denies chest pain, cough and shortness of breath. Patient offers no additional medical complaints. Past Medical History Reviewed: Historical Data, Nursing Documentation, Vital Signs Vital Signs: Last Vital Signs Temp 98.9 F 05/10/17 18:50 Pulse 107 H 05/10/17 18:50 Resp 16 05/10/17 18:50 BP 134/91 H 05/10/17 18:50 Pulse Ox 98 05/10/17 18:50 - Medical History PMH: Anxiety, Arthritis, Back Problems, Bipolar Disorder, Bronchitis, Depression , Fibromyalgia, HTN, Migraine, Post Traumatic Stress Disorder, Rheumatoid Arthritis, Seizures Denies: HIV, Pneumothorax, Chronic Kidney Disease, Sexually Transmitted Disease - Surgical History Surgical History: Appendectomy, Cholecystectomy, Tonsillectomy, (ALso Hysterectomy) - Family History Family History: States: Unknown Family Hx, Hypertension - Social History Current smoker - smoking cessation education provided: No Alcohol: None Drugs: Denies - Immunization History Hx Tetanus Toxoid Vaccination: No Hx Influenza Vaccination: No Hx Pneumococcal Vaccination: No - Home Medications Home Medications: Ambulatory Orders Medication Instructions Recorded Divalproex [Depakote DR] 500 mg PO BID 04/08/17 Ibuprofen [Motrin Tab] 600 mg PO Q8 PRN #60 tab 04/08/17 Metoclopramide [Reglan] 1 tab PO TID PRN #30 tab 04/08/17 Prazosin HCL [Minipress] 5 mg PO HS 04/08/17 Quetiapine Fumarate [Seroquel] 400 mg PO HS 04/08/17 amLODIPine [Norvasc] 5 mg PO DAILY 04/08/17 Ciprofloxacin [Cipro] 500 mg PO BID #6 tab 05/06/17 Phenazopyridine HCl [Pyridium] 100 mg PO TID #6 tab 05/06/17 - Allergies Allergies/Adverse Reactions: Allergies Allergy/AdvReac Type Severity Reaction Status Date / Time Penicillins Allergy Severe SWELLING Verified 01/10/17 11:56 Review of Systems ROS Statement: Except As Marked, All Systems Reviewed And Found Negative Constitutional: Positive for: Chills. Negative for: Fever Gastrointestinal: Positive for: Nausea, Other (bilateral flank pain). Negative for: Vomiting Genitourinary Female: Positive for: Dysuria Physical Exam - Reviewed Nursing Documentation Reviewed: Yes Vital Signs Reviewed: Yes - Physical Exam Appears: Positive for: Uncomfortable Head Exam: Positive for: ATRAUMATIC, NORMAL INSPECTION, NORMOCEPHALIC Skin: Positive for: Warm Neck: Positive for: Supple Cardiovascular/Chest: Positive for: Regular Rate, Rhythm Respiratory: Positive for: Normal Breath Sounds. Negative for: Respiratory Distress Gastrointestinal/Abdominal: Positive for: Soft, Tenderness (suprapubic tenderness) Back: Positive for: L CVA Tenderness, R CVA Tenderness Neurologic/Psych: Positive for: Alert, Oriented - Laboratory Results Result Diagrams: 05/10/17 20:20 05/10/17 20:20 - ECG O2 Sat by Pulse Oximetry: 98 (RA) Pulse Ox Interpretation: Normal - Progress ED Course And Treament: CT ABD 01/25/2014 12:29:23 AM FINDINGS: The spleen, gallbladder and pancreas appear grossly normal on this non-contrast study. The liver is decreased in attenuation consistent with fatty infiltration. No perinephric stranding. Questionable very minimal fullness of the right renal collecting system. Pelvic phleboliths.There is a 2 mm calcification along the posterior wall of the inferior urinary bladder just to the right of midline. It is difficult to determine whether it is actually intraluminal versus representing additional phlebolith (there is no fat plane interspersed between urinary bladder and cervical remnant at this level). Tiny stable 6 mm hyperdense left renal lesion, probable tiny complex cyst. There is a stable 1 cm left renal cyst. The bowel appears grossly normal. Appendectomy. Small ovarian follicles. The uterus has been surgically removed. IMPRESSION: Tiny calcification along the posterior inferior urinary bladder wall, possible recently passed calculi versus phlebolith as discussed above. Medical Decision Making Medical Decision Making: Time: 2013 Impression: 47yo female with clinical pyelonephritis in setting of recent resistant UTI Plan: -- IV fluids -- Rocephin 2gm IV -- Toradol 10 mg IV -- CT AP w/o contrast -- Labs Reassess Time: 2102 Patient to be admitted under Dr. Dooley to med/sug for pyelonephritis given outpatient treatment failure Scribe Attestation: Documented by Kristine Jones acting as a scribe for Allen Meraz MD. Provider Attestation: All medical record entries made by the Scribe were at my direction and personally dictated by me. I have reviewed the chart and agree that the record accurately reflects my personal performance of the history, physical exam, medical decision making, and the department course for this patient. I have also personally directed, reviewed, and agree with the discharge instructions and disposition. Disposition - Clinical Impression Clinical Impression: Pyelonephritis - Patient ED Disposition Is Patient to be Admitted: Yes Counseled Patient/Family Regarding: Studies Performed, Diagnosis - Disposition Disposition Time: 21:03 Condition: FAIR Handoff Comments: Case discussed with Dr. Kumar [facility] resident operator specialist communications. Patient will be admitted for further treatment and stabilization of pyelonephritis given that patient has failed outpatient treatment course.
[2017-05-10] MEDS ORDERED: cefTRIAXone 2 GM in Sodium Chloride 0.9% 100 ML IVPB STA (21:04)
--- NOTE | 2017-05-10 22:49 | CP.PCM.HP ---
History of Present Illness - History of Present Illness History of Present Illness: 47 y/o with a PMHx remarkable for HTN, seizures, migraines, PTSD, Anxiety , Fibromyalgia, osteoarthritis, Rheumatoid arthritis and recurrent UTIs presented to [facility] tonight complaining of worsening dysuria, frequency, suprapubic pain and back pain. Pt reports that her symptoms of dysuria and frequency began early this week, she was seen at the clinic and was given a course of PO Ciprofloxacin. Urine C&S was drawn and STI screen was negative and the pt was discharged. She took the Cipro for two days when the clinic called her saying her bacteria were resistant. On she was switched to PO Bactrim. She began the course immediately but did not notice any improvement in symptoms. On Friday night, she developed worsening suprapubic pain along with back pain, this caused her to come in. Pain is rated as 9/10 and constant, says she "felt broken in half". She reports she has intermittent nausea but no episodes of vomiting or diarrhea as well as subjective chills. Denies any new sexual partners or changes in practices. She denies any fever, dizziness/ lightheadedness, headache, changes in vision, CP/SOB/Palpitations, numbness/ tingling. ROS: all systems reviewed, found to be negative or as mentioned in above PMD: Dr. Anya Leung PMHx: Essential HTN, Seizures, OA, RA, Recurrent UTIs, extensive psych history Meds: as per med rec ALL: Penicillins (rash) PSurgHx: Hysterectomy, , Tonsillectomy, Appendectomy POBHx: , 1 LMP: not currently menstruating FamilyHx: noncontributory SocialHx: former ETOH/Tobacco/Cocaine abuser, sober since 2011, lives in [place] with boyfriend, unemployed. ED COURSE: Vitals on presentation: T: 98.9, HR: 107, BP: 134/91, RR: 16, POX: 98% RA LABS: CBC: 9.2>12.4/38.2<273 CMP: BUN: 18, otherwise unremarkable Lactic Acid: 1.1 UA: +Nitrates, Increased RBCs, Increased urobilinogen Imaging: CT ABD/PELVIS w/o contrast Given multiple doses of Toradol for pain, plus morphine Single dose of Rocephin Admitted to Med/Surg Present on Admission - Present on Admission Any Indicators Present on Admission: No Review of Systems - Review of Systems All systems: reviewed and no additional remarkable complaints except Past Patient History - Infectious Disease Hx of Infectious Diseases: None - Past Medical History & Family History Past Medical History?: Yes - Past Social History Smoking Status: Former Smoker Alcohol: None Drugs: Denies Home Situation {Lives}: With Family - CARDIAC Hx Hypertension: Yes - PULMONARY Hx Bronchitis: Yes - NEUROLOGICAL Hx Migraine: Yes Hx Seizures: Yes - HEENT Hx HEENT Problems: Yes Hx Glaucoma: Yes - RENAL Hx Chronic Kidney Disease: No - ENDOCRINE/METABOLIC Hx Endocrine Disorders: No Other/Comment: Kidney Cyst - HEMATOLOGICAL/ONCOLOGICAL Hx Human Immunodeficiency Virus (HIV): No - INTEGUMENTARY Hx Dermatological Problems: No - MUSCULOSKELETAL/RHEUMATOLOGICAL Hx Arthritis: Yes Hx Rheumatoid Arthritis: Yes - GASTROINTESTINAL Hx Gastrointestinal Disorders: Yes Hx Bowel Surgery: Yes Other/Comment: INTESTINAL ADHESIONS - GENITOURINARY/GYNECOLOGICAL Hx Sexually Transmitted Disorders: No - PSYCHIATRIC Hx Anxiety: Yes Hx Bipolar Disorder: Yes Hx Depression: Yes Hx Post Traumatic Stress Disorder: Yes - SURGICAL HISTORY Hx Appendectomy: Yes Hx Cholecystectomy: Yes Hx Tonsillectomy: Yes - ANESTHESIA Hx Anesthesia: Yes Hx Anesthesia Reactions: No Hx Malignant Hyperthermia: No Meds Allergies/Adverse Reactions: Allergies Allergy/AdvReac Type Severity Reaction Status Date / Time Penicillins Allergy Severe SWELLING Verified 01/10/17 11:56 Physical Exam - Constitutional Appears: Non-toxic, No Acute Distress - Head Exam Head Exam: ATRAUMATIC, NORMOCEPHALIC - Eye Exam Eye Exam: EOMI. absent: Conjunctival injection, Scleral icterus Pupil Exam: PERRL - ENT Exam ENT Exam: Mucous Membranes Moist - Neck Exam Neck exam: Positive for: Full Rom, Thyromegaly. Negative for: Lymphadenopathy, Tenderness - Respiratory Exam Respiratory Exam: Clear to Auscultation Bilateral, NORMAL BREATHING PATTERN. absent: Rales, Rhonchi, Wheezes - Cardiovascular Exam Cardiovascular Exam: Tachycardia, REGULAR RHYTHM, RRR, +S1, +S2. absent: Diastolic murmur, Gallop, JVD, Rubs, Systolic Murmur - GI/Abdominal Exam GI & Abdominal Exam: Normal Bowel Sounds, Soft, Tenderness (tenderness located suprapubically). absent: Firm, Guarding, Rebound, Rigid - Extremities Exam Extremities exam: Positive for: normal capillary refill, normal inspection, pedal pulses present. Negative for: calf tenderness, pedal edema, tenderness - Back Exam Back exam: CVA tenderness (L), CVA tenderness (R). absent: rash noted - Neurological Exam Neurological exam: Alert, CN II-XII Intact, Oriented x3 - Psychiatric Exam Psychiatric exam: Normal Affect, Normal Mood - Skin Skin Exam: Dry, Intact, Normal Color, Warm Results - Vital Signs Recent Vital Signs: Last Vital Signs Temp 98 F 05/10/17 22:29 Pulse 98 H 05/10/17 22:29 Resp 20 05/10/17 22:29 BP 134/85 05/10/17 22:29 Pulse Ox 99 05/10/17 22:29 - Labs Result Diagrams: 05/10/17 20:20 05/10/17 20:20 Labs: Laboratory Results - last 24 hr 05/10/17 05/10/17 05/10/17 20:20 20:20 20:20 WBC 9.2 RBC 4.17 Hgb 12.4 Hct 38.2 MCV 91.6 MCH 29.8 MCHC 32.5 L RDW 13.5 Plt Count 273 MPV 9.0 Neut % (Auto) 68.2 Lymph % (Auto) 21.0 [place] % (Auto) 8.2 Eos % (Auto) 1.7 Baso % (Auto) 0.9 Neut # 6.2 Lymph # 1.9 [place] # 0.7 Eos # 0.2 Baso # 0.1 Sodium 145 Potassium 3.9 Chloride 107 Carbon Dioxide 25 Anion Gap 17 BUN 18 H Creatinine 0.7 Est GFR ( Amer) > 60 Est GFR (Non-Af Amer) > 60 Random Glucose 119 H Lactic Acid Calcium 9.5 Total Bilirubin 0.2 AST 30 ALT 30 Alkaline Phosphatase 107 Total Protein 7.1 Albumin 4.2 Globulin 2.9 Albumin/Globulin Ratio 1.5 Urine Color Neli Urine Clarity Clear Urine pH 5.0 Ur Specific Bath 1.020 Urine Protein Negative Urine Glucose (UA) Neg Urine Ketones Negative Urine Blood Negative Urine Nitrate Positive H Urine Bilirubin Negative Urine Urobilinogen 4.0 H Ur Leukocyte Esterase Neg Urine RBC (Auto) 5 H Urine Microscopic WBC 3 Ur Squamous Epith Cells < 1 Urine Bacteria Rare 05/10/17 20:20 WBC RBC Hgb Hct MCV MCH MCHC RDW Plt Count MPV Neut % (Auto) Lymph % (Auto) [place] % (Auto) Eos % (Auto) Baso % (Auto) Neut # Lymph # [place] # Eos # Baso # Sodium Potassium Chloride Carbon Dioxide Anion Gap BUN Creatinine Est GFR ( Amer) Est GFR (Non-Af Amer) Random Glucose Lactic Acid 1.1 Calcium Total Bilirubin AST ALT Alkaline Phosphatase Total Protein Albumin Globulin Albumin/Globulin Ratio Urine Color Urine Clarity Urine pH Ur Specific [place] Urine Protein Urine Glucose (UA) Urine Ketones Urine Blood Urine Nitrate Urine Bilirubin Urine Urobilinogen Ur Leukocyte Esterase Urine RBC (Auto) Urine Microscopic WBC Ur Squamous Epith Cells Urine Bacteria Assessment & Plan (1) Acute pyelonephritis Assessment and Plan: afebrile, vitals remarkable for tachycardia, otherwise stable no white count appreciated on CBC 1 gm of IV Rocephin given in the ED c/w 5mg/kg IV Gentamicin QD IV Fluid hydration with normal saline @ 125mls/hr Pain management: toradol 10mg/morphine 2mg PRN 650mg Tylenol PRN for fever heart healthy diet monitor vitals, follow up am labs (CBC/CMP) f/u CT Abd/pelvis report Status: Acute (2) Hypertension Assessment and Plan: well controlled c/w home med, amlodipine 5mg QD Status: Chronic (3) Prophylactic measure Assessment and Plan: SCDs prn, ambulation Status: Acute
--- NOTE | 2017-05-10 22:56 | CT ---
EXAM: CT Abdomen and Pelvis Without Intravenous Contrast EXAM DATE/TIME: 05/10/2017 8:14 PM CLINICAL HISTORY: 47 years old, female; Pain; Abdominal pain; Localized; Lower; Prior surgery; Surgery date: 6+ months; Surgery type: Appendectomy. Hysterectomy; Patient HX: Rlq llq pain. HX bipolar HTN lbp; Additional info: Renal colic TECHNIQUE: Axial computed tomography images of the abdomen and pelvis without intravenous contrast. All CT scans at this facility use one or more dose reduction techniques, viz.: automated exposure control; ma/kV adjustment per patient size (including targeted exams where dose is matched to indication; i.e. head); or iterative reconstruction technique. Coronal and sagittal reformatted images were created and reviewed. COMPARISON: CT ABD 01/25/2014 12:29:23 AM FINDINGS: The spleen, gallbladder and pancreas appear grossly normal on this non-contrast study. The liver is decreased in attenuation consistent with fatty infiltration. No perinephric stranding. Questionable very minimal fullness of the right renal collecting system. Pelvic phleboliths.There is a 2 mm calcification along the posterior wall of the inferior urinary bladder just to the right of midline. It is difficult to determine whether it is actually intraluminal versus representing additional phlebolith (there is no fat plane interspersed between urinary bladder and cervical remnant at this level). Tiny stable 6 mm hyperdense left renal lesion, probable tiny complex cyst. There is a stable 1 cm left renal cyst. The bowel appears grossly normal. Appendectomy. Small ovarian follicles. The uterus has been surgically removed. IMPRESSION: Tiny calcification along the posterior inferior urinary bladder wall, possible recently passed calculi versus phlebolith as discussed above.
[2017-05-10] MEDS ORDERED: PRAZOSIN HCL 5 MG PO SCH (23:45)
[2017-05-11] MEDS: Divalproex 500 mg DR(BID formulation) PO SCH ×3 (00:32→16:55)
[2017-05-11] MEDS: Sodium Chloride 0.9% 1,000 ML IV SCH ×3 (00:38→23:11)
[2017-05-11] MEDS ORDERED: Influenza Vaccine 18yr & older 0.5 ML/45 MCG SYR IM ONE (08:00)
[2017-05-11 08:17] LABS: BASO # 0.1 K/uL (0.0-0.2); BASO % 0.8 % (0.0-2.0); EOS # 0.2 K/uL (0.0-0.7); EOS % 2.3 % (0.0-4.0); HEMATOCRIT 35.8 % (34.0-47.0); LYMPH # 2.1 K/uL (1.0-4.3); LYMPH % 27.6 % (20.0-40.0); MEAN CELL VOLUME 91.7 fl (81.0-99.0); MEAN CORPUSCULAR HEMOGLOBIN 29.9 pg (27.0-31.0); MEAN CORPUSCULAR HGB CONC 32.6 g/dL (33.0-37.0); MONO # 0.7 K/uL (0.0-0.8); MONO % 8.8 % (0.0-10.0); NEUT # 4.7 K/uL (1.8-7.0); NEUT % 60.5 % (50.0-75.0); RED CELL DISTRIBUTION WIDTH 13.7 % (11.5-14.5); WHITE BLOOD COUNT 7.7 K/uL (4.8-10.8)
[2017-05-11 08:28] LABS: ALB/GLOB RATIO 1.5 (1.0-2.1); ALKALINE PHOSPHATASE 104 U/L (38-126); ALT/SGPT 35 U/L (9-52); AST/SGOT 27 U/L (14-36); BILIRUBIN,TOTAL 0.3 mg/dl (0.2-1.3); BLOOD UREA NITROGEN 12 mg/dl (7-17); CALCIUM 8.9 mg/dL (8.4-10.2); CARBON DIOXIDE 21 mmol/L (22-30); CHLORIDE 106 mmol/L (98-107); GFR AFRICAN-AMERICAN > 60; GLUCOSE,RANDOM 116 mg/dL (65-105); POTASSIUM 3.7 MMOL/L (3.6-5.0); SODIUM 141 mmol/l (132-148); TOTAL PROTEIN 6.4 G/DL (6.3-8.2)
[2017-05-11] MEDS ORDERED: cefTRIAXone 2 GM in Sodium Chloride 0.9% 100 ML IVPB SCH (09:00)
[2017-05-11] MEDS ORDERED: Gentamicin 80 mg/2mL Inj. IVPB SCH (09:00)
--- NOTE | 2017-05-11 09:34 | CP.PCM.PN ---
Subjective - Date & Time of Evaluation Date of Evaluation: 05/11/17 Time of Evaluation: 09:33 Objective - Vital Signs/Intake and Output Vital Signs (last 24 hours): Temp Pulse Resp BP Pulse Ox 981 F H 85 20 128/85 95 05/11/17 08:42 05/11/17 08:42 05/11/17 08:42 05/11/17 08:42 05/11/17 08:42 - Medications Medications: Current Medications Acetaminophen (Tylenol 325mg Tab) 650 mg PO Q6 PRN PRN Reason: Fever >100.4 F Amlodipine Besylate (Norvasc) 5 mg PO DAILY [facility] Last Admin: 05/11/17 08:39 Dose: 5 mg Divalproex Sodium (Depakote Dr(*Bid*)) 500 mg PO BID [facility] Last Admin: 05/11/17 08:33 Dose: 500 mg Sodium Chloride (Sodium Chloride 0.9%) 1,000 mls @ 125 mls/hr IV .Q8H [facility] Stop: 05/11/17 23:10 Last Admin: 05/11/17 08:45 Dose: 125 mls/hr Gentamicin Sulfate 500 mg/ (Sodium Chloride) 262.5 mls @ 131.25 mls/hr IVPB DAILY [facility] Ketorolac Tromethamine (Toradol) 10 mg IVP Q6 PRN PRN Reason: Pain, moderate (4-7) Last Admin: 05/11/17 00:06 Dose: 10 mg Morphine Sulfate (Morphine) 2 mg IVP Q6 PRN PRN Reason: Pain, severe (8-10) Last Admin: 05/11/17 02:53 Dose: 2 mg Prazosin HCl (Minipress) 5 mg PO HS [facility] Last Admin: 05/11/17 00:34 Dose: 5 mg Quetiapine Fumarate (Seroquel) 400 mg PO HS [facility] Last Admin: 05/11/17 00:32 Dose: 400 mg - Labs Labs: 05/11/17 07:00 05/11/17 07:00
[2017-05-11] MEDS: Gentamicin 500 MG in Sodium Chloride 0.9% 250 ML IVPB SCH (09:41)
--- NOTE | 2017-05-11 10:03 | CP.PCM.PN ---
Subjective - Date & Time of Evaluation Date of Evaluation: 05/11/17 Time of Evaluation: 09:30 - Subjective Subjective: Patient seen and examined at bedside this AM. Pt reports pain in suprapubic area and B/L lower back. States pain was bothering her with sleep. Reports mild nausea after having breakfast but denies vomiting. Denies fever, chills, dizziness, chest pain, dyspnea or wheezing. denies calf pain. Tolerating PO food and fluids. Objective - Vital Signs/Intake and Output Vital Signs (last 24 hours): Temp Pulse Resp BP Pulse Ox 981 F H 85 20 128/85 95 05/11/17 08:42 05/11/17 08:42 05/11/17 08:42 05/11/17 08:42 05/11/17 08:42 - Medications Medications: Current Medications Acetaminophen (Tylenol 325mg Tab) 650 mg PO Q6 PRN PRN Reason: Fever >100.4 F Amlodipine Besylate (Norvasc) 5 mg PO DAILY [facility] Last Admin: 05/11/17 08:39 Dose: 5 mg Divalproex Sodium (Depakote Dr(*Bid*)) 500 mg PO BID [facility] Last Admin: 05/11/17 08:33 Dose: 500 mg Sodium Chloride (Sodium Chloride 0.9%) 1,000 mls @ 125 mls/hr IV .Q8H [facility] Stop: 05/11/17 23:10 Last Admin: 05/11/17 08:45 Dose: 125 mls/hr Gentamicin Sulfate 500 mg/ (Sodium Chloride) 262.5 mls @ 131.25 mls/hr IVPB DAILY [facility] Last Admin: 05/11/17 09:41 Dose: 131.25 mls/hr Ketorolac Tromethamine (Toradol) 10 mg IVP Q6 PRN PRN Reason: Pain, moderate (4-7) Last Admin: 05/11/17 00:06 Dose: 10 mg Morphine Sulfate (Morphine) 2 mg IVP Q6 PRN PRN Reason: Pain, severe (8-10) Last Admin: 05/11/17 02:53 Dose: 2 mg Prazosin HCl (Minipress) [address] [facility] Last Admin: 05/11/17 00:34 Dose: 5 mg Quetiapine Fumarate (Seroquel) [address] [facility] Last Admin: 05/11/17 00:32 Dose: 400 mg - Labs Labs: 05/11/17 07:00 05/11/17 07:00 - Constitutional Appears: Well, No Acute Distress - Head Exam Head Exam: NORMAL INSPECTION - Eye Exam Eye Exam: Normal appearance - ENT Exam ENT Exam: Mucous Membranes Moist - Neck Exam Neck Exam: Normal Inspection - Respiratory Exam Respiratory Exam: Clear to Ausculation Bilateral. absent: Rales, Rhonchi, Wheezes - Cardiovascular Exam Cardiovascular Exam: REGULAR RHYTHM, RRR, +S1, +S2 - GI/Abdominal Exam GI & Abdominal Exam: Soft, Normal Bowel Sounds Additional comments: has suprapubic tenderness, no guarding or rebound tenderness. - Extremities Exam Extremities Exam: Normal Capillary Refill, Normal Inspection. absent: Calf Tenderness, Pedal Edema - Back Exam Back Exam: CVA tenderness (L), CVA tenderness (R) Additional comments: mild - Neurological Exam Neurological Exam: Alert, Awake, Oriented x3 - Psychiatric Exam Psychiatric exam: Normal Affect, Normal Mood Assessment and Plan - Assessment and Plan (Free Text) Assessment: Assessment and plan: 1. Acute pyelonephritis -afebrile, vitals WNL. -no white count appreciated on CBC -1 gm of IV Rocephin given in the ED -c/w 5mg/kg IV Gentamicin QD -IV Fluid hydration with normal saline @ 125mls/hr -Pain management: toradol 30mg/morphine 2mg PRN -650mg Tylenol PRN for fever CT Abd/pelvis report: tiny calcification along the posterior inferior urinary bladder wall, possible recent passed calculi vs. phlebolith. (2) Hypertension well controlled c/w home med, amlodipine 5mg QD (3) Prophylactic measure SCDs prn, ambulation Diet: heart healthy diet
[2017-05-12] MEDS: Sodium Chloride 0.9% 1,000 ML IV SCH ×3 (00:26→19:00)
[2017-05-12 07:00] LABS: ALB/GLOB RATIO 1.4 (1.0-2.1); ALKALINE PHOSPHATASE 97 U/L (38-126); ALT/SGPT 30 U/L (9-52); AST/SGOT 26 U/L (14-36); BILIRUBIN,TOTAL 0.3 mg/dl (0.2-1.3); BLOOD UREA NITROGEN 11 mg/dl (7-17); CALCIUM 8.9 mg/dL (8.4-10.2); CARBON DIOXIDE 24 mmol/L (22-30); CHLORIDE 108 mmol/L (98-107); GFR AFRICAN-AMERICAN > 60; GLUCOSE,RANDOM 99 mg/dL (65-105); POTASSIUM 4.1 MMOL/L (3.6-5.0); SODIUM 141 mmol/l (132-148); TOTAL PROTEIN 6.2 G/DL (6.3-8.2)
[2017-05-12] MEDS: Divalproex 500 mg DR(BID formulation) PO SCH ×2 (09:08→16:18)
[2017-05-12] MEDS: Gentamicin 500 MG in Sodium Chloride 0.9% 250 ML IVPB SCH (09:16)
--- NOTE | 2017-05-12 09:56 | CP.PCM.PN ---
Subjective - Date & Time of Evaluation Date of Evaluation: 05/12/17 Time of Evaluation: 07:40 - Subjective Subjective: Patient seen and examined at bedside this AM. Still reports mild pain in suprapubic area and B/L lower back. States she had trouble falling a sleep but eventually slept last night. Denies nausea, vomiting, fever, chills, hematuria, dizziness, chest pain, dyspnea or wheezing. denies calf pain. Tolerating PO food and fluids. has normal BM and voiding. Objective - Vital Signs/Intake and Output Vital Signs (last 24 hours): Temp Pulse Resp BP Pulse Ox 98.2 F 73 18 129/77 93 L 05/12/17 08:29 05/12/17 09:08 05/12/17 08:29 05/12/17 09:08 05/12/17 08:29 - Medications Medications: Current Medications Acetaminophen (Tylenol 325mg Tab) 650 mg PO Q6 PRN PRN Reason: Fever >100.4 F Amlodipine Besylate (Norvasc) 5 mg PO DAILY [facility] Last Admin: 05/12/17 09:08 Dose: 5 mg Divalproex Sodium (Depakote Dr(*Bid*)) 500 mg PO BID [facility] Last Admin: 05/12/17 09:08 Dose: 500 mg Gentamicin Sulfate 500 mg/ (Sodium Chloride) 262.5 mls @ 131.25 mls/hr IVPB DAILY [facility] Last Admin: 05/12/17 09:16 Dose: 131.25 mls/hr Sodium Chloride (Sodium Chloride 0.9%) 1,000 mls @ 125 mls/hr IV .Q8H [facility] Stop: 05/12/17 23:32 Last Admin: 05/12/17 07:09 Dose: 125 mls/hr Ketorolac Tromethamine (Toradol) 15 mg IVP Q4 PRN PRN Reason: Pain, moderate (4-7) Last Admin: 05/11/17 18:08 Dose: 15 mg Morphine Sulfate (Morphine) 2 mg IVP Q6 PRN PRN Reason: Pain, severe (8-10) Last Admin: 05/12/17 09:14 Dose: 2 mg Prazosin HCl (Minipress) 5 mg PO HS [facility] Last Admin: 05/11/17 21:11 Dose: 5 mg Quetiapine Fumarate (Seroquel) 400 mg PO HS [facility] Last Admin: 05/11/17 21:11 Dose: 400 mg - Labs Labs: 05/11/17 07:00 05/12/17 06:30 - Constitutional Appears: Non-toxic, No Acute Distress - Head Exam Head Exam: ATRAUMATIC, NORMAL INSPECTION, NORMOCEPHALIC - Eye Exam Eye Exam: Normal appearance - ENT Exam ENT Exam: Mucous Membranes Moist - Neck Exam Neck Exam: Normal Inspection - Respiratory Exam Respiratory Exam: Clear to Ausculation Bilateral. absent: Rales, Rhonchi, Wheezes - Cardiovascular Exam Cardiovascular Exam: REGULAR RHYTHM, RRR, +S1, +S2 - GI/Abdominal Exam GI & Abdominal Exam: Soft, Normal Bowel Sounds Additional comments: has suprapubic tenderness, no guarding or rebound tenderness. - Neurological Exam Neurological Exam: Alert, Awake, Oriented x3 - Psychiatric Exam Psychiatric exam: Normal Affect, Normal Mood Assessment and Plan - Assessment and Plan (Free Text) Assessment: Assessment and plan: 1. Acute pyelonephritis -afebrile, vitals WNL. -no white count appreciated on CBC -1 gm of IV Rocephin given in the ED -c/w 5mg/kg IV Gentamicin QD -IV Fluid hydration with normal saline @ 125mls/hr -Pain management: toradol 30mg/morphine 2mg PRN -650mg Tylenol PRN for fever -CT Abd/pelvis report: tiny calcification along the posterior inferior urinary bladder wall, possible recent passed calculi vs. phlebolith. -F/U ID consult -F/U B/L renal US -Blood cx: no growth after 24hrs. (2) Hypertension well controlled c/w home med, amlodipine 5mg QD (3) Prophylactic measure SCDs prn, ambulation Diet: heart healthy diet
--- NOTE | 2017-05-12 11:36 | CP.PCM.CON ---
History of Present Illness - History of Present Illness History of Present Illness: Infectious Disease Consult Note- Asked to see this patient at the request of family practice team for UTI. HPI- Patient is a pleasant 47 year old female with PMH of HTN, seisures, fibromyalgia , nephrolithiasis and previous UTI's who originally presented to ED last week with c/o urinary urgerncy and dyusre and she was d/c home on pyridium and cipro by the ED as per pt. report and she states she took the meds for 2 days and then she was called and told that her UTI was resistant to cipro and that bactrim was called in by the ED doc to her pharmacy and she was instructed to take that. Pt. states she took the bactrim for few days but her symptoms were not resolved and her urinary urgency increased and she felt chills and hence cam eback to hospital for further evaluation and treatment. She also c/o pain in her left flank and some nausea . denies any fever. states her urine is also malodorous. PMHx: Essential HTN, Seizures, OA, RA, Recurrent UTIs, extensive psych history Meds: as per med rec ALL: Penicillins (rash) PSurgHx: Hysterectomy, , Tonsillectomy, Appendectomy POBHx: , 1 LMP: not currently menstruating FamilyHx: noncontributory SocialHx: former ETOH/Tobacco/Cocaine abuser, sober since 2011, lives in [place] with boyfriend, unemployed. Review of Systems - Review of Systems Review of Systems: ROS- denies any fever but had chills at home, denies any [place], denies any cough, denies any sob, denies any chest pain, + left flank and lower abd/pelvic pressure pain, + dysurea and + urinary urgency,denies any diarrhea denies any recent travel Past Patient History - Infectious Disease Hx of Infectious Diseases: None - Past Medical History & Family History Past Medical History?: Yes - Past Social History Alcohol: None Drugs: Denies - CARDIAC Hx Hypertension: Yes - PULMONARY Hx Bronchitis: Yes - NEUROLOGICAL Hx Migraine: Yes Hx Seizures: Yes - HEENT Hx HEENT Problems: Yes Hx Glaucoma: Yes - RENAL Hx Chronic Kidney Disease: No - ENDOCRINE/METABOLIC Hx Endocrine Disorders: No Other/Comment: Kidney Cyst - HEMATOLOGICAL/ONCOLOGICAL Hx Blood Disorders: No - INTEGUMENTARY Hx Dermatological Problems: No - MUSCULOSKELETAL/RHEUMATOLOGICAL Hx Arthritis: Yes Hx Rheumatoid Arthritis: Yes - GASTROINTESTINAL Hx Gastrointestinal Disorders: Yes Hx Bowel Surgery: Yes Other/Comment: INTESTINAL ADHESIONS - GENITOURINARY/GYNECOLOGICAL Hx Sexually Transmitted Disorders: No - PSYCHIATRIC Hx Anxiety: Yes Hx Bipolar Disorder: Yes Hx Depression: Yes Hx Post Traumatic Stress Disorder: Yes - SURGICAL HISTORY Hx Appendectomy: Yes Hx Cholecystectomy: Yes Hx Tonsillectomy: Yes - ANESTHESIA Hx Anesthesia: Yes Hx Anesthesia Reactions: No Hx Malignant Hyperthermia: No Meds Allergies/Adverse Reactions: Allergies Allergy/AdvReac Type Severity Reaction Status Date / Time Penicillins Allergy Severe SWELLING Verified 01/10/17 11:56 - Medications Medications: Current Medications Acetaminophen (Tylenol 325mg Tab) 650 mg PO Q6 PRN PRN Reason: Fever >100.4 F Amlodipine Besylate (Norvasc) 5 mg PO DAILY [facility] Last Admin: 05/12/17 09:08 Dose: 5 mg Divalproex Sodium (Depakote Dr(*Bid*)) 500 mg PO BID [facility] Last Admin: 05/12/17 09:08 Dose: 500 mg Gentamicin Sulfate 500 mg/ (Sodium Chloride) 262.5 mls @ 131.25 mls/hr IVPB DAILY [facility] Last Admin: 05/12/17 09:16 Dose: 131.25 mls/hr Sodium Chloride (Sodium Chloride 0.9%) 1,000 mls @ 125 mls/hr IV .Q8H [facility] Stop: 05/12/17 23:32 Last Admin: 05/12/17 07:09 Dose: 125 mls/hr Ketorolac Tromethamine (Toradol) 15 mg IVP Q4 PRN PRN Reason: Pain, moderate (4-7) Last Admin: 05/11/17 18:08 Dose: 15 mg Morphine Sulfate (Morphine) 2 mg IVP Q6 PRN PRN Reason: Pain, severe (8-10) Last Admin: 05/12/17 09:14 Dose: 2 mg Prazosin HCl (Minipress) 5 mg PO HS [facility] Last Admin: 05/11/17 21:11 Dose: 5 mg Quetiapine Fumarate (Seroquel) 400 mg PO HS [facility] Last Admin: 05/11/17 21:11 Dose: 400 mg Zolpidem Tartrate (Ambien) 5 mg PO HS PRN PRN Reason: Insomnia Physical Exam - Constitutional Appears: No Acute Distress - Head Exam Head Exam: ATRAUMATIC - Eye Exam Eye Exam: EOMI, PERRL - ENT Exam ENT Exam: Normal Oropharynx - Neck Exam Neck exam: Positive for: Full Rom - Respiratory Exam Respiratory Exam: Clear to Auscultation Bilateral, NORMAL BREATHING PATTERN - Cardiovascular Exam Cardiovascular Exam: RRR, +S1, +S2 - GI/Abdominal Exam GI & Abdominal Exam: Normal Bowel Sounds, Soft Additional comments: ND, Minimal tenderness with palpation of the lower abd region and + left CVA tenderness No guarding, no rebound - Extremities Exam Extremities exam: Positive for: normal inspection - Neurological Exam Neurological exam: Alert, Oriented x3 Results - Vital Signs Recent Vital Signs: Last Vital Signs Temp 98.2 F 05/12/17 08:29 Pulse 73 05/12/17 09:08 Resp 18 05/12/17 08:29 BP 129/77 05/12/17 09:08 Pulse Ox 93 L 05/12/17 08:29 - Labs Result Diagrams: 05/11/17 07:00 05/12/17 06:30 Labs: Laboratory Results - last 24 hr 05/12/17 06:30 Sodium 141 Potassium 4.1 Chloride 108 H Carbon Dioxide 24 Anion Gap 13 BUN 11 Creatinine 0.6 L Est GFR ( Amer) > 60 Est GFR (Non-Af Amer) > 60 Random Glucose 99 Calcium 8.9 Total Bilirubin 0.3 AST 26 ALT 30 Alkaline Phosphatase 97 Total Protein 6.2 L Albumin 3.6 Globulin 2.6 Albumin/Globulin Ratio 1.4 Laboratory Results - last 72 hr 05/10/17 05/10/17 05/10/17 20:20 20:20 20:20 WBC 9.2 RBC 4.17 Hgb 12.4 Hct 38.2 MCV 91.6 MCH 29.8 MCHC 32.5 L RDW 13.5 Plt Count 273 MPV 9.0 Neut % (Auto) 68.2 Lymph % (Auto) 21.0 Mcduffie % (Auto) 8.2 Eos % (Auto) 1.7 Baso % (Auto) 0.9 Neut # 6.2 Lymph # 1.9 Mcduffie # 0.7 Eos # 0.2 Baso # 0.1 Sodium 145 Potassium 3.9 Chloride 107 Carbon Dioxide 25 Anion Gap 17 BUN 18 H Creatinine 0.7 Est GFR ( Amer) > 60 Est GFR (Non-Af Amer) > 60 Random Glucose 119 H Lactic Acid Calcium 9.5 Total Bilirubin 0.2 AST 30 ALT 30 Alkaline Phosphatase 107 Total Protein 7.1 Albumin 4.2 Globulin 2.9 Albumin/Globulin Ratio 1.5 Urine Color Neli Urine Clarity Clear Urine pH 5.0 Ur Specific Horace 1.020 Urine Protein Negative Urine Glucose (UA) Neg Urine Ketones Negative Urine Blood Negative Urine Nitrate Positive H Urine Bilirubin Negative Urine Urobilinogen 4.0 H Ur Leukocyte Esterase Neg Urine RBC (Auto) 5 H Urine Microscopic WBC 3 Ur Squamous Epith Cells < 1 Urine Bacteria Rare 05/10/17 05/11/17 05/11/17 20:20 07:00 07:00 WBC 7.7 RBC 3.90 Hgb 11.7 L Hct 35.8 MCV 91.7 MCH 29.9 MCHC 32.6 L RDW 13.7 Plt Count 256 MPV 9.0 Neut % (Auto) 60.5 Lymph % (Auto) 27.6 Mcduffie % (Auto) 8.8 Eos % (Auto) 2.3 Baso % (Auto) 0.8 Neut # 4.7 Lymph # 2.1 Mcduffie # 0.7 Eos # 0.2 Baso # 0.1 Sodium 141 Potassium 3.7 Chloride 106 Carbon Dioxide 21 L Anion Gap 18 BUN 12 Creatinine 0.6 L Est GFR ( Amer) > 60 Est GFR (Non-Af Amer) > 60 Random Glucose 116 H Lactic Acid 1.1 Calcium 8.9 Total Bilirubin 0.3 AST 27 ALT 35 Alkaline Phosphatase 104 Total Protein 6.4 Albumin 3.8 Globulin 2.6 Albumin/Globulin Ratio 1.5 Urine Color Urine Clarity Urine pH Ur Specific Horace Urine Protein Urine Glucose (UA) Urine Ketones Urine Blood Urine Nitrate Urine Bilirubin Urine Urobilinogen Ur Leukocyte Esterase Urine RBC (Auto) Urine Microscopic WBC Ur Squamous Epith Cells Urine Bacteria 05/12/17 06:30 WBC RBC Hgb Hct MCV MCH MCHC RDW Plt Count MPV Neut % (Auto) Lymph % (Auto) Mcduffie % (Auto) Eos % (Auto) Baso % (Auto) Neut # Lymph # Mcduffie # Eos # Baso # Sodium 141 Potassium 4.1 Chloride 108 H Carbon Dioxide 24 Anion Gap 13 BUN 11 Creatinine 0.6 L Est GFR ( Amer) > 60 Est GFR (Non-Af Amer) > 60 Random Glucose 99 Lactic Acid Calcium 8.9 Total Bilirubin 0.3 AST 26 ALT 30 Alkaline Phosphatase 97 Total Protein 6.2 L Albumin 3.6 Globulin 2.6 Albumin/Globulin Ratio 1.4 Urine Color Urine Clarity Urine pH Ur Specific Horace Urine Protein Urine Glucose (UA) Urine Ketones Urine Blood Urine Nitrate Urine Bilirubin Urine Urobilinogen Ur Leukocyte Esterase Urine RBC (Auto) Urine Microscopic WBC Ur Squamous Epith Cells Urine Bacteria Microbiology 05/10/17 20:20 Urine Urine Culture - Final No Growth (<1,000 CFU/ML) 05/10/17 22:30 Blood Blood Culture - Preliminary NO GROWTH AFTER 24 HOURS 05/10/17 20:15 Blood Blood Culture - Preliminary NO GROWTH AFTER 24 HOURS Microbiology 05/06/17 16:20 Urine,Clean Catch Urine Culture - Final Escherichia Coli 02/24/17 18:29 Urine,Clean Catch Urine Culture - Final No Growth (<1,000 CFU/ML) 01/23/17 14:29 Urine,Clean Catch Urine Culture - Final No Growth (<1,000 CFU/ML) 01/10/17 13:20 Urine,Clean Catch Urine Culture - Final Escherichia Coli Accession No. : [id number] Patient Name / ID : VENU OLIVEIRA / [id number] Exam Date : 05/10/2017 21:46:39 ( Approved ) Study Comment : Sex / Age : F / 47Y Creator : Jayla Hurtado Dictator : Delivery Professional : Armature Tester : Jayla Hurtado Approver2 : Report Date : 05/10/2017 22:55:00 My Comment : [facility] Division of Radiology [address] [place] [address] Tel. no. Patient Name: TEE BEE Pt. [address]: [address] [place] [address]. Rec #: [id number] [place] [address]: Mariya CABALLERO, Allen Fonseca Pt CELL Order Location: DB : 1970 Female Age: 47 Order #: [id number] Reason for exam: renal colic CT Scan ABD PELVIS W/O PO OR IV CONT Exam Date: 05/10/17 This imaging exam was performed at [facility] EXAM: CT Abdomen and Pelvis Without Intravenous Contrast EXAM DATE/TIME: 05/10/2017 8:14 PM CLINICAL HISTORY: 47 years old, female; Pain; Abdominal pain; Localized; Lower; Prior surgery; Surgery date: 6+ months; Surgery type: Appendectomy. Hysterectomy; Patient HX: Rlq llq pain. HX bipolar HTN lbp; Additional info: Renal colic TECHNIQUE: Axial computed tomography images of the abdomen and pelvis without intravenous contrast. All CT scans at this facility use one or more dose reduction techniques, viz.: automated exposure control; ma/kV adjustment per patient size (including targeted exams where dose is matched to indication; i.e. head); or iterative reconstruction technique. Coronal and sagittal reformatted images were created and reviewed. COMPARISON: CT ABD 01/25/2014 12:29:23 AM FINDINGS: The spleen, gallbladder and pancreas appear grossly normal on this non-contrast study. The liver is decreased in attenuation consistent with fatty infiltration. No perinephric stranding. Questionable very minimal fullness of the right renal collecting system. Pelvic phleboliths.There is a 2 mm calcification along the posterior wall of the inferior urinary bladder just to the right of midline. It is difficult to determine whether it is actually intraluminal versus representing additional phlebolith (there is no fat plane interspersed between urinary bladder and cervical remnant at this level). Tiny stable 6 mm hyperdense left renal lesion, probable tiny complex cyst. There is a stable 1 cm left renal cyst. The bowel appears grossly normal. Appendectomy. Small ovarian follicles. The uterus has been surgically removed. IMPRESSION: Tiny calcification along the posterior inferior urinary bladder wall, possible recently passed calculi versus phlebolith as discussed above. Dictated By: Jayla Hurtado MD Dictated Date/Time: 05/10/17 1147 Signed By: Jayla Hurtado MD Date Signed: [id number] Transcribed By: ERLIN Transcribe Date/Time : 05/10/172254 [id number] Assessment & Plan (1) UTI (urinary tract infection) Status: Acute (2) CVA tenderness Status: Acute - Assessment and Plan (Free Text) Assessment: A/P- 47 year old female with PMH HTN, seizures, UTI and nephrolithiasis in past with e.coli in urine cx and symptomatic for UTI vs nephrolithiasis. not septic afebrile Normal wbc count Urine cx from 05/06/2017- e.coli urine cx from 05/10/2017- neg blood cx- neg UA- + nitrate but neg for any LE CT report noted- No mention of any pyelo, 2 mm renal calculi plan- advise to continue with the IV ceftriaxone that pt. has been started on by the primary team.( pt. has tolerated this well and denies any rash or any side effects). advised pt. if she develops any itching or rash or any other side effects to immediately notify her nurse. D/C gentamicin. advise few days of the IV ceftriaxone ( perhaps total 5 days). advise evaluation. Thank you fro allowing me to take part in the care of this patient. All above d/w patient at length and she verbalizes full understanding of all above. al above also d/w DR.Pierre Zhang.
--- NOTE | 2017-05-12 16:40 | US ---
PROCEDURE: Ultrasound of the Kidneys HISTORY: ? pyelonephritis COMPARISON: CT abdomen and pelvis from 05/10/2017 TECHNIQUE: Sonogram of the kidneys. FINDINGS: RIGHT KIDNEY: Measures: 11.5 cm. Normal in size, contour and echogenicity. No stone, solid mass lesion or hydronephrosis visualized. LEFT KIDNEY: Measures: 11.3 cm. Normal in size, contour and echogenicity. No stone, solid mass lesion or hydronephrosis visualized. There is a 1.4 x 1.2 x 1.1 cm cyst in the interpolar region OTHER FINDINGS: Incidental note is made of fatty infiltration of the liver. IMPRESSION: No sonographic evidence of pyelonephritis. No hydronephrosis or nephrolithiasis.
[2017-05-13 07:11] LABS: BLOOD UREA NITROGEN 9 mg/dl (7-17); CARBON DIOXIDE 24 mmol/L (22-30); CHLORIDE 105 mmol/L (98-107); GFR AFRICAN-AMERICAN > 60; GLUCOSE,RANDOM 107 mg/dL (65-105); POTASSIUM 3.9 MMOL/L (3.6-5.0); SODIUM 143 mmol/l (132-148)
[2017-05-13] MEDS ORDERED: Docusate-Senna 50 mg-8.6 mg Tab PO ONE (08:24)
--- NOTE | 2017-05-13 08:45 | CP.PCM.PN ---
Subjective - Date & Time of Evaluation Date of Evaluation: 05/13/17 Time of Evaluation: 08:20 - Subjective Subjective: Patient seen and examined at bedside this AM. Still has minimal suprapubic pain and mild left flank pain. Denies nausea, vomiting, fever, chills, hematuria, dizziness, chest pain, dyspnea or wheezing. Denies calf pain. Tolerating PO food and fluids. has normal BM and voiding. Slept well last night. Objective - Vital Signs/Intake and Output Vital Signs (last 24 hours): Temp Pulse Resp BP Pulse Ox 98.5 F 82 20 107/66 95 05/13/17 08:33 05/13/17 08:33 05/13/17 08:33 05/13/17 08:33 05/13/17 08:33 - Medications Medications: Current Medications Acetaminophen (Tylenol 325mg Tab) 650 mg PO Q6 PRN PRN Reason: Fever >100.4 F Amlodipine Besylate (Norvasc) 5 mg PO DAILY [facility] Last Admin: 05/12/17 09:08 Dose: 5 mg Clonazepam (Klonopin) 0.5 mg PO BID [facility] Last Admin: 05/12/17 16:22 Dose: 0.5 mg Divalproex Sodium (Depakote Dr(*Bid*)) 500 mg PO BID [facility] Last Admin: 05/12/17 16:18 Dose: 500 mg Ceftriaxone Sodium 1 gm/ (Sodium Chloride) 100 mls @ 100 mls/hr IVPB DAILY [facility] Last Admin: 05/12/17 16:19 Dose: 100 mls/hr Ketorolac Tromethamine (Toradol) 15 mg IVP Q4 PRN PRN Reason: Pain, moderate (4-7) Last Admin: 05/11/17 18:08 Dose: 15 mg Morphine Sulfate (Morphine) 2 mg IVP Q6 PRN PRN Reason: Pain, severe (8-10) Last Admin: 05/12/17 21:51 Dose: 2 mg Prazosin HCl (Minipress) 5 mg PO HS [facility] Last Admin: 05/12/17 23:00 Dose: 5 mg Quetiapine Fumarate (Seroquel) 400 mg PO HS [facility] Last Admin: 05/12/17 23:00 Dose: 400 mg Zolpidem Tartrate (Ambien) 5 mg PO HS [facility] Last Admin: 05/12/17 23:00 Dose: 5 mg - Labs Labs: 05/11/17 07:00 05/13/17 06:30 - Constitutional Appears: Well, No Acute Distress - Head Exam Head Exam: ATRAUMATIC, NORMAL INSPECTION, NORMOCEPHALIC - Eye Exam Eye Exam: Normal appearance - ENT Exam ENT Exam: Mucous Membranes Moist - Neck Exam Neck Exam: Normal Inspection - Respiratory Exam Respiratory Exam: Clear to Ausculation Bilateral, NORMAL BREATHING PATTERN. absent: Rales, Rhonchi, Wheezes - Cardiovascular Exam Cardiovascular Exam: REGULAR RHYTHM, RRR, +S1, +S2 - GI/Abdominal Exam GI & Abdominal Exam: Soft, Normal Bowel Sounds Additional comments: minimal suprapubic tenderness, no guarding or rebound tenderness. - Extremities Exam Extremities Exam: Normal Capillary Refill, Normal Inspection. absent: Pedal Edema - Back Exam Back Exam: CVA tenderness (L) - Neurological Exam Neurological Exam: Alert, Awake, Oriented x3 - Psychiatric Exam Psychiatric exam: Normal Affect, Normal Mood Assessment and Plan - Assessment and Plan (Free Text) Assessment: Assessment and plan: 1. Acute pyelonephritis -afebrile, vitals WNL. -WBC: 7.7 on 05/11/17 -Received 1 gm of IV Rocephin in ED. -Per ID consult: d/c Gentamicin and start IV ceftriaxone 1 gm daily. -Pain management: toradol 15 mg and 30mg q6h prn. -CT Abd/pelvis report: tiny calcification along the posterior inferior urinary bladder wall, possible recent passed calculi vs. phlebolith. -B/L renal US: No sonographic evidence of pyelonephritis. No hydronephrosis or nephrolithiasis. -Blood cx: no growth after 48 hrs. (2) Hypertension -well controlled -Continue with amlodipine 5 mg PO daily. (3) Prophylactic measure -SCD's -ambulate Diet: heart healthy diet
[2017-05-13] MEDS: Divalproex 500 mg DR(BID formulation) PO SCH ×2 (08:50→16:11)
[2017-05-14 07:50] LABS: BLOOD UREA NITROGEN 13 mg/dl (7-17); CALCIUM 9.1 mg/dL (8.4-10.2); CARBON DIOXIDE 24 mmol/L (22-30); CHLORIDE 106 mmol/L (98-107); GFR AFRICAN-AMERICAN > 60; GLUCOSE,RANDOM 109 mg/dL (65-105); POTASSIUM 3.8 MMOL/L (3.6-5.0); SODIUM 143 mmol/l (132-148)
--- NOTE | 2017-05-14 08:23 | CP.PCM.PN ---
Subjective - Date & Time of Evaluation Date of Evaluation: 05/14/17 Time of Evaluation: 07:25 - Subjective Subjective: 47 yo female seen and examined at bedside this AM. Pt was lying in bed in no acute distress. Pt reports she still has minimal suprapubic discomfort and left flank pain. Reports pain is controlled with pain meds. Denies nausea, vomiting, fever, chills, hematuria, dizziness, chest pain, dyspnea or wheezing. Denies calf pain. Tolerating PO food and fluids. Slept well last night. Pt reports no BM last night. Voiding regularly. Objective - Vital Signs/Intake and Output Vital Signs (last 24 hours): Temp Pulse Resp BP Pulse Ox 97.7 F 74 18 105/70 95 05/14/17 07:56 05/14/17 07:56 05/14/17 07:56 05/14/17 07:56 05/14/17 07:56 - Medications Medications: Current Medications Acetaminophen (Tylenol 325mg Tab) 650 mg PO Q6 PRN PRN Reason: Fever >100.4 F Amlodipine Besylate (Norvasc) 5 mg PO DAILY [facility] Last Admin: 05/13/17 08:52 Dose: 5 mg Clonazepam (Klonopin) 0.5 mg PO BID [facility] Last Admin: 05/13/17 16:10 Dose: 0.5 mg Divalproex Sodium (Depakote Dr(*Bid*)) 500 mg PO BID [facility] Last Admin: 05/13/17 16:11 Dose: 500 mg Famotidine (Pepcid) 20 mg PO DAILY [facility] Ceftriaxone Sodium 1 gm/ (Sodium Chloride) 100 mls @ 100 mls/hr IVPB DAILY [facility] Last Admin: 05/13/17 08:51 Dose: 100 mls/hr Ketorolac Tromethamine (Toradol) 30 mg IVP Q6 PRN PRN Reason: Pain, severe (8-10) Last Admin: 05/14/17 00:51 Dose: 30 mg Ketorolac Tromethamine (Toradol) 15 mg IVP Q6 PRN PRN Reason: Pain, moderate (4-7) Ondansetron HCl (Zofran Inj) 4 mg IVP Q6 PRN PRN Reason: Nausea/Vomiting Last Admin: 05/13/17 16:25 Dose: 4 mg Prazosin HCl (Minipress) 5 mg PO HS [facility] Last Admin: 05/13/17 20:59 Dose: 5 mg Quetiapine Fumarate (Seroquel) 400 mg PO [facility] Last Admin: 05/13/17 21:00 Dose: 400 mg Zolpidem Tartrate (Ambien) 5 mg PO [facility] Last Admin: 05/13/17 21:00 Dose: 5 mg - Labs Labs: 05/11/17 07:00 05/14/17 06:50 - Constitutional Appears: Well, No Acute Distress - Head Exam Head Exam: ATRAUMATIC, NORMAL INSPECTION, NORMOCEPHALIC - Eye Exam Eye Exam: Normal appearance - ENT Exam ENT Exam: Mucous Membranes Moist - Neck Exam Neck Exam: Normal Inspection - Respiratory Exam Respiratory Exam: Clear to Ausculation Bilateral, NORMAL BREATHING PATTERN. absent: Rales, Rhonchi, Wheezes - Cardiovascular Exam Cardiovascular Exam: REGULAR RHYTHM, RRR, +S1, +S2 - GI/Abdominal Exam GI & Abdominal Exam: Soft, Normal Bowel Sounds Additional comments: + suprapubic tenderness, no guarding or rebound tenderness. - Extremities Exam Extremities Exam: Normal Capillary Refill, Normal Inspection. absent: Calf Tenderness, Pedal Edema - Back Exam Additional comments: Mild left CVA tenderness - Neurological Exam Neurological Exam: Alert, Awake, Oriented x3 - Psychiatric Exam Psychiatric exam: Normal Affect, Normal Mood Assessment and Plan - Assessment and Plan (Free Text) Assessment: 1. Urinary Tract Infection -Pyelonephritis unlikely -B/L renal US: No sonographic evidence of pyelonephritis. No hydronephrosis or nephrolithiasis. -CT Abd/pelvis report: tiny calcification along the posterior inferior urinary bladder wall, possible recent passed calculi vs. phlebolith. -afebrile since admission, vitals WNL. -WBC: 7.7 on 05/11/17 -Received 1 gm of IV Rocephin in ED. -Per ID consult: d/c Gentamicin and start IV ceftriaxone 1 gm daily. -Continue with IV ceftriaxone 1 gm daily. -Pain management: toradol 15 mg and 30mg q6h prn. -Blood cx: no growth after 3 days. 2. Hypertension: -Continue with amlodipine 5 mg PO daily. 3. DVT Prophylaxis: -SCD's -ambulate Diet: heart healthy diet
[2017-05-14] MEDS ORDERED: Docusate-Senna 50 mg-8.6 mg Tab PO ONE (09:00)
[2017-05-14] MEDS: Divalproex 500 mg DR(BID formulation) PO SCH ×2 (10:57→17:33)
[2017-05-14] MEDS: Enoxaparin 40 mg Syringe SC SCH (10:57)
[2017-05-14] MEDS ORDERED: Dexamethasone 10 MG in Sodium Chloride 0.9% 50 ML IV ONE (15:13)
[2017-05-14] MEDS ORDERED: Magnesium Sulfate 2 gm/50 ml 2 GM/50 ML BAG IV ONE (15:30)
[2017-05-15 00:07] VITALS: O2SAT 96
[2017-05-15 07:45] LABS: BLOOD UREA NITROGEN 10 mg/dl (7-17); CALCIUM 9.4 mg/dL (8.4-10.2); CARBON DIOXIDE 18 mmol/L (22-30); CHLORIDE 106 mmol/L (98-107); GFR AFRICAN-AMERICAN > 60; GLUCOSE,RANDOM 216 mg/dL (65-105); POTASSIUM 4.4 MMOL/L (3.6-5.0); SODIUM 140 mmol/l (132-148)
--- NOTE | 2017-05-15 08:53 | CP.PCM.PN ---
Subjective - Date & Time of Evaluation Date of Evaluation: 05/15/17 Time of Evaluation: 08:20 - Subjective Subjective: Patient seen and examined at bedside this AM. Patient was lying in bed in no acute distress. Pt reports suprapubic and left flank pain has improved. Had BM last night after administering enema and voiding regularly. Denies nausea, vomiting, fever, chills, hematuria, dizziness, chest pain, dyspnea or calf pain. Tolerating PO food and fluids. Slept well last night. Objective - Vital Signs/Intake and Output Vital Signs (last 24 hours): Temp Pulse Resp BP Pulse Ox 98.5 F 88 20 120/74 96 05/15/17 08:07 05/15/17 08:07 05/15/17 08:07 05/15/17 08:07 05/15/17 08:07 - Medications Medications: Current Medications Acetaminophen (Tylenol 325mg Tab) 650 mg PO Q6 PRN PRN Reason: Fever >100.4 F Last Admin: 05/15/17 02:41 Dose: 650 mg Amlodipine Besylate (Norvasc) 5 mg PO DAILY [facility] Last Admin: 05/14/17 12:18 Dose: 5 mg Clonazepam (Klonopin) 0.5 mg PO BID [facility] Last Admin: 05/14/17 17:36 Dose: 0.5 mg Divalproex Sodium (Depakote Dr(*Bid*)) 500 mg PO BID [facility] Last Admin: 05/14/17 17:33 Dose: 500 mg Enoxaparin Sodium (Lovenox) 40 mg SC DAILY [facility] PRN Reason: Protocol Last Admin: 05/14/17 10:57 Dose: 40 mg Famotidine (Pepcid) 20 mg PO DAILY [facility] Last Admin: 05/14/17 10:59 Dose: 20 mg Ceftriaxone Sodium 1 gm/ (Sodium Chloride) 100 mls @ 100 mls/hr IVPB DAILY [facility] Last Admin: 05/14/17 12:27 Dose: 100 mls/hr Ketorolac Tromethamine (Toradol) 30 mg IVP Q6 PRN PRN Reason: Pain, severe (8-10) Last Admin: 05/15/17 00:43 Dose: 30 mg Ketorolac Tromethamine (Toradol) 15 mg IVP Q6 PRN PRN Reason: Pain, moderate (4-7) Last Admin: 05/14/17 10:54 Dose: 15 mg Metoclopramide HCl (Reglan) 10 mg IVP Q6 PRN PRN Reason: Nausea/Vomiting Last Admin: 05/15/17 00:47 Dose: 10 mg Prazosin HCl (Minipress) 5 mg PO [facility] Last Admin: 05/14/17 21:40 Dose: 5 mg Quetiapine Fumarate (Seroquel) 400 mg PO [facility] Last Admin: 05/14/17 21:39 Dose: 400 mg Zolpidem Tartrate (Ambien) 5 mg PO [facility] Last Admin: 05/14/17 21:39 Dose: 5 mg - Labs Labs: 05/11/17 07:00 05/15/17 06:55 - Constitutional Appears: Well, No Acute Distress - Head Exam Head Exam: NORMAL INSPECTION, NORMOCEPHALIC - Eye Exam Eye Exam: Normal appearance - ENT Exam ENT Exam: Mucous Membranes Moist - Neck Exam Neck Exam: Normal Inspection - Respiratory Exam Respiratory Exam: Clear to Ausculation Bilateral, NORMAL BREATHING PATTERN. absent: Rales, Rhonchi, Wheezes - Cardiovascular Exam Cardiovascular Exam: REGULAR RHYTHM, RRR, +S1, +S2 - GI/Abdominal Exam GI & Abdominal Exam: Soft, Normal Bowel Sounds Additional comments: minimal suprapubic tenderness, no guarding or rebound tenderness. - Extremities Exam Extremities Exam: Normal Capillary Refill, Normal Inspection. absent: Calf Tenderness - Back Exam Additional comments: Mild left CVA tenderness - Neurological Exam Neurological Exam: Alert, Awake, Oriented x3 - Psychiatric Exam Psychiatric exam: Normal Affect, Normal Mood Assessment and Plan - Assessment and Plan (Free Text) Assessment: Assessment and plan: 1. Urinary Tract Infection -Pyelonephritis unlikely -B/L renal US: No sonographic evidence of pyelonephritis. No hydronephrosis or nephrolithiasis. -CT Abd/pelvis report: tiny calcification along the posterior inferior urinary bladder wall, possible recent passed calculi vs. phlebolith. -afebrile since admission, vitals WNL except 2 episodes of tachycardia last night. -WBC: 7.7 on 05/11/17 -Received 1 gm of IV Rocephin in ED. -Per ID consult: d/c Gentamicin and start IV ceftriaxone 1 gm daily. -Continue with IV ceftriaxone 1 gm daily. -Pain management: toradol 15 mg and 30mg q6h prn. -Blood cx: no growth after 3 days. 2. Hypertension: -Stop amlodipine 5 mg PO daily. -Start propranolol 60 mg HS. 3. Tachycardia: -stable -start propranolol 60 mg HS. 4. Constipation: -Resolved after emema last night. 4.. DVT Prophylaxis: -SCD's -ambulate Diet: -heart healthy diet Disposition: Pt is to discharge home tomorrow.
[2017-05-15] MEDS: Divalproex 500 mg DR(BID formulation) PO SCH ×2 (09:00→16:47)
[2017-05-15] MEDS: Enoxaparin 40 mg Syringe SC SCH (09:00)
--- NOTE | 2017-05-15 09:32 | CARD ---
APPROVED REPORT EKG Measurement Heart [id number] <Conclusion> Normal sinus rhythm Normal ECG
[2017-05-15] MEDS: Lidocaine 5% Patch TD SCH (12:33)
[2017-05-15] MEDS ORDERED: Propranolol 60 mg ER Cap PO SCH (22:00)
[2017-05-16 07:59] VITALS: BP 120/81; PULSE 66; RESP 18; TEMP 97.5
[2017-05-16] MEDS: Divalproex 500 mg DR(BID formulation) PO SCH (08:43)
[2017-05-16] MEDS: Lidocaine 5% Patch TD SCH (08:43)
[2017-05-16] MEDS: Enoxaparin 40 mg Syringe SC SCH (08:44)
--- NOTE | 2017-05-16 11:43 | CP.PCM.DIS ---
Provider - Provider Date of Admission: 05/10/17 21:03 Attending physician: Elmira Camacho MD Primary care physician: Dr. Anya Leung Consults: ID: Dr. Whitehead Time Spent in preparation of Discharge (in minutes): 35 Diagnosis - Discharge Diagnosis (1) CVA tenderness Status: Resolved (2) UTI (urinary tract infection) Status: Resolved Hospital Course - Lab Results Lab Results: Micro Results 05/10/17 22:30 Blood Blood Culture - Final NO GROWTH AFTER 5 DAYS 05/10/17 22:30 Blood Gram Stain - Final TEST NOT PERFORMED 05/10/17 20:15 Blood Blood Culture - Final NO GROWTH AFTER 5 DAYS 05/10/17 20:15 Blood Gram Stain - Final TEST NOT PERFORMED 05/10/17 20:20 Urine Urine Culture - Final No Growth (<1,000 CFU/ML) Most Recent Lab Values WBC 7.7 K/uL (4.8-10.8) 05/11/17 07:00 RBC 3.90 Mil/uL (3.80-5.20) 05/11/17 07:00 Hgb 11.7 g/dL (12.0-16.0) L 05/11/17 07:00 Hct 35.8 % (34.0-47.0) 05/11/17 07:00 MCV 91.7 fl (81.0-99.0) 05/11/17 07:00 MCH 29.9 pg (27.0-31.0) 05/11/17 07:00 MCHC 32.6 g/dL (33.0-37.0) L 05/11/17 07:00 RDW 13.7 % (11.5-14.5) 05/11/17 07:00 Plt Count 256 K/uL (130-400) 05/11/17 07:00 MPV 9.0 fl (7.2-11.7) 05/11/17 07:00 Neut % (Auto) 60.5 % (50.0-75.0) 05/11/17 07:00 Lymph % (Auto) 27.6 % (20.0-40.0) 05/11/17 07:00 [place] % (Auto) 8.8 % (0.0-10.0) 05/11/17 07:00 Eos % (Auto) 2.3 % (0.0-4.0) 05/11/17 07:00 Baso % (Auto) 0.8 % (0.0-2.0) 05/11/17 07:00 Neut # 4.7 K/uL (1.8-7.0) 05/11/17 07:00 Lymph # 2.1 K/uL (1.0-4.3) 05/11/17 07:00 [place] # 0.7 K/uL (0.0-0.8) 05/11/17 07:00 Eos # 0.2 K/uL (0.0-0.7) 05/11/17 07:00 Baso # 0.1 K/uL (0.0-0.2) 05/11/17 07:00 Sodium 140 mmol/l (132-148) 05/15/17 06:55 Potassium 4.4 MMOL/L (3.6-5.0) 05/15/17 06:55 Chloride 106 mmol/L (98-107) 05/15/17 06:55 Carbon Dioxide 18 mmol/L (22-30) L 05/15/17 06:55 Anion Gap 20 (10-20) 05/15/17 06:55 BUN 10 mg/dl (7-17) 05/15/17 06:55 Creatinine 0.5 mg/dL (0.7-1.2) L 05/15/17 06:55 Est GFR ( Amer) > 60 05/15/17 06:55 Est GFR (Non-Af Amer) > 60 05/15/17 06:55 Random Glucose 216 mg/dL (65-105) H 05/15/17 06:55 Lactic Acid 1.1 MMOL/L (0.7-2.1) 05/10/17 20:20 Calcium 9.4 mg/dL (8.4-10.2) 05/15/17 06:55 Total Bilirubin 0.3 mg/dl (0.2-1.3) 05/12/17 06:30 AST 26 U/L (14-36) 05/12/17 06:30 ALT 30 U/L (9-52) 05/12/17 06:30 Alkaline Phosphatase 97 U/L (38-126) 05/12/17 06:30 Total Protein 6.2 G/DL (6.3-8.2) L 05/12/17 06:30 Albumin 3.6 g/dL (3.5-5.0) 05/12/17 06:30 Globulin 2.6 gm/dL (2.2-3.9) 05/12/17 06:30 Albumin/Globulin Ratio 1.4 (1.0-2.1) 05/12/17 06:30 Urine Color Neli (YELLOW) 05/10/17 20:20 Urine Clarity Clear (Clear) 05/10/17 20:20 Urine pH 5.0 (5.0-8.0) 05/10/17 20:20 Ur Specific [place] 1.020 (1.003-1.030) 05/10/17 20:20 Urine Protein Negative mg/dL (NEGATIVE) 05/10/17 20:20 Urine Glucose (UA) Neg mg/dL (Normal) 05/10/17 20:20 Urine Ketones Negative mg/dL (NEGATIVE) 05/10/17 20:20 Urine Blood Negative (NEGATIVE) 05/10/17 20:20 Urine Nitrate Positive (NEGATIVE) H 05/10/17 20:20 Urine Bilirubin Negative (NEGATIVE) 05/10/17 20:20 Urine Urobilinogen 4.0 mg/dL (0.2-1.0) H 05/10/17 20:20 Ur Leukocyte Esterase Neg [place]/uL (Negative) 05/10/17 20:20 Urine RBC (Auto) 5 /hpf (0-3) H 05/10/17 20:20 Urine Microscopic WBC 3 /hpf (0-5) 05/10/17 20:20 Ur Squamous Epith Cells < 1 /hpf (0-5) 05/10/17 20:20 Urine Bacteria Rare (<OCC) 05/10/17 20:20 - Hospital Course Hospital Course: 47 year old female with PMH of recurrent UTI, HTN, seizures, migraines, PTSD, Anxiety, Fibromyalgia, osteoarthritis and RA admitted to [facility] for dysuria, urinary frequenc, worsening suprapubic pain, B/L flank pain, nausea, and chills on 05/10/17. Pt had negative work up for pyelonephritis. Abdomen/pelvic CT showed tiny calcification along the posterior inferior urinary bladder wall, possible recently passed cacluli vs phlebolith. Renal US showed no sonographic evidence of pyelonephritis, hydronephrosis or nephrolithiasis. Pt received 1 gm of ceftriaxone in ED but was discontinued due to hx PCN allergy of localized thigh swelling at site of injection. ID was consulted and total of 5 days of IV ceftriaxone was recommended by Dr. Whitehead. Pt was sent home with metoprolol 25 mg po BID and ultram 50 mg po q6hprn #12. Pt has an appointment with Dr. Anya Leung on 05/29/17 at 10 am. Discharge Exam - Head Exam Head Exam: NORMAL INSPECTION, NORMOCEPHALIC - Eye Exam Eye Exam: Normal appearance - ENT Exam ENT Exam: Mucous Membranes Moist - Neck Exam Neck exam: Normal Inspection - Respiratory Exam Respiratory Exam: Clear to PA & Lateral, NORMAL BREATHING PATTERN. absent: Rales, Rhonchi, Wheezes - Cardiovascular Exam Cardiovascular Exam: REGULAR RHYTHM, RRR, +S1, +S2 - GI/Abdominal Exam GI & Abdominal Exam: Normal Bowel Sounds, Soft, Tenderness Additional comments: still has minimal suprapubic tenderness, no rebound or guarding. - Back Exam Back exam: absent: CVA tenderness (L), CVA tenderness (R) - Neurological Exam Neurological exam: Alert, CN II-XII Intact, Oriented x3 - Psychiatric Exam Psychiatric exam: Normal Affect, Normal Mood Discharge Plan - Discharge Medications Prescriptions: Metoprolol Tartrate [Lopressor] 25 mg PO BID 30 Days tab traMADol [Ultram] 50 mg PO Q6 PRN #12 tab PRN Reason: Pain, Moderate (4-7) - Follow Up Plan Condition: FAIR Disposition: HOME/ ROUTINE Instructions: Urinary Tract Infection in Women (DC), Heart Healthy Diet (DC) Additional Instructions: Follow up with Dr. Leung 05/29/17 at 10AM 2 new paper rx provided Referrals: [facility] [place] [Outside]
== END 2017-05-16 12:00 | disposition home or self-care (01) | DRG 690 ==
LOC: H.ER 18:36 → H.ERHOLD 21:03 → H.MEDSURG1 22:58
PROVIDERS: ADMIT Family Medicine Geriatric Medicine; ATTEND Family Medicine Geriatric Medicine
PROC: 3E0234Z Introduction of Serum, Toxoid and Vaccine into Muscle, Percutaneous Approach (ICD-10-PCS; principal; 2017-05-11)
DX: N39.0 Urinary tract infection, site not specified (principal); R56.9 Unspecified convulsions; I10 Essential (primary) hypertension; F31.9 Bipolar disorder, unspecified; K66.0 Peritoneal adhesions (postprocedural) (postinfection); K59.00 Constipation, unspecified; M06.9 Rheumatoid arthritis, unspecified; M79.7 Fibromyalgia; G43.909 Migraine, unspecified, not intractable, without status migrainosus; F41.9 Anxiety disorder, unspecified; M19.90 Unspecified osteoarthritis, unspecified site; F43.10 Post-traumatic stress disorder, unspecified; Z23 Encounter for immunization; Z16.29 Resistance to other single specified antibiotic; Z88.0 Allergy status to penicillin; Z87.440 Personal history of urinary (tract) infections; Z87.442 Personal history of urinary calculi; Z87.891 Personal history of nicotine dependence

== ENCOUNTER 2017-08-02 00:38 | Emergency (ER) | payer MEDICAID, SELFPAY ==
[2017-08-02 00:38] VITALS: BMI 37.0
[2017-08-02] MEDS ORDERED: Albuterol-Ipratrop 3 mg / 0.5 (3 ml) UD ONE ×2 (00:48)
[2017-08-02 00:51] VITALS: TEMP 98
[2017-08-02] MEDS ORDERED: Promethazine/Cod 6.25mg-10mg/5ml Syr UD PO STA (00:54)
[2017-08-02] MEDS ORDERED: Albuterol-Ipratrop 3 mg / 0.5 (3 ml) UD INH STA ×3 (00:54→00:56)
[2017-08-02] MEDS ORDERED: Magnesium Sulfate 2 GM in Sodium Chloride 0.9% 100 ML IV STA (00:56)
[2017-08-02] MEDS ORDERED: Magnesium Sulfate 2 gm/50 ml 2 GM/50 ML BAG ONE (01:03)
[2017-08-02] MEDS ORDERED: Promethazine/Cod 6.25mg-10mg/5ml Syr UD ONE (01:04)
--- NOTE | 2017-08-02 01:06 | ED PDOC ---
HPI: SOB/CHF/COPD Time Seen by Provider: 08/02/17 00:47 Chief Complaint (Nursing): Respiratory Distress Chief Complaint (Provider): Respiratory Distress History Per: Patient Onset/Duration Of Symptoms: Hrs ([id number]) Current Symptoms Are (Timing): Still Present Additional Complaint(s): 47 y/o female with past medical history of asthma presents to the ED complaining of shortness of breath associated with wheezing and cough productive of phlegm x 4 hours. Patient states taking inhaler with no relief. Denies nausea, vomiting, diarrhea or any further medical complaints. Past Medical History Reviewed: Historical Data, Nursing Documentation, Vital Signs Vital Signs: Last Vital Signs Temp 98 F 08/02/17 00:47 Pulse 88 08/02/17 00:47 Resp 16 08/02/17 00:47 BP 147/95 H 08/02/17 00:47 Pulse Ox 98 08/02/17 01:45 - Medical History PMH: Anxiety, Arthritis, Asthma, Back Problems, Bipolar Disorder, Bronchitis, Depression, Fibromyalgia, HTN, Migraine, Post Traumatic Stress Disorder, Rheumatoid Arthritis, Seizures Denies: HIV, Pneumothorax, Chronic Kidney Disease, Sexually Transmitted Disease - Surgical History Surgical History: Appendectomy, Cholecystectomy, Tonsillectomy, (ALso Hysterectomy) - Family History Family History: States: Unknown Family Hx, Hypertension - Social History Current smoker - smoking cessation education provided: No (Former Smoker) Alcohol: None Drugs: Cocaine (5 years ago) - Immunization History Hx Tetanus Toxoid Vaccination: No Hx Influenza Vaccination: No Hx Pneumococcal Vaccination: No - Home Medications Home Medications: Ambulatory Orders Medication Instructions Recorded Divalproex [Depakote DR] 500 mg PO BID 04/08/17 Prazosin HCL [Minipress] 5 mg PO HS 04/08/17 Quetiapine Fumarate [Seroquel] 400 mg PO HS 04/08/17 Metoprolol Tartrate [Lopressor] 25 mg PO BID 30 Days tab 05/16/17 QUEtiapine [SEROquel] 400 mg PO HS tab 05/16/17 Zolpidem [Ambien] 5 mg PO HS tab 05/16/17 clonazePAM [Klonopin] 0.5 mg PO BID tab 05/16/17 traMADol [Ultram] 50 mg PO Q6 PRN #12 tab 05/16/17 Benzonatate [Tessalon Perle] 100 mg PO TID PRN #15 capsule 08/02/17 Methylprednisolone [Medrol Dosepak] 4 mg PO ASDIR #1 pkg 08/02/17 - Allergies Allergies/Adverse Reactions: Allergies Allergy/AdvReac Type Severity Reaction Status Date / Time Penicillins Allergy Severe SWELLING Verified 08/02/17 00:47 Review of Systems ROS Statement: Except As Marked, All Systems Reviewed And Found Negative (As per HPI, otherwise negative) Respiratory: Positive for: Shortness of Breath (associated with cough productive of phlegm), Wheezing Physical Exam - Reviewed Nursing Documentation Reviewed: Yes Vital Signs Reviewed: Yes - Physical Exam Appears: Positive for: Uncomfortable Head Exam: Positive for: ATRAUMATIC, NORMAL INSPECTION, NORMOCEPHALIC Skin: Positive for: Normal Color, Warm, Dry Eye Exam: Positive for: Normal appearance ENT: Positive for: Normal ENT Inspection Neck: Positive for: Normal Cardiovascular/Chest: Positive for: Regular Rate, Rhythm. Negative for: Murmur Respiratory: Positive for: Wheezing (Diffuse expiratory wheezing), Respiratory Distress (moderate respiratory distress). Negative for: Accessory Muscle Use Gastrointestinal/Abdominal: Positive for: Normal Exam, Soft Back: Positive for: Normal Inspection Extremity: Positive for: Normal ROM Neurologic/Psych: Positive for: Alert, Oriented (x3) - Laboratory Results Result Diagrams: 08/02/17 01:20 08/02/17 01:20 - ECG O2 Sat by Pulse Oximetry: 98 (RA) Pulse Ox Interpretation: Normal - Critical Care Total Time (In Min): 30 Medical Decision Making Medical Decision Making: Time: 00:53 Initial Impression: 47 y/o female with asthma exacerbation Plan: EKG BMP Urine CBC w/ diff Albuterol 3ml INH Albuterol 3ml INH Albuterol 3ml INH Magnesium sulfate 2gm sodium chloride 100ml IV Methylprednisolone 125mg IVP Promethazine 10ml PO Heplock Insertion Peak flow pre/post treatment Peak flow pre/post treatment Peak flow pre/post treatment Influenza A b Reevaluation Time: 02:22 Upon provider reevaluation patient shows improvement in symptoms and no clinically significant abnormalities were found. Patient is medically stable and will be discharged home with Rx for Benzonatate 100mg PO and methylprednisolone 4mg PO. Clinical Impression: Asthma exacerbation Scribe Attestation: Documented by Kathleen Witt acting as a scribe for Allen Meraz MD. Scribe Attestation: All medical record entries made by the Scribe were at my direction and personally dictated by me. I have reviewed the chart and agree that the record accurately reflects my personal performance of the history, physical exam, medical decision making, and the department course for this patient. I have also personally directed, reviewed, and agree with the discharge instructions and disposition. Disposition - Clinical Impression Clinical Impression: Asthma - Disposition Disposition: Routine/Home Disposition Time: 02:22 Condition: IMPROVED Prescriptions: Benzonatate [Tessalon Perle] 100 mg PO TID PRN #15 capsule PRN Reason: Cough Methylprednisolone [Medrol Dosepak] 4 mg PO ASDIR #1 pkg Instructions: Asthma (ED) Forms: [employer] (French)
[2017-08-02] MEDS ORDERED: Magnesium Sulfate 2 gm/50 ml 2 GM/50 ML BAG IV STA (01:16)
[2017-08-02 01:35] LABS: BASO # 0.1 K/uL (0.0-0.2); BASO % 1.1 % (0.0-2.0); EOS # 0.3 K/uL (0.0-0.7); EOS % 2.5 % (0.0-4.0); LYMPH # 4.9 K/uL (1.0-4.3); MEAN CELL VOLUME 88.8 fl (81.0-99.0); MEAN CORPUSCULAR HEMOGLOBIN 28.8 pg (27.0-31.0); MEAN CORPUSCULAR HGB CONC 32.5 g/dL (33.0-37.0); MONO # 0.9 K/uL (0.0-0.8); MONO % 7.6 % (0.0-10.0); NEUT # 5.9 K/uL (1.8-7.0); NEUT % 48.8 % (50.0-75.0); NRBC % 0.1 % (0.0-0.0); RED CELL DISTRIBUTION WIDTH 14.8 % (11.5-14.5); WHITE BLOOD COUNT 12.1 K/uL (4.8-10.8)
[2017-08-02 01:42] LABS: BLOOD UREA NITROGEN 17 mg/dl (7-17); CALCIUM 9.9 mg/dL (8.4-10.2); CARBON DIOXIDE 25 mmol/L (22-30); CHLORIDE 102 mmol/L (98-107); GFR AFRICAN-AMERICAN > 60; GLUCOSE,RANDOM 108 mg/dL (65-105); POTASSIUM 4.2 MMOL/L (3.6-5.0); SODIUM 139 mmol/l (132-148)
[2017-08-02 02:33] VITALS: BP 142/77; PULSE 101; RESP 18; O2SAT 96
--- NOTE | 2017-08-02 15:08 | CARD ---
APPROVED REPORT EKG Measurement Heart [id number] <Conclusion> Sinus tachycardia Nonspecific T wave abnormality Abnormal ECG
== END 2017-08-02 02:40 | disposition home or self-care (01) ==
LOC: H.ER 00:38
DX: J45.901 Unspecified asthma with (acute) exacerbation (principal); Z88.0 Allergy status to penicillin; I10 Essential (primary) hypertension; M79.7 Fibromyalgia
CPT/HCPCS: 80048; 81025; 85025; 87804; 93005; 94640; 96365; 96375; 99283; J1885; J2930

== ENCOUNTER 2017-09-05 12:31 | Emergency (ER) | payer SELFPAY ==
[2017-09-05 12:31] VITALS: BMI 35.2
[2017-09-05] MEDS ORDERED: Sodium Chloride 0.9% 1,000 ML IV STA (13:40)
[2017-09-05] MEDS ORDERED: Dexamethasone 8 MG in Dextrose 5% In Water 50 ML IV STA (13:41)
[2017-09-05] MEDS ORDERED: Dexamethasone 4 mg/1 ml IV ONE (13:45)
--- NOTE | 2017-09-05 13:55 | ED PDOC ---
Syncope/Near Syncope/Dizziness Time Seen by Provider: 09/05/17 13:14 Chief Complaint (Nursing): Dizziness/Lightheaded Chief Complaint (Provider): "my migraine is out of control" History Per: Patient History/Exam Limitations: no limitations Onset/Duration Of Symptoms: Days Current Symptoms Are (Timing): Still Present Fall Associated With With Symptoms: No Severity: Severe Pain Scale Rating Of: 9 Additional Complaint(s): 47 y/o female with ext psych hx and hx of seizure disorder, HTN, NIDDM2, fibromyalgia, and chronic back pain presents for evaluation of persistent migraine headache. Pt reports on Friday, she suffered what she believes was food poisoning, causing her to vomit multiple times. She reports this transient illness is what triggered her migraine exacerbation. The headache started Friday evening, for which she attempted abortive therapy consisting of reglan and fioricet without any success. No vomiting since Friday. No hx of trauma/ fall. The headache is 9/10, consistent with prior migraine exacerbations, nonradiating, and associated with aura and photosensitivity. Unsure if she has been having fevers or hot flashes. She denies any neck pain/stiffness. Reports lower back pain but this is chronic without any acute changes. No weakness/ numbness/tingling, changes in vision. Missed todays prescribed Depakote doses. Pt reports hx of uncontrolled seizure disorder, and had a generalized seizure friday w/o complication. Has been having seizures every 2 or so weeks because she says they "are not controlled yet". No other active complaints. Past Medical History Vital Signs: Last Vital Signs Temp 98.1 F 09/05/17 12:38 Pulse 83 09/05/17 12:38 Resp 16 09/05/17 12:38 BP 151/92 H 09/05/17 12:38 Pulse Ox 100 09/05/17 12:38 - Medical History PMH: Anxiety, Arthritis, Asthma, Back Problems, Bipolar Disorder, Bronchitis, Depression, Fibromyalgia, HTN, Migraine, Post Traumatic Stress Disorder, Rheumatoid Arthritis, Seizures Denies: HIV, Pneumothorax, Chronic Kidney Disease, Sexually Transmitted Disease - Surgical History Surgical History: Appendectomy, Cholecystectomy, Tonsillectomy, (ALso Hysterectomy) - Family History Family History: States: Unknown Family Hx, Hypertension - Immunization History Hx Tetanus Toxoid Vaccination: No Hx Influenza Vaccination: No Hx Pneumococcal Vaccination: No - Home Medications Home Medications: Ambulatory Orders Medication Instructions Recorded Divalproex [Depakote DR] 500 mg PO BID 04/08/17 Prazosin HCL [Minipress] 5 mg PO HS 04/08/17 Quetiapine Fumarate [Seroquel] 400 mg PO HS 04/08/17 Metoprolol Tartrate [Lopressor] 25 mg PO BID 30 Days tab 05/16/17 QUEtiapine [SEROquel] 400 mg PO HS tab 05/16/17 Zolpidem [Ambien] 5 mg PO HS tab 05/16/17 clonazePAM [Klonopin] 0.5 mg PO BID tab 05/16/17 traMADol [Ultram] 50 mg PO Q6 PRN #12 tab 05/16/17 Benzonatate [Tessalon Perle] 100 mg PO TID PRN #15 capsule 08/02/17 Methylprednisolone [Medrol Dosepak] 4 mg PO ASDIR #1 pkg 08/02/17 - Allergies Allergies/Adverse Reactions: Allergies Allergy/AdvReac Type Severity Reaction Status Date / Time Penicillins Allergy Severe SWELLING Verified 08/02/17 00:47 Review of Systems ROS Statement: Except As Marked, All Systems Reviewed And Found Negative Physical Exam - Reviewed Nursing Documentation Reviewed: Yes Vital Signs Reviewed: Yes - Physical Exam Appears: Positive for: Non-toxic, No Acute Distress, Uncomfortable Skin: Positive for: Normal Color, Warm, Dry Eye Exam: Positive for: EOMI, PERRL. Negative for: Nystagmus, Conjunctival injection, Scleral icterus Neck: Positive for: Normal, Painless ROM, Supple Cardiovascular/Chest: Positive for: Regular Rate, Rhythm. Negative for: Chest Non Tender, Gallop, JVD, Murmur, Irregularly Irregular Respiratory: Positive for: Normal Breath Sounds. Negative for: Decreased Breath Sounds, Accessory Muscle Use, Crackles, Rales, Rhonchi, Wheezing, Respiratory Distress Pulses-Radial (L): 2+ Pulses-Radial (R): 2+ Gastrointestinal/Abdominal: Positive for: Normal Exam, Soft. Negative for: Tenderness Back: Negative for: L CVA Tenderness, R CVA Tenderness Extremity: Positive for: Normal ROM, Capillary Refill (<2s). Negative for: Tenderness, Pedal Edema, Calf Tenderness Lymphatic: Negative for: Adenopathy Neurologic/Psych: Positive for: Alert, mesmerist II-XII, Oriented. Negative for: Motor/Sensory Deficits, Cerebellar Tests, Aphasia, Facial Droop - Laboratory Results Result Diagrams: 09/05/17 13:55 09/05/17 13:55 - ECG O2 Sat by Pulse Oximetry: 100 - Progress ED Course And Treament: CBC CMP UA Valproic acid level troponin Decadron 8mg IV Toradol 30mg IV 1L NS Zofran 4mg IV Depakote 500mg IV re-evaluated improved headache, no aura regained appetite tolerated PO intake, symptoms resolved, pt reports feeling "a lot better" Disposition - Clinical Impression Clinical Impression: Acute onset aura migraine - Patient ED Disposition Is Patient to be Admitted: No - Disposition Disposition: Routine/Home Disposition Time: 18:10 Condition: IMPROVED Additional Instructions: get plenty of rest take medications as originally prescribed and dont miss doses follow up with your neurologist as scheduled next week Forms: [employer] ([place])
[2017-09-05 14:00] LABS: SQUAMOUS EPITHIAL 10 /hpf (0-5); URINE BACTERIA RARE (<OCC); URINE BILIRUBIN NEGATIVE (NEGATIVE); URINE BLOOD NEGATIVE (NEGATIVE); URINE CLARITY CLOUDY (Clear); URINE COLOR YELLOW (YELLOW); URINE GLUCOSE (UA) NEG (Normal); URINE LEUKOCYTE ESTERASE NEG Leu/uL (Negative); URINE NITRATE NEGATIVE (NEGATIVE); URINE PROTEIN NEGATIVE (NEGATIVE); URINE UROBILINOGEN 0.2-1.0 mg/dL (0.2-1.0)
[2017-09-05 14:11] LABS: BASO # 0.1 K/uL (0.0-0.2); EOS # 0.1 K/uL (0.0-0.7); EOS % 2.1 % (0.0-4.0); HEMOGLOBIN 12.3 g/dL (12.0-16.0); LYMPH # 2.6 K/uL (1.0-4.3); LYMPH % 38.5 % (20.0-40.0); MEAN CORPUSCULAR HEMOGLOBIN 28.7 pg (27.0-31.0); MEAN CORPUSCULAR HGB CONC 32.6 g/dL (33.0-37.0); MEAN PLATELET VOLUME 8.5 fl (7.2-11.7); MONO # 0.6 K/uL (0.0-0.8); NEUT # 3.3 K/uL (1.8-7.0); NEUT % 49.4 % (50.0-75.0); NRBC % 0.1 % (0.0-0.0); RBC 4.27 Mil/uL (3.80-5.20); RED CELL DISTRIBUTION WIDTH 14.6 % (11.5-14.5); WHITE BLOOD COUNT 6.7 K/uL (4.8-10.8)
[2017-09-05] MEDS ORDERED: Dexamethasone 4 mg/1 ml ONE (14:16)
[2017-09-05 14:29] LABS: ALB/GLOB RATIO 1.4 (1.0-2.1); ALBUMIN 3.9 g/dL (3.5-5.0); ALT/SGPT 46 U/L (9-52); AST/SGOT 27 U/L (14-36); BLOOD UREA NITROGEN 9 mg/dl (7-17); CALCIUM 8.9 mg/dL (8.4-10.2); GFR AFRICAN-AMERICAN > 60; GFR NON-AFRICAN AMERICAN > 60
[2017-09-05] MEDS ORDERED: Sodium Chloride 0.9% 1,000 ML IV SCH (14:45)
[2017-09-05 15:16] VITALS: RESP 18; TEMP 98
[2017-09-05] MEDS ORDERED: Valproate 500 MG in Sodium Chloride 0.9% 100 ML IVPB ONE (16:29)
[2017-09-05 17:03] VITALS: BP 133/63; PULSE 77; O2SAT 100
== END 2017-09-05 19:10 | disposition home or self-care (01) ==
LOC: H.ER 12:31
DX: G43.101 Migraine with aura, not intractable, with status migrainosus (principal); M79.7 Fibromyalgia; F31.9 Bipolar disorder, unspecified; F43.10 Post-traumatic stress disorder, unspecified; I10 Essential (primary) hypertension; J45.909 Unspecified asthma, uncomplicated; M06.9 Rheumatoid arthritis, unspecified; Z88.0 Allergy status to penicillin
CPT/HCPCS: 80053; 80164; 81003; 81025; 84484; 85025; 99284; J1100; J1885; J2405; J7040

== ENCOUNTER 2017-09-13 15:11 | Emergency (ER) | payer SELFPAY ==
[2017-09-13 15:11] VITALS: BMI 35.2
[2017-09-13 15:35] VITALS: BP 164/103; PULSE 84; RESP 20; TEMP 98.9; O2SAT 99
[2017-09-13] MEDS ORDERED: Lidocaine 5% Patch TD STA (16:00)
--- NOTE | 2017-09-13 16:36 | ED PDOC ---
HPI: Back Time Seen by Provider: 09/13/17 15:34 Chief Complaint (Nursing): Back Pain Chief Complaint (Provider): Back Pain History Per: Patient History/Exam Limitations: no limitations Onset/Duration Of Symptoms: Other (x1 week) Current Symptoms Are (Timing): Still Present Previous Symptoms: None Associated Symptoms: None Additional Complaint(s): 47 year old female presents to ED with complaints of neck and back pain x1 week and has a past medical history of diabetes mellitus, fibromyalgia, and sciatica. Patient notes symptoms began immediately after reaching with her right arm for something above her head. (-) chest pain, SOB, or fever. Patient confirms seeing her PCP and being prescribed Flexeril and massages. Notes symptoms improved but worsened today despite no new trauma. PCP: [facility] - Risk Factors AAA Risk Factors: Neg: Older Than 49 Years Of Age Past Medical History Reviewed: Historical Data, Nursing Documentation, Vital Signs Vital Signs: Last Vital Signs Temp 98.9 F 09/13/17 15:33 Pulse 84 09/13/17 15:33 Resp 20 09/13/17 15:33 BP 164/103 H 09/13/17 15:33 Pulse Ox 99 09/13/17 15:33 - Medical History PMH: Anxiety, Arthritis, Asthma, Back Problems, Bipolar Disorder, Bronchitis, Depression, Fibromyalgia, HTN, Migraine, Post Traumatic Stress Disorder, Rheumatoid Arthritis, Seizures Denies: HIV, Pneumothorax, Chronic Kidney Disease, Sexually Transmitted Disease - Surgical History Surgical History: Appendectomy, Cholecystectomy, Tonsillectomy, (ALso Hysterectomy) - Family History Family History: States: Unknown Family Hx, Hypertension - Social History Drugs: Denies - Immunization History Hx Tetanus Toxoid Vaccination: No Hx Influenza Vaccination: No Hx Pneumococcal Vaccination: No - Home Medications Home Medications: Ambulatory Orders Medication Instructions Recorded Divalproex [Depakote DR] 500 mg PO BID 04/08/17 Prazosin HCL [Minipress] 5 mg PO HS 04/08/17 Quetiapine Fumarate [Seroquel] 400 mg PO HS 04/08/17 Metoprolol Tartrate [Lopressor] 25 mg PO BID 30 Days tab 05/16/17 QUEtiapine [SEROquel] 400 mg PO HS tab 05/16/17 Zolpidem [Ambien] 5 mg PO HS tab 05/16/17 clonazePAM [Klonopin] 0.5 mg PO BID tab 05/16/17 traMADol [Ultram] 50 mg PO Q6 PRN #12 tab 05/16/17 Benzonatate [Tessalon Perle] 100 mg PO TID PRN #15 capsule 08/02/17 Methylprednisolone [Medrol Dosepak] 4 mg PO ASDIR #1 pkg 08/02/17 Naproxen [Naprosyn] 500 mg PO BID PRN #14 tablet 09/05/17 Methocarbamol [Robaxin] 500 mg PO Q8 PRN #30 tablet 09/13/17 - Allergies Allergies/Adverse Reactions: Allergies Allergy/AdvReac Type Severity Reaction Status Date / Time No Known Allergies Allergy Verified 09/13/17 15:59 Review of Systems ROS Statement: Except As Marked, All Systems Reviewed And Found Negative Constitutional: Negative for: Fever Cardiovascular: Negative for: Chest Pain Respiratory: Negative for: Shortness of Breath Musculoskeletal: Positive for: Neck Pain, Back Pain Physical Exam - Reviewed Nursing Documentation Reviewed: Yes Vital Signs Reviewed: Yes - Physical Exam Appears: Positive for: Non-toxic, No Acute Distress Skin: Positive for: Normal Color, Warm, Dry. Negative for: Rash Neck: Positive for: Normal, Painless ROM, Supple Cardiovascular/Chest: Positive for: Regular Rate, Rhythm. Negative for: Murmur Respiratory: Negative for: Respiratory Distress Back: Positive for: Other ((+) parathoracic tenderness, paracervical muscle tenderness. (-) midline tenderness). Negative for: Normal Inspection, L CVA Tenderness, R CVA Tenderness Extremity: Positive for: Normal ROM. Negative for: Deformity Neurologic/Psych: Positive for: Alert, Oriented. Negative for: Motor/Sensory Deficits - ECG O2 Sat by Pulse Oximetry: 99 (RA) Pulse Ox Interpretation: Normal - Radiology X-Ray: Interpreted by Me (C-spine, thoracic spine x-ray) X-Ray Interpretation: No Acute Disease Medical Decision Making Medical Decision Makin Initial impression: back pain Initial plan: * Lidoderm 1 ea TD * Ultram 50mg PO * Valium 10mg PO * XR CERVICAL SPINE * XR DORSAL THORACIC SPINE * Re-eval Scribe Attestation: Documented by Gabrielle Cardona, acting as a scribe for Simón Otoole PA-C. Provider Scribe Attestation: All medical record entries made by the Scribe were at my direction and personally dictated by me. I have reviewed the chart and agree that the record accurately reflects my personal performance of the history, physical exam, medical decision making, and the department course for this patient. I have also personally directed, reviewed, and agree with the discharge instructions and disposition. Disposition - Clinical Impression Clinical Impression: Neck pain, Upper back pain - Patient ED Disposition Is Patient to be Admitted: No - Disposition Referrals: Adan Renner MD [Staff Provider] - Disposition: Routine/Home Disposition Time: 16:59 Condition: STABLE Prescriptions: Methocarbamol [Robaxin] 500 mg PO Q8 PRN #30 tablet PRN Reason: Muscle Spasm Instructions: Muscle Spasm (ED) Forms: [facility] (Eritrean)
--- NOTE | 2017-09-13 16:47 | RAD ---
HISTORY: pain COMPARISON: No prior. FINDINGS: BONES: Alignment maintained. No fracture. DISC SPACES: Disc space heights maintained. No significant degenerative spondylosis. SOFT TISSUES: Normal. OTHER FINDINGS: None. IMPRESSION: No evidence of acute displaced nor compression fracture deformities visualized thoracic spine
[2017-09-13] MEDS ORDERED: Lidocaine 5% Patch TD ONE (16:51)
--- NOTE | 2017-09-14 09:39 | RAD ---
PROCEDURE: Cervical Spine Radiographs. HISTORY: Pain. COMPARISON: None. FINDINGS: BONES: Alignment maintained. No fracture. Note that the distal odontoid is incompletely visualized due to obscuration by overlying occiput. DISC SPACES: Mild multilevel degenerative spondylosis. Changes include varying degrees of small to medium sized anterior and tiny posterior osteophyte formation. The uncovertebral facets also mildly hypertrophic most notably at the C5-C6 level. SOFT TISSUES: Normal. No prevertebral soft tissue swelling. OTHER FINDINGS: None. IMPRESSION: No acute fractures. Multilevel degenerative spondylosis most notably affecting the C5-C6 level theDegenerative
== END 2017-09-13 17:38 | disposition home or self-care (01) ==
LOC: H.ER 15:11
DX: M54.9 Dorsalgia, unspecified (principal); M54.2 Cervicalgia

== ENCOUNTER 2017-09-16 15:03 | Emergency (ER) | payer SELFPAY ==
[2017-09-16 15:03] VITALS: BMI 35.2
[2017-09-16 16:36] VITALS: BP 157/88; RESP 16; TEMP 98.7; O2SAT 98
[2017-09-16] MEDS ORDERED: Albuterol-Ipratrop 3 mg / 0.5 (3 ml) UD INH STA (18:10)
[2017-09-16] MEDS ORDERED: Albuterol-Ipratrop 3 mg / 0.5 (3 ml) UD ONE (18:14)
--- NOTE | 2017-09-16 18:17 | ED PDOC ---
HPI: General Adult Time Seen by Provider: 09/16/17 17:59 Chief Complaint (Nursing): Cough, Cold, Congestion History Per: Patient Additional Complaint(s): Pt. states yesterday she developed a cough then this morning she developed wheezing unrelieved with her albuterol pump and nebulizer. Denies chest pain, hemoptysis, fever, palpitations, hx of previous intubations. Past Medical History Reviewed: Historical Data, Nursing Documentation, Vital Signs Vital Signs: Last Vital Signs Temp 98.7 F 09/16/17 16:32 Pulse 82 09/16/17 16:32 Resp 16 09/16/17 16:32 BP 157/88 H 09/16/17 16:32 Pulse Ox 98 09/16/17 18:18 - Medical History PMH: Anxiety, Arthritis, Asthma, Back Problems, Bipolar Disorder, Bronchitis, Depression, Fibromyalgia, HTN, Migraine, Post Traumatic Stress Disorder, Rheumatoid Arthritis, Seizures Denies: HIV, Pneumothorax, Chronic Kidney Disease, Sexually Transmitted Disease - Surgical History Surgical History: Appendectomy, Cholecystectomy, Tonsillectomy, (ALso Hysterectomy) - Family History Family History: States: Hypertension - Immunization History Hx Tetanus Toxoid Vaccination: No Hx Influenza Vaccination: No Hx Pneumococcal Vaccination: No - Home Medications Home Medications: Ambulatory Orders Medication Instructions Recorded Divalproex [Depakote DR] 500 mg PO BID 04/08/17 Prazosin HCL [Minipress] 5 mg PO HS 04/08/17 Quetiapine Fumarate [Seroquel] 400 mg PO HS 04/08/17 Metoprolol Tartrate [Lopressor] 25 mg PO BID 30 Days tab 05/16/17 QUEtiapine [SEROquel] 400 mg PO HS tab 05/16/17 Zolpidem [Ambien] 5 mg PO HS tab 05/16/17 clonazePAM [Klonopin] 0.5 mg PO BID tab 05/16/17 traMADol [Ultram] 50 mg PO Q6 PRN #12 tab 05/16/17 Benzonatate [Tessalon Perle] 100 mg PO TID PRN #15 capsule 08/02/17 Methylprednisolone [Medrol Dosepak] 4 mg PO ASDIR #1 pkg 08/02/17 Naproxen [Naprosyn] 500 mg PO BID PRN #14 tablet 09/05/17 Methocarbamol [Robaxin] 500 mg PO Q8 PRN #30 tablet 09/13/17 Albuterol 0.083% [Albuterol 3 ml IH Q6 PRN #50 neb 09/16/17 Sulfate 3 Ml] Albuterol HFA [Ventolin HFA 90 2 puff IH [id number] PRN #90 puff 09/16/17 mcg/actuation (8 g)] Methylprednisolone [Medrol Dose 4 mg PO DAILY #21 mg 09/16/17 Pack (21 tabs)] - Allergies Allergies/Adverse Reactions: Allergies Allergy/AdvReac Type Severity Reaction Status Date / Time No Known Allergies Allergy Verified 09/13/17 15:59 Review of Systems ROS Statement: Except As Marked, All Systems Reviewed And Found Negative Respiratory: Positive for: Cough, Wheezing Physical Exam - Physical Exam Appears: Positive for: Well, Non-toxic, No Acute Distress Skin: Positive for: Normal Color, Warm. Negative for: Rash Eye Exam: Positive for: Normal appearance Cardiovascular/Chest: Positive for: Regular Rate, Rhythm Respiratory: Positive for: Wheezing (b/l expiratory wheezing). Negative for: Decreased Breath Sounds, Accessory Muscle Use, Crackles, Rales, Rhonchi, Respiratory Distress Back: Positive for: Normal Inspection Extremity: Positive for: Normal ROM Neurologic/Psych: Positive for: Alert, Oriented - ECG ECG: Positive for: Interpreted By Me ECG Rhythm: Positive for: Sinus Rhythm. Negative for: ST/T Changes Rate: 78 O2 Sat by Pulse Oximetry: 98 - Radiology X-Ray: Interpreted by Me (CXR) X-Ray Interpretation: No Acute Disease - Progress ED Course And Treament: DuoNeb x 3, prednisone 40mg PO, CXR, EKG ordered. 193 On re-evaluation, Pt. seen talking on cell phone. Pt. reports feeling much better. Initial peak flow: 300 Post peak flow: 350 Lungs clear b/l. Disposition - Clinical Impression Clinical Impression: Bronchospasm, acute - Patient ED Disposition Is Patient to be Admitted: No - Disposition Referrals: Cristino Rashid [Outside] Disposition: Routine/Home Disposition Time: 19:36 Condition: IMPROVED Prescriptions: Albuterol HFA [Ventolin HFA 90 mcg/actuation (8 g)] 2 puff IH [id number] PRN #90 puff PRN Reason: Cough Albuterol 0.083% [Albuterol Sulfate 3 Ml] 3 ml IH Q6 PRN #50 neb PRN Reason: Wheezing Methylprednisolone [Medrol Dose Pack (21 tabs)] 4 mg PO DAILY #21 mg Instructions: Bronchospasm (ED) Forms: [facility] (Polish)
[2017-09-16] MEDS ORDERED: Naproxen 500 MG TAB PO ONE (19:06)
[2017-09-16 19:37] VITALS: PULSE 78
--- NOTE | 2017-09-17 12:53 | RAD ---
HISTORY: SOB COMPARISON: Chest x-ray performed 04/08/17 TECHNIQUE: Chest PA and lateral FINDINGS: Examination limited by habitus. LUNGS: No focal consolidation. Please note that chest x-ray has limited sensitivity for the detection of pulmonary masses. PLEURA: No significant pleural effusion identified. No definite pneumothorax . CARDIOVASCULAR: The cardiomediastinal silhouette appears within normal limits of size. OSSEOUS STRUCTURES: No acute osseous abnormality identified. VISUALIZED UPPER ABDOMEN: Unremarkable. OTHER FINDINGS: None. IMPRESSION: No focal consolidation, significant pleural effusion, or definite pneumothorax identified.
--- NOTE | 2017-09-18 09:48 | CARD ---
APPROVED REPORT EKG Measurement Heart [id number] <Conclusion> Normal sinus rhythm Normal ECG
== END 2017-09-16 19:43 | disposition home or self-care (01) ==
LOC: H.ER 15:03
DX: J98.01 Acute bronchospasm (principal); I10 Essential (primary) hypertension; M79.7 Fibromyalgia

== ENCOUNTER 2017-10-03 19:15 | Emergency (ER) | payer SELFPAY ==
[2017-10-03 19:16] VITALS: BMI 35.2
[2017-10-03 19:43] VITALS: BP 142/94; PULSE 86; RESP 20; TEMP 98.4; O2SAT 98
--- NOTE | 2017-10-03 20:56 | ED PDOC ---
HPI: General Adult Time Seen by Provider: 10/03/17 20:08 Chief Complaint (Nursing): Headache Chief Complaint (Provider): Back pain and hip pain History Per: Patient History/Exam Limitations: no limitations Onset/Duration Of Symptoms: Days Current Symptoms Are (Timing): Still Present Additional Complaint(s): 47 year old female presents to the emergency department with a complaint of a lower back pain that has been increasing for the last 2 months. Associated with bilateral hip pain that is becoming severe. 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 Patient is also doing physical therapy. Reports she is also increasingly sad, depressed, and getting anxious because of chronic pain and recent concern over her immigration status. Denies any new weakness or numbness. Of note, patient visited the [facility] in [place], [place] and advised to present to the emergency department for further elevation. Past Medical History Reviewed: Historical Data, Nursing Documentation, Vital Signs Vital Signs: Last Vital Signs Temp 98.4 F 10/03/17 19:38 Pulse 86 10/03/17 19:38 Resp 20 10/03/17 19:38 BP 142/94 H 10/03/17 19:38 Pulse Ox 98 10/04/17 01:58 - Medical History PMH: Anxiety, Arthritis, Asthma, Back Problems, Bipolar Disorder, Bronchitis, Depression, Fibromyalgia, HTN, Migraine, Post Traumatic Stress Disorder, Rheumatoid Arthritis, Seizures Denies: HIV, Pneumothorax, Chronic Kidney Disease, Sexually Transmitted Disease - Surgical History Surgical History: Appendectomy, Cholecystectomy, Tonsillectomy, (ALso Hysterectomy) - Family History Family History: States: Unknown Family Hx, Hypertension - Immunization History Hx Tetanus Toxoid Vaccination: No Hx Influenza Vaccination: No Hx Pneumococcal Vaccination: No - Home Medications Home Medications: Ambulatory Orders Medication Instructions Recorded Divalproex [Depakote DR] 500 mg PO BID 04/08/17 Prazosin HCL [Minipress] 5 mg PO HS 04/08/17 Quetiapine Fumarate [Seroquel] 400 mg PO HS 04/08/17 Metoprolol Tartrate [Lopressor] 25 mg PO BID 30 Days tab 05/16/17 QUEtiapine [SEROquel] 400 mg PO HS tab 05/16/17 Zolpidem [Ambien] 5 mg PO HS tab 05/16/17 clonazePAM [Klonopin] 0.5 mg PO BID tab 05/16/17 traMADol [Ultram] 50 mg PO Q6 PRN #12 tab 05/16/17 Benzonatate [Tessalon Perle] 100 mg PO TID PRN #15 capsule 08/02/17 Methylprednisolone [Medrol Dosepak] 4 mg PO ASDIR #1 pkg 08/02/17 Naproxen [Naprosyn] 500 mg PO BID PRN #14 tablet 09/05/17 Methocarbamol [Robaxin] 500 mg PO Q8 PRN #30 tablet 09/13/17 Albuterol 0.083% [Albuterol 3 ml IH Q6 PRN #50 neb 09/16/17 Sulfate 3 Ml] Albuterol HFA [Ventolin HFA 90 2 puff IH [id number] PRN #90 puff 09/16/17 mcg/actuation (8 g)] Methylprednisolone [Medrol Dose 4 mg PO DAILY #21 mg 09/16/17 Pack (21 tabs)] Acetaminophen/Butalbital/Caf 1 - 2 tab PO Q6 PRN #20 tab 10/04/17 [Fioricet] - Allergies Allergies/Adverse Reactions: Allergies Allergy/AdvReac Type Severity Reaction Status Date / Time No Known Allergies Allergy Verified 09/13/17 15:59 Review of Systems ROS Statement: Except As Marked, All Systems Reviewed And Found Negative (As per HPI, otherwise negative) Gastrointestinal: Positive for: Vomiting Musculoskeletal: Positive for: Back Pain (Lower region ), Leg Pain, Other ( Bilateral hip pain) Neurological: Positive for: Headache. Negative for: Weakness, Numbness Psych: Positive for: Anxiety, Depression (and sad) Physical Exam - Reviewed Nursing Documentation Reviewed: Yes Vital Signs Reviewed: Yes - Physical Exam Appears: Positive for: Non-toxic, In Acute Distress Head Exam: Positive for: ATRAUMATIC, NORMOCEPHALIC Skin: Positive for: Warm, Dry Eye Exam: Positive for: EOMI, PERRL ENT: Negative for: Pharyngeal Erythema, Tonsillar Exudate Neck: Positive for: Painless ROM, Supple Cardiovascular/Chest: Positive for: Regular Rate, Rhythm, Chest Non Tender. Negative for: Murmur Respiratory: Positive for: Normal Breath Sounds. Negative for: Stridor Gastrointestinal/Abdominal: Positive for: Soft. Negative for: Tenderness Back: Positive for: Vertebral Tenderness (midline lumbar spine) Extremity: Positive for: Other (pain illicted with PROM of bilateral hips R>L) Lymphatic: Negative for: Adenopathy Neurologic/Psych: Positive for: Alert. Negative for: Motor/Sensory Deficits - Laboratory Results Result Diagrams: 10/03/17 23:02 10/03/17 23:02 - ECG O2 Sat by Pulse Oximetry: 98 (RA) Pulse Ox Interpretation: Normal Medical Decision Making Medical Decision Making: Time: 2041 Initial Impression: Acute on chronic pain. Rule out lumbar thoracic fracture. Initial Plan: --Chemistry and lab work ordered --Cyclobenzaprine 10 mg PO --Toradol 30 mg IV --Lidocaine 5% 1TD --Tramadol 50 mg PO --Lumbar Spine CT --Thoracic Spine CT --Reevaluation --Discussed case with pt [facility] for treatment of chronic pain. Time: 2222 --CT Thoracic Spine FINDINGS: Limitations: Motion artifact - mild. Vertebrae: No acute fracture. Discs/spinal canal/neural foramina: No significant spinal canal stenosis. Soft tissues: Unremarkable. Lymph nodes: Calcified mediastinal lymph nodes. Lungs: Mild mosaic pattern of lung parenchyma, nonspecific. Pleural space: Trace to small bilateral pleural effusions. Liver: Fatty infiltration. IMPRESSION: 1. No fracture. 2. If back pain persists, consider MRI for further evaluation. 3. Incidental/non-acute findings are described above. Time: 2244 --Lumbar Spine CT FINDINGS: Vertebrae: No acute fracture. Discs/spinal canal/neural foramina: Minimal spondylosis. No significant spinal stenosis. Soft tissues: Mild dependent fluid within posterior subcutaneous tissues. Kidneys and ureters: Probable LEFT renal cyst. Reproductive: Apparent 2.8 x 2.6 cm hypodense lesion within RIGHT ovary, incompletely imaged. IMPRESSION: 1. No fracture. 2. If back pain persists, consider MRI for further evaluation. 3. Possible RIGHT ovarian cyst. Consider ultrasound. 4. Incidental/non-acute findings are described above 1215am Labs unremarkable. DW pt findings. On reeval pt reports that pain seem to have moved to upper back and worse migraine headache with nausea. Migraine medication and tylenol ordered. Transfer of care to Dr Meraz. pending reassessment and final ER diposition Scribe Attestation: Documented by Pearl Lorenzana, acting as a scribe for Gifty Méndez MD. Provider Scribe Attestation: All medical record entries made by the Scribe were at my direction and personally dictated by me. I have reviewed the chart and agree that the record accurately reflects my personal performance of the history, physical exam, medical decision making, and the department course for this patient. I have also personally directed, reviewed, and agree with the discharge instructions and disposition. Disposition - Clinical Impression Clinical Impression: Headache, Back pain - Disposition Disposition: Transfer of Care Disposition Time: 00:30 Condition: STABLE Prescriptions: Acetaminophen/Butalbital/Caf [Fioricet] 1 - 2 tab PO Q6 PRN #20 tab PRN Reason: Headache/Back Pain Patient Signed Over To: Allen Meraz
--- NOTE | 2017-10-03 22:23 | CT ---
EXAM: CT Thoracic Spine Without Intravenous Contrast CLINICAL HISTORY: 47 years old, female; Pain; Other: Back pain TECHNIQUE: Axial computed tomography images of the thoracic spine without intravenous contrast. All CT scans at this facility use one or more dose reduction techniques, viz.: automated exposure control; ma/kV adjustment per patient size (including targeted exams where dose is matched to indication; i.e. head); or iterative reconstruction technique. Coronal and sagittal reformatted images were created and reviewed. COMPARISON: CR - DORSAL (THORACIC) SPINE 2017-09-13 16:07 FINDINGS: Limitations: Motion artifact - mild. Vertebrae: No acute fracture. Discs/spinal canal/neural foramina: No significant spinal canal stenosis. Soft tissues: Unremarkable. Lymph nodes: Calcified mediastinal lymph nodes. Lungs: Mild mosaic pattern of lung parenchyma, nonspecific. Pleural space: Trace to small bilateral pleural effusions. Liver: Fatty infiltration. IMPRESSION: 1. No fracture. 2. If back pain persists, consider MRI for further evaluation. 3. Incidental/non-acute findings are described above.
[2017-10-03] MEDS ORDERED: Lidocaine 5% Patch TD ONE (22:35)
--- NOTE | 2017-10-03 22:45 | CT ---
EXAM: CT Lumbar Spine Without Intravenous Contrast CLINICAL HISTORY: 47 years old, female; Pain; Low back pain; Additional info: Back pain. Patient has had several epidurals TECHNIQUE: Axial computed tomography images of the lumbar spine without intravenous contrast. All CT scans at this facility use one or more dose reduction techniques, viz.: automated exposure control; ma/kV adjustment per patient size (including targeted exams where dose is matched to indication; i.e. head); or iterative reconstruction technique. Coronal and sagittal reformatted images were created and reviewed. COMPARISON: No relevant prior studies available. FINDINGS: Vertebrae: No acute fracture. Discs/spinal canal/neural foramina: Minimal spondylosis. No significant spinal stenosis. Soft tissues: Mild dependent fluid within posterior subcutaneous tissues. Kidneys and ureters: Probable LEFT renal cyst. Reproductive: Apparent 2.8 x 2.6 cm hypodense lesion within RIGHT ovary, incompletely imaged. IMPRESSION: 1. No fracture. 2. If back pain persists, consider MRI for further evaluation. 3. Possible RIGHT ovarian cyst. Consider ultrasound. 4. Incidental/non-acute findings are described above.
[2017-10-03 23:47] LABS: BASO # 0.1 K/uL (0.0-0.2); BASO % 0.6 % (0.0-2.0); EOS # 0.2 K/uL (0.0-0.7); EOS % 1.8 % (0.0-4.0); HEMOGLOBIN 12.3 g/dL (12.0-16.0); LYMPH # 2.1 K/uL (1.0-4.3); LYMPH % 22.5 % (20.0-40.0); MEAN CELL VOLUME 88.3 fl (81.0-99.0); MEAN CORPUSCULAR HEMOGLOBIN 28.9 pg (27.0-31.0); MEAN CORPUSCULAR HGB CONC 32.7 g/dL (33.0-37.0); MEAN PLATELET VOLUME 9.3 fl (7.2-11.7); MONO # 0.9 K/uL (0.0-0.8); MONO % 9.1 % (0.0-10.0); NEUT # 6.2 K/uL (1.8-7.0); RBC 4.27 Mil/uL (3.80-5.20); RED CELL DISTRIBUTION WIDTH 15.8 % (11.5-14.5); WHITE BLOOD COUNT 9.5 K/uL (4.8-10.8)
[2017-10-04 00:02] LABS: SQUAMOUS EPITHIAL 2 /hpf (0-5); URINE BACTERIA RARE (<OCC); URINE BILIRUBIN NEGATIVE (NEGATIVE); URINE BLOOD NEGATIVE (NEGATIVE); URINE CLARITY SLIGHTY-CLOUDY (Clear); URINE COLOR YELLOW (YELLOW); URINE GLUCOSE (UA) NEG (Normal); URINE LEUKOCYTE ESTERASE NEG Leu/uL (Negative); URINE NITRATE NEGATIVE (NEGATIVE); URINE PROTEIN NEGATIVE (NEGATIVE); URINE UROBILINOGEN 0.2-1.0 mg/dL (0.2-1.0)
[2017-10-04 00:09] LABS: ALB/GLOB RATIO 1.3 (1.0-2.1); ALBUMIN 4.1 g/dL (3.5-5.0); ALT/SGPT 28 U/L (9-52); AST/SGOT 28 U/L (14-36); BLOOD UREA NITROGEN 16 mg/dl (7-17); CALCIUM 9.4 mg/dL (8.4-10.2); GFR AFRICAN-AMERICAN > 60; GFR NON-AFRICAN AMERICAN > 60
[2017-10-04] MEDS ORDERED: DiphenhydrAMINE 50 mg/ml Inj IVP STA (00:14)
[2017-10-04] MEDS ORDERED: Sodium Chloride 0.9% 1,000 ML IV STA (00:15)
[2017-10-04] MEDS ORDERED: DiphenhydrAMINE 50 mg/ml Inj ONE (00:21)
--- NOTE | 2017-10-04 01:27 | ED PDOC ---
- Laboratory Results Result Diagrams: 10/03/17 23:02 10/03/17 23:02 - ECG O2 Sat by Pulse Oximetry: 98 (RA) Medical Decision Making Medical Decision Making: Time: 00:00 Patient is signed over to me by Dr. Gifty Méndez pending reevaluation. Time: :53 Upon provider reevaluation patient is feeling better, is medically stable, and requires no further treatment in the ED at this time. Patient will be discharged home with Rx for Fioricet 1-2 tab PO. Counseling was provided and all questions were answered regarding diagnosis and patient is referred to Dr. Leland Calix. There is agreement to discharge plan. Return if symptoms persist or worsen. Clinical Impression: Back pain, headache, rheumatoid arthritis Scribe Attestation: Documented by Kathleen Witt acting as a scribe for Allen Meraz MD. Scribe Attestation: All medical record entries made by the Scribe were at my direction and personally dictated by me. I have reviewed the chart and agree that the record accurately reflects my personal performance of the history, physical exam, medical decision making, and the department course for this patient. I have also personally directed, reviewed, and agree with the discharge instructions and disposition. Disposition - Clinical Impression Clinical Impression: Headache, Back pain - POA Present On Arrival: None - Disposition Disposition: Routine/Home Disposition Time: 01:53 Condition: STABLE Prescriptions: Acetaminophen/Butalbital/Caf [Fioricet] 1 - 2 tab PO Q6 PRN #20 tab PRN Reason: Headache/Back Pain
[2017-10-04] MEDS ORDERED: Lidocaine 5% Patch TD SCH (09:00)
== END 2017-10-04 02:20 | disposition home or self-care (01) ==
LOC: H.ER 19:15
DX: R51 Headache (principal); M54.9 Dorsalgia, unspecified; M06.9 Rheumatoid arthritis, unspecified
CPT/HCPCS: 72128; 72131; 80053; 81003; 81025; 85025; 87086; 96361; 96374; 96375; 99283; J1200; J1885; J2765; J7040

== ENCOUNTER 2018-01-28 16:52 | Emergency (ER) | payer OTHER, SELFPAY ==
[2018-01-28 16:52] VITALS: BMI 36.2
[2018-01-28 17:05] VITALS: O2SAT 100
[2018-01-28] MEDS ORDERED: DiphenhydrAMINE 50 mg/ml Inj IVP STA (17:44)
[2018-01-28] MEDS ORDERED: DiphenhydrAMINE 50 mg/ml Inj ONE (17:58)
[2018-01-28 18:24] LABS: BASO # 0.1 K/uL (0.0-0.2); BASO % 0.7 % (0.0-2.0); EOS # 0.2 K/uL (0.0-0.7); EOS % 2.2 % (0.0-4.0); HEMOGLOBIN 12.6 g/dL (12.0-16.0); LYMPH # 1.8 K/uL (1.0-4.3); LYMPH % 23.7 % (20.0-40.0); MEAN CELL VOLUME 89.9 fl (81.0-99.0); MEAN CORPUSCULAR HEMOGLOBIN 29.9 pg (27.0-31.0); MEAN CORPUSCULAR HGB CONC 33.3 g/dL (33.0-37.0); MEAN PLATELET VOLUME 8.5 fl (7.2-11.7); MONO # 0.6 K/uL (0.0-0.8); MONO % 8.1 % (0.0-10.0); NEUT % 65.3 % (50.0-75.0); RBC 4.22 Mil/uL (3.80-5.20); RED CELL DISTRIBUTION WIDTH 14.3 % (11.5-14.5); WHITE BLOOD COUNT 7.6 K/uL (4.8-10.8)
--- NOTE | 2018-01-28 18:39 | CT ---
PROCEDURE: CT HEAD WITHOUT CONTRAST. HISTORY: headache LEFT arm weakness COMPARISON: 08/16/2010 TECHNIQUE: Axial computed tomography images were obtained through the head/brain without intravenous contrast. Radiation dose: Total exam DLP = 993.85 mGy-cm. This CT exam was performed using one or more of the following dose reduction techniques: Automated exposure control, adjustment of the mA and/or kV according to patient size, and/or use of iterative reconstruction technique. FINDINGS: HEMORRHAGE: No intracranial hemorrhage. BRAIN: No mass effect or edema. No atrophy or chronic microvascular ischemic changes. VENTRICLES: Unremarkable. No hydrocephalus. CALVARIUM: Unremarkable. PARANASAL SINUSES: Unremarkable as visualized. No significant inflammatory changes. MASTOID AIR CELLS: Unremarkable as visualized. No inflammatory changes. OTHER FINDINGS: None. IMPRESSION: Normal CT of the Head. No evidence of acute infarct.
[2018-01-28 18:43] LABS: ALB/GLOB RATIO 1.2 (1.0-2.1); ALBUMIN 3.9 g/dL (3.5-5.0); ALT/SGPT 24 U/L (9-52); AST/SGOT 31 U/L (14-36); BLOOD UREA NITROGEN 16 mg/dl (7-17); CALCIUM 8.6 mg/dL (8.4-10.2); GFR AFRICAN-AMERICAN > 60; GFR NON-AFRICAN AMERICAN > 60
--- NOTE | 2018-01-28 19:08 | ED PDOC ---
HPI: Headache Time Seen by Provider: 01/28/18 17:14 Chief Complaint (Nursing): Headache Chief Complaint (Provider): Headache History Per: Patient History/Exam Limitations: no limitations Onset/Duration Of Symptoms: Days (x 3) Current Symptoms Are (Timing): Still Present Quality: Pressure Additional Complaint(s): 47 year old female with a history of chronic hip pain and migraines presents to the ED with a diffuse, pressure-like headache and right hip pain for the last 3 days. She also complains of left arm parastesia. Patient reports the pain is similar to previous migraine but is persistent despite taking migraine medications. Her hip pain is chronic, however now it seems to be localized to right groin and lower abdominal area. Denies vision changes, difficulty with speech or gait, nausea, vomiting, diarrhea, constipation, urinary symptoms, fever and chills. PMD: Dr. Charly Hendrickson Past Medical History Reviewed: Historical Data, Nursing Documentation, Vital Signs Vital Signs: Last Vital Signs Temp 98.3 F 01/28/18 17:02 Pulse 81 01/28/18 17:02 Resp 14 01/28/18 17:02 BP 132/86 01/28/18 17:02 Pulse Ox 100 01/28/18 17:02 - Medical History PMH: Anxiety, Arthritis, Asthma, Back Problems, Bipolar Disorder, Bronchitis, Depression, Fibromyalgia, HTN, Migraine, Post Traumatic Stress Disorder, Rheumatoid Arthritis, Seizures Denies: HIV, Pneumothorax, Chronic Kidney Disease, Sexually Transmitted Disease - Surgical History Surgical History: Appendectomy, Cholecystectomy, Tonsillectomy, (ALso Hysterectomy) Other surgeries: hysterectomy (ovaries still present) - Family History Family History: States: Unknown Family Hx, Hypertension - Immunization History Hx Tetanus Toxoid Vaccination: No Hx Influenza Vaccination: No Hx Pneumococcal Vaccination: No - Home Medications Home Medications: Ambulatory Orders Medication Instructions Recorded Divalproex [Depakote DR] 500 mg PO BID 04/08/17 Prazosin HCL [Minipress] 5 mg PO HS 04/08/17 Quetiapine Fumarate [Seroquel] 400 mg PO HS 04/08/17 Metoprolol Tartrate [Lopressor] 25 mg PO BID 30 Days tab 05/16/17 QUEtiapine [SEROquel] 400 mg PO HS tab 05/16/17 Zolpidem [Ambien] 5 mg PO HS tab 05/16/17 clonazePAM [Klonopin] 0.5 mg PO BID tab 05/16/17 traMADol [Ultram] 50 mg PO Q6 PRN #12 tab 05/16/17 Benzonatate [Tessalon Perle] 100 mg PO TID PRN #15 capsule 08/02/17 Methylprednisolone [Medrol Dosepak] 4 mg PO ASDIR #1 pkg 08/02/17 Naproxen [Naprosyn] 500 mg PO BID PRN #14 tablet 09/05/17 Methocarbamol [Robaxin] 500 mg PO Q8 PRN #30 tablet 09/13/17 Albuterol 0.083% [Albuterol 3 ml IH Q6 PRN #50 neb 09/16/17 Sulfate 3 Ml] Albuterol HFA [Ventolin HFA 90 2 puff IH [id number] PRN #90 puff 09/16/17 mcg/actuation (8 g)] Methylprednisolone [Medrol Dose 4 mg PO DAILY #21 mg 09/16/17 Pack (21 tabs)] Acetaminophen/Butalbital/Caf 1 - 2 tab PO Q6 PRN #20 tab 10/04/17 [Fioricet] Ketorolac Tromethamine [Toradol] 10 mg PO Q8 PRN #30 tab 01/28/18 Lidocaine 5% [Lidoderm] 1 ea TD DAILY PRN #20 patch 01/28/18 traMADol [Ultram] 50 mg PO TID PRN #15 tab 01/28/18 - Allergies Allergies/Adverse Reactions: Allergies Allergy/AdvReac Type Severity Reaction Status Date / Time No Known Allergies Allergy Verified 09/13/17 15:59 Review of Systems ROS Statement: Except As Marked, All Systems Reviewed And Found Negative Musculoskeletal: Positive for: Leg Pain (right hip pain) Neurological: Positive for: Headache Physical Exam - Reviewed Nursing Documentation Reviewed: Yes Vital Signs Reviewed: Yes - Physical Exam Appears: Positive for: Non-toxic, In Acute Distress (mild painful ) Head Exam: Positive for: ATRAUMATIC, NORMAL INSPECTION, NORMOCEPHALIC Skin: Positive for: Warm, Dry Eye Exam: Positive for: EOMI, PERRL. Negative for: Nystagmus ENT: Negative for: Pharyngeal Erythema, Tonsillar Exudate Neck: Positive for: Painless ROM, Supple Cardiovascular/Chest: Positive for: Regular Rate, Rhythm. Negative for: Murmur Respiratory: Positive for: Normal Breath Sounds. Negative for: Wheezing, Respiratory Distress Gastrointestinal/Abdominal: Positive for: Soft, Tenderness (mild tenderness to deep palpation of RLQ and inguinal area). Negative for: Mass, Distended, Guarding Back: Positive for: Vertebral Tenderness (midline lower lumbar spine with paraspinal ttp) Extremity: Positive for: Normal ROM. Negative for: Deformity Lymphatic: Negative for: Adenopathy Neurologic/Psych: Positive for: Alert, skylights assembler II-XII (intact), Oriented, Other ( normal speech). Negative for: Motor/Sensory Deficits - Laboratory Results Result Diagrams: 01/28/18 18:14 01/28/18 18:14 - ECG O2 Sat by Pulse Oximetry: 100 (RA) Pulse Ox Interpretation: Normal Medical Decision Making Medical Decision Making: Time: 17:43 Impression: migraine and RLQ pain Differential diagnoses include but are not limited to: atypical migraine, metabolic encephalopathy, TIA, ovarian cyst, acute on chronic hip pain Initial Plan: --Head CT --CMP --Mag --Phosphorus --valproic acid --CBC --Benedryl 25 mg IVP --Reglan 10 mg IV --Toradol 15 mg IVP --Tylenol 975 mg PO --pelvis US Head Ct FINDINGS: HEMORRHAGE: No intracranial hemorrhage. BRAIN: No mass effect or edema. No atrophy or chronic microvascular ischemic changes. VENTRICLES: Unremarkable. No hydrocephalus. CALVARIUM: Unremarkable. PARANASAL SINUSES: Unremarkable as visualized. No significant inflammatory changes. MASTOID AIR CELLS: Unremarkable as visualized. No inflammatory changes. OTHER FINDINGS: None. IMPRESSION: Normal CT of the Head. No evidence of acute infarct. Pelvic US FINDINGS: Uterus/cervix: Hysterectomy. Right ovary: Not visualized. Left ovary: Not visualized. Free fluid: No significant free fluid. IMPRESSION: 1. No acute findings Time: 20:30 --Abd Pelvis CT Abd Pelvis CT COMPARISON: CT ABDOMEN PELVIS of 05/10/17 FINDINGS: Lower thorax: Minimal pleural effusions. Bibasilar hypoventilatory changes. Cardiomegaly. ABDOMEN: Liver: Normal. No solid mass. Gallbladder and bile ducts: Moderately contracted gallbladder. No calcified stones. No ductal dilatation. Pancreas: Normal. No ductal dilatation. Spleen: Normal. No splenomegaly. Adrenals: Normal. No mass. Kidneys and ureters: No hydronephrosis. Small posterolateral left renal lesion ( Ser. 2 - Image #36) (unchanged). Stomach and bowel: Normal. No bowel obstruction. No mucosal thickening. Appendix: Previous appendectomy (as per the history provided). PELVIS: Bladder: Unremarkable as visualized. No mass nor stones. Reproductive: Previous hysterectomy. Unremarkable as visualized. ABDOMEN and PELVIS: Intraperitoneal space: Normal. No free air. No significant fluid collection. Bones/joints: No acute fracture nor islocation. Soft tissues: Unremarkable. Vasculature: Normal. No abdominal aortic aneurysm. Lymph nodes: Normal. No enlarged lymph nodes. Other findings: No significant hernia is identified. IMPRESSION: No acute findings. On reeval pt feels better. RLQ pain most likely associated with chronic RIGHT hip pain and referred. Due to insurance issues pt unable to have RIGHT hip replacement surgery and will likely continue to have increased difficulty with movement. Advised to continue physical therapy and medications as prescribed. Migraine headache has improved. Scribe Attestation: Documented by Shanda Koch, acting as a scribe for Gifty Méndez MD Provider Scribe Attestation: All medical record entries made by the Scribe were at my direction and personally dictated by me. I have reviewed the chart and agree that the record accurately reflects my personal performance of the history, physical exam, medical decision making, and the department course for this patient. I have also personally directed, reviewed, and agree with the discharge instructions and disposition. Disposition - Clinical Impression Clinical Impression: Migraine, Back pain, chronic, Hip pain Counseled Patient/Family Regarding: Studies Performed, Diagnosis, Need For Followup, Rx Given - Disposition Disposition: Routine/Home Disposition Time: 22:00 Condition: IMPROVED Prescriptions: Ketorolac Tromethamine [Toradol] 10 mg PO Q8 PRN #30 tab PRN Reason: PAIN Lidocaine 5% [Lidoderm] 1 ea TD DAILY PRN #20 patch PRN Reason: PAIN traMADol [Ultram] 50 mg PO TID PRN #15 tab PRN Reason: SEVERE PAIN ONLY Instructions: Chronic Pain, Migraine Headaches in Adults, Aseptic Necrosis of the Hip
[2018-01-28] MEDS ORDERED: Magnesium Sulfate 1 gm in D5W 1 GM/100 ML BAG IVPB STA (19:27)
[2018-01-28] MEDS ORDERED: Valproate 500 MG in Sodium Chloride 0.9% 100 ML IVPB STA (19:27)
[2018-01-28] MEDS ORDERED: Dexamethasone 4 mg/1 ml IVP STA (19:27)
[2018-01-28] MEDS ORDERED: Dexamethasone 4 mg/1 ml ONE (19:49)
[2018-01-28] MEDS ORDERED: Sodium Chloride 0.9% 50 ML IV ONE (21:02)
[2018-01-28] MEDS ORDERED: Iohexol 300 100 ML IJ ONE (21:02)
[2018-01-28 23:01] VITALS: BP 134/79; PULSE 75; RESP 15; TEMP 98.2
--- NOTE | 2018-01-29 08:48 | CT ---
PROCEDURE: CT Abdomen and Pelvis with contrast HISTORY: RIGHT pelvic pain r/o hernia COMPARISON: 05/10/2017 CT abdomen and pelvis January 28, 2018. Pelvic ultrasound TECHNIQUE: Contrast dose: 95 cc Omnipaque 300 Radiation dose: Total exam DLP = 1103.85 mGy-cm. This CT exam was performed using one or more of the following dose reduction techniques: Automated exposure control, adjustment of the mA and/or kV according to patient size, and/or use of iterative reconstruction technique. FINDINGS: LOWER THORAX: Unremarkable. LIVER: Hepatomegaly, hepatic steatosis. GALLBLADDER AND BILE DUCTS: Unremarkable. PANCREAS: Unremarkable. No gross lesion or ductal dilatation. SPLEEN: Unremarkable. ADRENALS: Unremarkable. No mass. KIDNEYS AND URETERS: Unremarkable. No hydronephrosis. No solid mass. VASCULATURE: Unremarkable. No aortic aneurysm. BOWEL: Unremarkable. No obstruction. No gross mural thickening. Constipation without fecal impaction or obstruction. APPENDIX: The appendix is not visualized, consistent with history of prior appendectomy. PERITONEUM: Unremarkable. No free fluid. No free air. LYMPH NODES: Unremarkable. No enlarged lymph nodes. BLADDER: Unremarkable. REPRODUCTIVE: Prior hysterectomy BONES: No acute fracture. OTHER FINDINGS: None. IMPRESSION: No acute findings related to/accounting for the clinical presentation. Additional benign and/or incidental findings described above. No significant interval change compared to the prior examination(s). Concordant results (preliminary interpretation) provided by [facility]. Procedure Completed: 21:10 Preliminary ([facility]) Report: Dictated and Authenticated: 22:05 Final Interpretation: 08:46 January 29, 2018.
--- NOTE | 2018-01-29 12:12 | US ---
PROCEDURE: Pelvic ultrasound HISTORY: RIGHT pelvic pain COMPARISON: January 28, 2018. CT abdomen and pelvis. TECHNIQUE: Transabdominal only. Real-time technique with 2D, duplex and color Doppler FINDINGS: Status post hysterectomy. The adnexa are not seen. No abnormal fluid collections or masses identified. IMPRESSION: Status posthysterectomy. Nonvisualization of the adnexa. Concordant results (preliminary interpretation) provided by [facility]. Procedure Completed: 19:08. Preliminary ([facility]) Report: Dictated and Authenticated: 19:35. Final Interpretation: 12:10 January 29, 2018.
== END 2018-01-28 23:01 | disposition home or self-care (01) ==
LOC: H.ER 16:52
DX: G43.909 Migraine, unspecified, not intractable, without status migrainosus (principal); M25.551 Pain in right hip; G89.29 Other chronic pain; M54.9 Dorsalgia, unspecified; I10 Essential (primary) hypertension; Z86.59 Personal history of other mental and behavioral disorders; J45.909 Unspecified asthma, uncomplicated; Z90.710 Acquired absence of both cervix and uterus; M06.9 Rheumatoid arthritis, unspecified
CPT/HCPCS: 70450; 74177; 76856; 80053; 80164; 81025; 83735; 84100; 85025; 96374; 96375; 99285; J1100; J1200; J1885; J2765; J3475; Q9967

== ENCOUNTER 2018-03-09 15:15 | Inpatient (IN) | payer MEDICAID, SELFPAY ==
[2018-03-09 15:15] VITALS: BMI 36.2
[2018-03-09] MEDS ORDERED: Albuterol-Ipratrop 3 mg / 0.5 (3 ml) UD INH STA (15:43)
[2018-03-09] MEDS ORDERED: Albuterol-Ipratrop 3 mg / 0.5 (3 ml) UD ONE ×3 (15:54→16:36)
--- NOTE | 2018-03-09 16:01 | ED PDOC ---
HPI: SOB/CHF/COPD Time Seen by Provider: 03/09/18 15:29 Chief Complaint (Nursing): Cough, Cold, Congestion Chief Complaint (Provider): Shortness of breath History Per: Patient History/Exam Limitations: no limitations Onset/Duration Of Symptoms: Days Current Symptoms Are (Timing): Still Present Current Respiratory Medications: See Home Med List Associated Symptoms: Productive Cough. denies: Fever, Chills, Ankle/Leg Swelling Additional History Per: Patient Additional Complaint(s): 48yo female, with history of asthma, comes to ER for evaluation of shortness of breath x 2 weeks. Patient stats her symptoms started 2 weeks ago when she was accidentally out in the rain. She reports associated chest tightness, wheezing, productive cough with white sputum, and rhinorrhea. Patient denies any fever, chills, or leg swelling. She reports taking mutliple asthma meds with no relief of symptoms. PMD: Dr. Hurt Past Medical History Reviewed: Historical Data, Nursing Documentation, Vital Signs Vital Signs: Last Vital Signs Temp 99 F 03/09/18 22:09 Pulse 116 H 03/09/18 22:09 Resp 18 03/09/18 23:11 BP 142/90 03/09/18 22:09 Pulse Ox 100 03/09/18 22:09 - Medical History PMH: Anxiety, Arthritis, Asthma, Back Problems, Bipolar Disorder, Bronchitis, Depression, Fibromyalgia, HTN, Migraine, Post Traumatic Stress Disorder, Rheumatoid Arthritis, Seizures Denies: HIV, Pneumothorax, Chronic Kidney Disease, Sexually Transmitted Disease - Surgical History Surgical History: Appendectomy, Cholecystectomy, Tonsillectomy, (ALso Hysterectomy) - Family History Family History: States: Hypertension - Living Arrangements Living Arrangements: With Family - Social History Current smoker - smoking cessation education provided: No Alcohol: None Drugs: Denies - Immunization History Hx Tetanus Toxoid Vaccination: No Hx Influenza Vaccination: No Hx Pneumococcal Vaccination: No - Home Medications Home Medications: Ambulatory Orders Medication Instructions Recorded Divalproex [Depakote DR] 500 mg PO Q12 03/09/18 Lisinopril [Zestril] 5 mg PO DAILY 03/09/18 Methocarbamol [Robaxin] 500 mg PO Q8 03/09/18 Metoprolol Tartrate [Lopressor] 25 mg PO Q12 03/09/18 Montelukast [Singulair] 10 mg PO DAILY 03/09/18 Nortriptyline [Pamelor] 40 mg PO HS 03/09/18 Prazosin HCL [Minipress] 2 mg PO HS 03/09/18 Prazosin HCL [Minipress] 5 mg PO HS 03/09/18 QUEtiapine [SEROquel] 300 mg PO HS 03/09/18 SUMAtriptan succinate [Imitrex Tab] 100 mg PO DAILY PRN 03/09/18 clonazePAM [Klonopin] 0.5 mg PO Q12 03/09/18 metFORMIN [glucOPHAGE] 500 mg PO BID 03/09/18 - Allergies Allergies/Adverse Reactions: Allergies Allergy/AdvReac Type Severity Reaction Status Date / Time No Known Allergies Allergy Verified 09/13/17 15:59 Review of Systems ROS Statement: Except As Marked, All Systems Reviewed And Found Negative (as per HPI) Constitutional: Negative for: Fever, Chills ENT: Positive for: Nose Discharge Cardiovascular: Positive for: Chest Pain (tightness) Respiratory: Positive for: Cough, Shortness of Breath, Sputum (white) Musculoskeletal: Negative for: Other (leg swelling) Physical Exam - Reviewed Nursing Documentation Reviewed: Yes Vital Signs Reviewed: Yes - Physical Exam Appears: Positive for: Uncomfortable Head Exam: Positive for: ATRAUMATIC, NORMOCEPHALIC Skin: Positive for: Warm, Dry Eye Exam: Positive for: EOMI, PERRL ENT: Negative for: Pharyngeal Erythema, Tonsillar Exudate Neck: Positive for: Painless ROM, Supple Cardiovascular/Chest: Positive for: Regular Rate, Rhythm, Chest Non Tender. Negative for: Murmur Respiratory: Positive for: Wheezing (inspitory and expitory wheeze; poor air movement), Respiratory Distress. Negative for: Rales, Rhonchi Gastrointestinal/Abdominal: Positive for: Soft. Negative for: Tenderness Back: Positive for: Normal Inspection. Negative for: Decreased ROM Extremity: Negative for: Pedal Edema, Calf Tenderness Lymphatic: Negative for: Adenopathy Neurologic/Psych: Positive for: Alert, Oriented. Negative for: Motor/Sensory Deficits - Laboratory Results Result Diagrams: 03/09/18 16:10 03/09/18 16:10 - ECG ECG: Positive for: Interpreted By Me, Viewed By Me ECG Rhythm: Positive for: Normal QRS, Normal ST Segment, Sinus Rhythm Rate: 90 O2 Sat by Pulse Oximetry: 99 (RA) Pulse Ox Interpretation: Normal Medical Decision Making Medical Decision Making: Impression: Chest tightness, shortness of breath Differential: Including but not limited to asthma exacerbation, pneumonia, bronchitis, reactive airway disease. Less likely CHF, ACS Plan: -- Labs -- EKG -- Chest x-ray -- Duoneb 9ml INH -- Solumedrol 125mg IVP Accession No. : [id number] Patient Name / ID : VENU OLIVEIRA / [id number] Exam Date : 03/09/2018 17:22:43 ( Approved ) Study Comment : Sex / Age : F / 48Y Creator : igor kirby Dictator : Janes Loyola MD Aerophysicist : Hand Spray Operator : Janes Loyola MD Approver2 : Report Date : 03/09/2018 17:35:04 My Comment : Date of service: 03/09/2018 HISTORY: sob cp COMPARISON: Chest radiograph dated 09/16/2017. TECHNIQUE: Chest PA and lateral FINDINGS: LUNGS: No active pulmonary disease. PLEURA: No significant pleural effusion identified. No pneumothorax apparent. CARDIOVASCULAR: Normal. OSSEOUS STRUCTURES: No significant abnormalities. VISUALIZED UPPER ABDOMEN: Normal. OTHER FINDINGS: None. IMPRESSION: No active disease. Time: 1814 Patient continues to have dyspnea and excessive cough despite ER treatment. IV Magnesium started. Case discussed with Dr. Engel and patient to be admitted for observation due to severe asthma exacerbation. Scribe Attestation: Documented by Kristine Jones, acting as a scribe for Gifty Méndez MD. Provider Scribe Attestation: All medical record entries made by the Scribe were at my direction and personally dictated by me. I have reviewed the chart and agree that the record accurately reflects my personal performance of the history, physical exam, medical decision making, and the department course for this patient. I have also personally directed, reviewed, and agree with the discharge instructions and disposition. Disposition - Clinical Impression Clinical Impression: Asthma exacerbation - Disposition Disposition Time: 18:55 Condition: FAIR - Pt Status Changed To: Hospital Disposition Of: Observation - POA Present On Arrival: None
[2018-03-09 16:28] LABS: CALCIUM 8.9 mg/dL (8.4-10.2); GFR AFRICAN-AMERICAN > 60; GFR NON-AFRICAN AMERICAN > 60
[2018-03-09 16:35] LABS: ALB/GLOB RATIO 1.3 (1.0-2.1); ALBUMIN 4.2 g/dL (3.5-5.0); ALT/SGPT 19 U/L (9-52); AST/SGOT 42 U/L (14-36); BLOOD UREA NITROGEN 14 mg/dl (7-17)
[2018-03-09 16:40] LABS: B-TYPE NATRIURETIC PEPTIDE 120 pg/ml (0-450)
[2018-03-09 16:42] LABS: BASO # 0.1 K/uL (0.0-0.2); BASO % 0.9 % (0.0-2.0); EOS # 0.1 K/uL (0.0-0.7); EOS % 1.4 % (0.0-4.0); HEMOGLOBIN 12.3 g/dL (12.0-16.0); LYMPH # 2.6 K/uL (1.0-4.3); MEAN CELL VOLUME 89.5 fl (81.0-99.0); MEAN CORPUSCULAR HEMOGLOBIN 29.2 pg (27.0-31.0); MEAN CORPUSCULAR HGB CONC 32.6 g/dL (33.0-37.0); MEAN PLATELET VOLUME 9.3 fl (7.2-11.7); MONO # 0.8 K/uL (0.0-0.8); NEUT # 6.5 K/uL (1.8-7.0); NEUT % 63.7 % (50.0-75.0); NRBC % 0.4 % (0.0-0.0); RBC 4.21 Mil/uL (3.80-5.20); RED CELL DISTRIBUTION WIDTH 14.8 % (11.5-14.5)
[2018-03-09 16:47] LABS: WHITE BLOOD COUNT 11.1 K/uL (4.8-10.8)
--- NOTE | 2018-03-09 17:42 | RAD ---
Date of service: 03/09/2018 HISTORY: sob cp COMPARISON: Chest radiograph dated 09/16/2017. TECHNIQUE: Chest PA and lateral FINDINGS: LUNGS: No active pulmonary disease. PLEURA: No significant pleural effusion identified. No pneumothorax apparent. CARDIOVASCULAR: Normal. OSSEOUS STRUCTURES: No significant abnormalities. VISUALIZED UPPER ABDOMEN: Normal. OTHER FINDINGS: None. IMPRESSION: No active disease.
[2018-03-09] MEDS ORDERED: Magnesium Sulfate 2 gm/50 ml 2 GM/50 ML BAG IVPB ONE (18:04)
[2018-03-09] MEDS ORDERED: Magnesium Sulfate 2 gm/50 ml 2 GM/50 ML BAG ONE (18:45)
[2018-03-09] MEDS ORDERED: Sodium Chloride 3% for Inhalation 4 ML VIAL.NEB IH PRN (18:57)
[2018-03-09] MEDS ORDERED: Albuterol-Ipratrop 3 mg / 0.5 (3 ml) UD INH PRN (19:05)
--- NOTE | 2018-03-09 19:31 | CP.PCM.HP ---
History of Present Illness - History of Present Illness History of Present Illness: This is a 48 year old female with a past medical history of severe asthma, seizure disorder, Type 2 DM controlled with metformin, hypertension, fibromyalgia, anxiety, arthritis, PTSD, and history of right sided hip avascular necrosis after receiving chcf steroids, who presents to the ED with the complaint of worsening shortness of breath for the last two weeks, much worse today. The patinet states that today despite multiple Ventolin tx, Formoterol, and Spiriva, she did not feel any better so she came to the ED. In the ED she was found to be in asthma exacerbation with diffuse wheezing, however was saturating well. She has a nonproductive cough. Labwork shows mild leukocytosis and elevated potassium (however the sample was hemolyzed and will be repeated) CXR is clear. The patient received 3 Duoneb treatments, Magnesium IV, and IV Solumedrol, only with minimal relief. She is being admitted to med/ surg for further monitoring and treatment of her asthma exacerbation. Patient denies chest pain, fevers, chills, nausea, vomiting, diarrhea.All of the patient's and family's questions were answered at the bedside. Present on Admission - Present on Admission Any Indicators Present on Admission: No History of DVT/PE: No History of Uncontrolled Diabetes: No Urinary Catheter: No Review of Systems - Review of Systems Review of Systems: A 12 point review of systems was conducted and found to be negative other than what was mentioned in the HPI. Past Patient History - Infectious Disease Hx of Infectious Diseases: None - Past Medical History & Family History Past Medical History?: Yes Past Family History: Reviewed and not pertinent - Past Social History Smoking Status: Never Smoked Alcohol: None Drugs: Denies Home Situation {Lives}: With Family - CARDIAC Hx Hypertension: Yes - PULMONARY Hx Asthma: Yes Hx Bronchitis: Yes - NEUROLOGICAL Hx Migraine: Yes Hx Seizures: Yes - HEENT Hx HEENT Problems: Yes Hx Glaucoma: Yes - RENAL Hx Chronic Kidney Disease: No - ENDOCRINE/METABOLIC Hx Diabetes Mellitus Type 2: Yes - HEMATOLOGICAL/ONCOLOGICAL Hx Human Immunodeficiency Virus (HIV): No - INTEGUMENTARY Hx Dermatological Problems: No - MUSCULOSKELETAL/RHEUMATOLOGICAL Hx Arthritis: Yes Hx Rheumatoid Arthritis: Yes - GASTROINTESTINAL Hx Gastrointestinal Disorders: Yes Hx Bowel Surgery: Yes Other/Comment: INTESTINAL ADHESIONS - GENITOURINARY/GYNECOLOGICAL Hx Sexually Transmitted Disorders: No - PSYCHIATRIC Hx Anxiety: Yes Hx Bipolar Disorder: Yes Hx Depression: Yes Hx Post Traumatic Stress Disorder: Yes - SURGICAL HISTORY Hx Appendectomy: Yes Hx Cholecystectomy: Yes Hx Tonsillectomy: Yes - ANESTHESIA Hx Anesthesia: Yes Hx Anesthesia Reactions: No Hx Malignant Hyperthermia: No Meds Allergies/Adverse Reactions: Allergies Allergy/AdvReac Type Severity Reaction Status Date / Time No Known Allergies Allergy Verified 09/13/17 15:59 Physical Exam - Additional Findings Additional findings: Physical exam: Constitutional- cooperative, awake, alert Head- NCAT, PERRL Eye- PERRL, EOMI ENT- normal exam, MMM. Neck- normal inspection, supple, no JVD Respiratory- Diffuse wheezing throughout all lung rubin, nonproductive cough, use of accessory respiratory muscles Cardiovascular- RRR, +S1, +S2 no MRG GI/Abdominal- normal bowel sounds, soft, no mass, no hsm Skin- warm, dry Extremities Exam- normal capillary refill, normal inspection Neurological Exam- alert, awake, oriented Psych- normal mood, normal affect Results - Vital Signs Recent Vital Signs: Last Vital Signs Temp 98.4 F 03/09/18 15:23 Pulse 90 03/09/18 18:45 Resp 19 03/09/18 15:23 BP Pulse Ox 99 03/09/18 18:45 - Labs Result Diagrams: 03/09/18 16:10 03/09/18 16:10 Labs: Laboratory Results - last 24 hr 03/09/18 03/09/18 16:10 16:10 WBC 11.1 H RBC 4.21 Hgb 12.3 Hct 37.7 MCV 89.5 MCH 29.2 MCHC 32.6 L RDW 14.8 H Plt Count 324 MPV 9.3 Neut % (Auto) 63.7 Lymph % (Auto) 26.0 Nobles % (Auto) 8.0 Eos % (Auto) 1.4 Baso % (Auto) 0.9 Neut # (Auto) 6.5 Lymph # (Auto) 2.6 Nobles # (Auto) 0.8 Eos # (Auto) 0.1 Baso # (Auto) 0.1 Sodium 136 Potassium 5.4 H Chloride 104 Carbon Dioxide 22 Anion Gap 15 BUN 14 Creatinine 0.6 L Est GFR ( Amer) > 60 Est GFR (Non-Af Amer) > 60 Random Glucose 101 Calcium 8.9 Total Bilirubin 0.7 AST 42 H D ALT 19 Alkaline Phosphatase 87 Troponin I < 0.0120 NT-Pro-B Natriuret Pep 120 Total Protein 7.4 Albumin 4.2 Globulin 3.2 Albumin/Globulin Ratio 1.3 Assessment & Plan - Assessment and Plan (Free Text) Plan: This is a 48 year old female with a past medical history of severe asthma, seizure disorder, Type 2 DM controlled with metformin, hypertension, fibromyalgia, anxiety, arthritis, PTSD, and history of right sided hip avascular necrosis after receiving chcf steroids, who presents to the ED with the complaint of worsening shortness of breath for the last two weeks, much worse today. The patinet states that today despite multiple Ventolin tx, Formoterol, and Spiriva, she did not feel any better so she came to the ED. In the ED she was found to be in asthma exacerbation with diffuse wheezing, however was saturating well. She has a nonproductive cough. Labwork shows mild leukocytosis and elevated potassium (however the sample was hemolyzed and will be repeated) CXR is clear. The patient received 3 Duoneb treatments, Magnesium IV, and IV Solumedrol, only with minimal relief. She is being admitted to med/ surg for further monitoring and treatment of her asthma exacerbation. Patient denies chest pain, shortness of breath, fevers, chills, nausea, vomiting, diarrhea, headache. All of the patient's and/or family's questions were answered at the bedside. 1) Asthma exacerbation - Admit to med/surg - Consultation with Dr. Johnson, pulmonary - Continue duoneb tx q4 hours ATC with q 2 hours additional PRN SOB - Singulair 10 mg po daily - Phenergan with codeine for significant cough - Received Magnesium in ED - Supplemental oxygen with nasal cannula - Solu-medrol 60 mg IVPB q 8 hours while in acute exacerbation; should be discontinued when possible due to history of avascular necrosis of the hip 2) Acute on chronic back pain / muscular spasm from cough - Continue home med Methocarbamol - Tylenol and percocet for severe pain 3) History of seizure disorder - Continue Depakote 4) History of migraines - continue Sumatriptan 5) Type 2 DM - Lispro sliding scale while on IV steroids - Accucheck AC+HS - Moderate carbohydrate diet 6) Fibromyalgia - Continue Nortriptyline 7) Hypertension - Lisinopril - Prazosin 8) DVT prophylaxis - Heparin
[2018-03-09] MEDS ORDERED: Oxycodone/Acetaminophen 5/325 mg Tab ONE (20:12)
[2018-03-09] MEDS ORDERED: Promethazine/Cod 6.25mg-10mg/5ml Syr UD ONE (20:12)
[2018-03-09] MEDS ORDERED: Promethazine DM 12.5 mg-30 mg/10 ml Syrup PO STA (20:28)
[2018-03-09] MEDS ORDERED: Albuterol 0.083% Inhal Sol (2.5 mg/3 mL) UD IH STA (20:28)
[2018-03-09] MEDS: Oxycodone/Acetaminophen 5/325 mg Tab PO PRN (20:42)
[2018-03-09] MEDS: Promethazine/Cod 6.25mg-10mg/5ml Syr UD PO PRN (20:43)
[2018-03-09] MEDS ORDERED: Promethazine 6.25 MG/5 ML CUP ONE (21:20)
[2018-03-09] MEDS ORDERED: Albuterol 0.083% Inhal Sol (2.5 mg/3 mL) UD ONE (21:20)
[2018-03-09] MEDS ORDERED: PRAZOSIN HCL 5 MG PO SCH (22:00)
[2018-03-09] MEDS: Divalproex 500 mg DR(BID formulation) PO SCH (22:35)
[2018-03-10] MEDS: Albuterol-Ipratrop 3 mg / 0.5 (3 ml) UD INH SCH ×6 (00:49→19:18)
[2018-03-10] MEDS ORDERED: methylPREDNISolone 60 MG in Sodium Chloride 0.9% 50 ML IVPB SCH (01:00)
[2018-03-10] MEDS: Oxycodone/Acetaminophen 5/325 mg Tab PO PRN ×4 (02:19→22:36)
[2018-03-10] MEDS: Promethazine/Cod 6.25mg-10mg/5ml Syr UD PO PRN ×2 (04:22→17:37)
[2018-03-10 06:58] LABS: HEMOGLOBIN 12.8 g/dL (12.0-16.0); MEAN CELL VOLUME 88.5 fl (81.0-99.0); MEAN CORPUSCULAR HEMOGLOBIN 29.7 pg (27.0-31.0); MEAN CORPUSCULAR HGB CONC 33.5 g/dL (33.0-37.0); RBC 4.32 Mil/uL (3.80-5.20); RED CELL DISTRIBUTION WIDTH 14.8 % (11.5-14.5); WHITE BLOOD COUNT 11.3 K/uL (4.8-10.8)
[2018-03-10] MEDS: Insulin Lispro (humaLOG) 100 Units/ml Inj SC SCH ×3 (07:00→16:44)
[2018-03-10 07:19] LABS: BLOOD UREA NITROGEN 13 mg/dl (7-17); GFR AFRICAN-AMERICAN > 60; GFR NON-AFRICAN AMERICAN > 60
[2018-03-10] MEDS: Divalproex 500 mg DR(BID formulation) PO SCH ×2 (09:12→21:34)
[2018-03-10] MEDS: Methocarbamol 500 MG Tab PO SCH ×3 (09:14→16:11)
--- NOTE | 2018-03-10 12:40 | CARD ---
APPROVED REPORT Date of service: 03/09/2018 EKG Measurement Heart [id number] <Conclusion> Normal sinus rhythm Normal ECG
[2018-03-10] MEDS: Sodium Chloride 0.9% 1,000 ML IV SCH (16:11)
[2018-03-10 16:16] VITALS: RESP 20
--- NOTE | 2018-03-10 22:01 | CP.PCM.CON ---
History of Present Illness - History of Present Illness History of Present Illness: Called to see an asthmatic patient with an actue exacerbation. Patient stated she got wet with rain the other day, and sx started. Neg heme, post SOB, wheezing, chest tightness, neg fever, scant phlegm. S/ As above. Former lite smoker in past. Yuriy ETOH or drugs. NKDA S/ as above O/ Normal PE and lungs were clear to A & P. Neg wheezing nor rhonchi. a/p as Above. Since patient had a normal Physical Exam with no wheezing, she has responded excellent to therapy. Cont to monitor peak flows. Cont KENA and LABA/ICS. Cont Montelukast. If patient is asx, she can be d/c home, and f/u with [facility] call. Avoid triggers. PFT's and allergy testing for envrion. and food allergies. PUD and DVT Px. Signing out of case. Please reconsult prn. Past Patient History - Infectious Disease Hx of Infectious Diseases: None - Past Medical History & Family History Past Medical History?: Yes - Past Social History Alcohol: None Drugs: Denies - CARDIAC Hx Hypertension: Yes - PULMONARY Hx Asthma: Yes Hx Bronchitis: Yes - NEUROLOGICAL Hx Migraine: Yes Hx Seizures: Yes - HEENT Hx HEENT Problems: Yes Hx Glaucoma: Yes - RENAL Hx Chronic Kidney Disease: No - ENDOCRINE/METABOLIC Hx Diabetes Mellitus Type 2: Yes - HEMATOLOGICAL/ONCOLOGICAL Hx Human Immunodeficiency Virus (HIV): No - INTEGUMENTARY Hx Dermatological Problems: No - MUSCULOSKELETAL/RHEUMATOLOGICAL Hx Arthritis: Yes Hx Rheumatoid Arthritis: Yes - GASTROINTESTINAL Hx Gastrointestinal Disorders: Yes Hx Bowel Surgery: No Hx Pancreatitis: Yes Other/Comment: INTESTINAL ADHESIONS - GENITOURINARY/GYNECOLOGICAL Hx Sexually Transmitted Disorders: No - PSYCHIATRIC Hx Anxiety: Yes Hx Bipolar Disorder: Yes Hx Depression: Yes Hx Post Traumatic Stress Disorder: Yes - SURGICAL HISTORY Hx Appendectomy: Yes Hx Cholecystectomy: Yes Hx Tonsillectomy: Yes - ANESTHESIA Hx Anesthesia: Yes Hx Anesthesia Reactions: No Hx Malignant Hyperthermia: No Meds Allergies/Adverse Reactions: Allergies Allergy/AdvReac Type Severity Reaction Status Date / Time No Known Allergies Allergy Verified 09/13/17 15:59 - Medications Medications: Current Medications Acetaminophen (Tylenol 325mg Tab) 650 mg PO Q6 PRN PRN Reason: Pain, Mild (1-3) Albuterol/Ipratropium (Duoneb 3 Mg/0.5 Mg (3 Ml) Ud) 3 ml INH RQ4 [facility] Last Admin: 03/10/18 19:18 Dose: 3 ml Albuterol/Ipratropium (Duoneb 3 Mg/0.5 Mg (3 Ml) Ud) 3 ml INH Q2 PRN PRN Reason: Shortness of Breath Clonazepam (Klonopin) 0.5 mg PO Q12 [facility] Last Admin: 03/10/18 21:36 Dose: 0.5 mg Divalproex Sodium (Depakote Dr(*Bid*)) 500 mg PO Q12 [facility] Last Admin: 03/10/18 21:34 Dose: 500 mg Famotidine (Pepcid) 20 mg PO BID [facility] Last Admin: 03/10/18 16:11 Dose: 20 mg Heparin Sodium (Porcine) (Heparin) 5,000 units SC Q12 [facility] PRN Reason: Protocol Last Admin: 03/10/18 21:36 Dose: 5,000 units Home Med (Sumatriptan Succinate [Imitrex Tab]) 100 mg PO DAILY PRN PRN Reason: Migraine headache Sodium Chloride (Sodium Chloride 0.9%) 1,000 mls @ 100 mls/hr IV .Q10H [facility] Stop: 03/11/18 14:54 Last Admin: 03/10/18 16:11 Dose: 100 mls/hr Insulin Human Lispro (Humalog) 0 units SC ACCU-CHECK [place] PRN Reason: Protocol Last Admin: 03/10/18 16:44 Dose: 3 units Lisinopril (Zestril) 5 mg PO DAILY [facility] Last Admin: 03/10/18 09:15 Dose: 5 mg Methocarbamol (Robaxin) 500 mg PO Q8 [facility] Last Admin: 03/10/18 16:11 Dose: 500 mg Methylprednisolone (Solu-Medrol) 60 mg IV Q8 [facility] Last Admin: 03/10/18 16:12 Dose: 60 mg Montelukast Sodium (Singulair) 10 mg PO DAILY [facility] Last Admin: 03/10/18 09:14 Dose: 10 mg Nortriptyline HCl (Pamelor) 40 mg PO HS [facility] Last Admin: 03/10/18 21:36 Dose: 40 mg Oxycodone/Acetaminophen (Percocet 5/325 Mg Tab) 1 tab PO Q4 PRN PRN Reason: pain 4-10 Stop: 03/12/18 18:58 Last Admin: 03/10/18 15:08 Dose: 1 tab Prazosin HCl (Minipress) 7 mg PO HS [facility] Last Admin: 03/10/18 21:34 Dose: 7 mg Promethazine HCl/Codeine (Phenergan/Codeine Oral Syrup) 5 ml PO Q6 PRN PRN Reason: Cough Last Admin: 03/10/18 17:37 Dose: 5 ml Quetiapine Fumarate (Seroquel) 300 mg PO HS [facility] Last Admin: 03/10/18 21:38 Dose: 300 mg Results - Vital Signs Recent Vital Signs: Last Vital Signs Temp 98.1 F 03/10/18 16:15 Pulse 96 H 03/10/18 16:15 Resp 20 03/10/18 16:15 BP 128/77 03/10/18 16:15 Pulse Ox 98 03/10/18 16:15 - Labs Result Diagrams: 03/10/18 05:30 03/10/18 05:30 Labs: Laboratory Results - last 24 hr 03/10/18 03/10/18 03/10/18 05:29 05:30 05:30 WBC 11.3 H RBC 4.32 Hgb 12.8 Hct 38.2 MCV 88.5 MCH 29.7 MCHC 33.5 RDW 14.8 H Plt Count 322 Sodium 137 Potassium 4.3 Chloride 103 Carbon Dioxide 15 L Anion Gap 23 H BUN 13 Creatinine 0.5 L Est GFR ( Amer) > 60 Est GFR (Non-Af Amer) > 60 POC Glucose (mg/dL) 199 H Random Glucose 206 H Calcium 9.0 Magnesium 2.3 03/10/18 03/10/18 11:23 16:28 WBC RBC Hgb Hct MCV MCH MCHC RDW Plt Count Sodium Potassium Chloride Carbon Dioxide Anion Gap BUN Creatinine Est GFR ( Amer) Est GFR (Non-Af Amer) POC Glucose (mg/dL) 243 H 202 H Random Glucose Calcium Magnesium
[2018-03-11] MEDS: Methocarbamol 500 MG Tab PO SCH ×2 (00:36→08:50)
[2018-03-11] MEDS: Albuterol-Ipratrop 3 mg / 0.5 (3 ml) UD INH SCH ×4 (00:47→11:39)
[2018-03-11] MEDS: Insulin Lispro (humaLOG) 100 Units/ml Inj SC SCH ×3 (01:08→11:43)
[2018-03-11] MEDS: Sodium Chloride 0.9% 1,000 ML IV SCH ×2 (01:14→10:57)
[2018-03-11 06:43] LABS: HEMOGLOBIN 11.9 g/dL (12.0-16.0); MEAN CELL VOLUME 88.6 fl (81.0-99.0); MEAN CORPUSCULAR HEMOGLOBIN 29.2 pg (27.0-31.0); RBC 4.08 Mil/uL (3.80-5.20); RED CELL DISTRIBUTION WIDTH 14.3 % (11.5-14.5); WHITE BLOOD COUNT 23.2 K/uL (4.8-10.8)
[2018-03-11 07:15] LABS: BLOOD UREA NITROGEN 14 mg/dl (7-17); CALCIUM 8.9 mg/dL (8.4-10.2); GFR AFRICAN-AMERICAN > 60; GFR NON-AFRICAN AMERICAN > 60
[2018-03-11 07:34] LABS: SQUAMOUS EPITHIAL < 1 /hpf (0-5); URINE BILIRUBIN NEGATIVE (NEGATIVE); URINE BLOOD NEGATIVE (NEGATIVE); URINE CLARITY CLEAR (Clear); URINE COLOR STRAW (YELLOW); URINE GLUCOSE (UA) >=500 mg/dL (Normal); URINE LEUKOCYTE ESTERASE NEG Leu/uL (Negative); URINE PROTEIN NEGATIVE (NEGATIVE); URINE UROBILINOGEN 0.2-1.0 mg/dL (0.2-1.0)
[2018-03-11 08:31] VITALS: BP 134/82; PULSE 74; TEMP 98.2; O2SAT 98
[2018-03-11] MEDS ORDERED: MethylPREDNISolone 40 mg Vial IV SCH (08:44)
[2018-03-11] MEDS: Divalproex 500 mg DR(BID formulation) PO SCH (08:51)
[2018-03-11] MEDS: Oxycodone/Acetaminophen 5/325 mg Tab PO PRN (09:00)
--- NOTE | 2018-03-11 11:48 | CP.PCM.DIS ---
Provider - Provider Date of Admission: 03/09/18 18:57 Attending physician: Alex Engel DO Consults: Dr Dove Time Spent in preparation of Discharge (in minutes): 25 Diagnosis - Discharge Diagnosis (1) Asthma exacerbation Status: Acute Comment: improved. continue Albuterol, Advair, Montelukast (2) Back pain, chronic Status: Acute Comment: Percocet 5mg PO q 6hrs prn for severe back pain (3) DM2 (diabetes mellitus, type 2) Status: Acute Comment: continue Metformin 500mg PO BID (4) Hypertension Status: Chronic Comment: BP stable. continue Minipress, Metoprolol, Lisinopril Hospital Course - Lab Results Lab Results: Micro Results 03/09/18 16:10 Blood-Venous Blood Culture - Preliminary NO GROWTH AFTER 24 HOURS Most Recent Lab Values WBC 23.2 K/uL (4.8-10.8) H D 03/11/18 05:40 RBC 4.08 Mil/uL (3.80-5.20) 03/11/18 05:40 Hgb 11.9 g/dL (12.0-16.0) L 03/11/18 05:40 Hct 36.2 % (34.0-47.0) 03/11/18 05:40 MCV 88.6 fl (81.0-99.0) 03/11/18 05:40 MCH 29.2 pg (27.0-31.0) 03/11/18 05:40 MCHC 33.0 g/dL (33.0-37.0) 03/11/18 05:40 RDW 14.3 % (11.5-14.5) 03/11/18 05:40 Plt Count 327 K/uL (130-400) 03/11/18 05:40 MPV 9.3 fl (7.2-11.7) 03/09/18 16:10 Neut % (Auto) 63.7 % (50.0-75.0) 03/09/18 16:10 Lymph % (Auto) 26.0 % (20.0-40.0) 03/09/18 16:10 [place] % (Auto) 8.0 % (0.0-10.0) 03/09/18 16:10 Eos % (Auto) 1.4 % (0.0-4.0) 03/09/18 16:10 Baso % (Auto) 0.9 % (0.0-2.0) 03/09/18 16:10 Neut # (Auto) 6.5 K/uL (1.8-7.0) 03/09/18 16:10 Lymph # (Auto) 2.6 K/uL (1.0-4.3) 03/09/18 16:10 [place] # (Auto) 0.8 K/uL (0.0-0.8) 03/09/18 16:10 Eos # (Auto) 0.1 K/uL (0.0-0.7) 03/09/18 16:10 Baso # (Auto) 0.1 K/uL (0.0-0.2) 03/09/18 16:10 Sodium 138 mmol/l (132-148) 03/11/18 05:40 Potassium 4.8 MMOL/L (3.6-5.0) 03/11/18 05:40 Chloride 104 mmol/L (98-107) 03/11/18 05:40 Carbon Dioxide 21 mmol/L (22-30) L 03/11/18 05:40 Anion Gap 18 (10-20) 03/11/18 05:40 BUN 14 mg/dl (7-17) 03/11/18 05:40 Creatinine 0.6 mg/dl (0.7-1.2) L 03/11/18 05:40 Est GFR ( Amer) > 60 03/11/18 05:40 Est GFR (Non-Af Amer) > 60 03/11/18 05:40 POC Glucose (mg/dL) 244 mg/dL (65-110) H 03/11/18 10:50 Random Glucose 209 mg/dL (65-105) H 03/11/18 05:40 Calcium 8.9 mg/dL (8.4-10.2) 03/11/18 05:40 Magnesium 2.3 MG/DL (1.6-2.3) 03/10/18 05:30 Total Bilirubin 0.7 mg/dl (0.2-1.3) 03/09/18 16:10 AST 42 U/L (14-36) H D 03/09/18 16:10 ALT 19 U/L (9-52) 03/09/18 16:10 Alkaline Phosphatase 87 U/L (38-126) 03/09/18 16:10 Troponin I < 0.0120 ng/mL (0.00-0.120) 03/09/18 16:10 NT-Pro-B Natriuret Pep 120 pg/ml (0-450) 03/09/18 16:10 Total Protein 7.4 G/DL (6.3-8.2) 03/09/18 16:10 Albumin 4.2 g/dL (3.5-5.0) 03/09/18 16:10 Globulin 3.2 gm/dL (2.2-3.9) 03/09/18 16:10 Albumin/Globulin Ratio 1.3 (1.0-2.1) 03/09/18 16:10 Urine Color Straw (YELLOW) 03/11/18 07:15 Urine Clarity Clear (Clear) 03/11/18 07:15 Urine pH 6.0 (5.0-8.0) 03/11/18 07:15 Ur Specific [place] 1.010 (1.003-1.030) 03/11/18 07:15 Urine Protein Negative mg/dL (NEGATIVE) 03/11/18 07:15 Urine Glucose (UA) >=500 mg/dL (Normal) 03/11/18 07:15 Urine Ketones Negative mg/dL (NEGATIVE) 03/11/18 07:15 Urine Blood Negative (NEGATIVE) 03/11/18 07:15 Urine Nitrate Negative (NEGATIVE) 03/11/18 07:15 Urine Bilirubin Negative (NEGATIVE) 03/11/18 07:15 Urine Urobilinogen 0.2-1.0 mg/dL (0.2-1.0) 03/11/18 07:15 Ur Leukocyte Esterase Neg Marina/uL (Negative) 03/11/18 07:15 Urine RBC (Auto) < 1 /hpf (0-3) 03/11/18 07:15 Urine Microscopic WBC < 1 /hpf (0-5) 03/11/18 07:15 Ur Squamous Epith Cells < 1 /hpf (0-5) 03/11/18 07:15 - Hospital Course Hospital Course: 48 yo female with history of Asthma, Seizure DO, DM2, HTN, Fibromyalgia, Arhtritis and Avascular Necrosis of the Right Hip admitted because of worsening SOB not responding to her regular asthma medication. Patient was admitted and put on IV SoluMedrol and round the clock and PRN bronchodilator and did well. Patient was breathing comfortably and felt better. She is discharged in stable condition. Discharge Exam - Head Exam Head Exam: ATRAUMATIC, NORMOCEPHALIC - Eye Exam Eye Exam: absent: Scleral icterus - ENT Exam ENT Exam: Mucous Membranes Moist - Respiratory Exam Respiratory Exam: absent: Rales, Rhonchi, Wheezes, Respiratory Distress - Cardiovascular Exam Cardiovascular Exam: REGULAR RHYTHM, +S1, +S2 - GI/Abdominal Exam GI & Abdominal Exam: Soft. absent: Tenderness - Rectal Exam Rectal Exam: Deferred - Back Exam Back exam: NORMAL INSPECTION - Neurological Exam Neurological exam: Alert, Oriented x3 - Psychiatric Exam Psychiatric exam: Normal Affect - Skin Skin Exam: Dry, Intact Discharge Plan - Discharge Medications Prescriptions: Fluticasone/Salmeterol [Advair 250-50 Diskus] 1 each IH BID #1 blst.w.dev Montelukast [Singulair] 10 mg PO DAILY #15 tab oxyCODONE/Acetaminophen [Percocet 5/325 mg Tab] 1 tab PO Q6 #20 tab - Follow Up Plan Condition: FAIR Disposition: HOME/ ROUTINE Instructions: Asthma, Adult (DC), Avoiding Asthma Triggers Referrals: Non [facility] Provider, [Non-Staff] - Amaury Johnson MD [Staff Provider] -
== END 2018-03-11 14:33 | disposition home or self-care (01) | DRG 203 ==
LOC: SUPCPDRO 15:15 → H.ER 15:15 → H.ERHOLD 18:57 → H.MEDSURG1 22:55
PROVIDERS: ADMIT Internal Medicine; ATTEND Internal Medicine
DX: J45.901 Unspecified asthma with (acute) exacerbation (principal); G89.29 Other chronic pain; I10 Essential (primary) hypertension; E11.9 Type 2 diabetes mellitus without complications; M79.7 Fibromyalgia; D72.829 Elevated white blood cell count, unspecified; G40.909 Epilepsy, unspecified, not intractable, without status epilepticus; F31.9 Bipolar disorder, unspecified; F43.10 Post-traumatic stress disorder, unspecified; F41.9 Anxiety disorder, unspecified; M06.9 Rheumatoid arthritis, unspecified; Z79.84 Long term (current) use of oral hypoglycemic drugs; Z79.52 Long term (current) use of systemic steroids; Z87.891 Personal history of nicotine dependence; Z90.710 Acquired absence of both cervix and uterus; Z79.899 Other long term (current) drug therapy

== ENCOUNTER 2018-03-18 19:10 | Emergency (ER) | payer MEDICAID, SELFPAY ==
[2018-03-18 19:10] VITALS: BMI 36.2
[2018-03-18 19:39] VITALS: TEMP 98
--- NOTE | 2018-03-18 20:11 | ED PDOC ---
HPI: Back Time Seen by Provider: 03/18/18 20:00 Chief Complaint (Nursing): Back Pain Chief Complaint (Provider): Back Pain History Per: Patient History/Exam Limitations: no limitations Onset/Duration Of Symptoms: Days (x9) Current Symptoms Are (Timing): Still Present Additional Complaint(s): 48 year old female presents to the ED for evaluation of back spasms that are a result of excessive coughing. Patient was seen in the ED on 03/09 for asthma exacerbation, and given an rx for 20 tabs of percocets which she reports using sparingly. Patient notes she is also using robaxin and ibubprofen to manage chronic pain for her avascular necrosis of the right hip. Due to the accumulation of all of this pain, patient notes having trouble sleeping, prompting her visit today. PMD: Khurram Lee Past Medical History Reviewed: Historical Data, Nursing Documentation, Vital Signs Vital Signs: Last Vital Signs Temp 98.0 F 03/18/18 19:36 Pulse 102 H 03/18/18 19:36 Resp 16 03/18/18 19:36 BP 113/76 03/18/18 19:36 Pulse Ox 95 03/18/18 19:36 - Medical History PMH: Anxiety, Arthritis, Asthma, Back Problems, Bipolar Disorder, Bronchitis, Depression, Fibromyalgia, HTN, Migraine, Pancreatitis, Post Traumatic Stress Disorder, Rheumatoid Arthritis, Seizures Denies: HIV, Pneumothorax, Chronic Kidney Disease, Sexually Transmitted Disease - Surgical History Surgical History: Appendectomy, Cholecystectomy, Tonsillectomy, (ALso Hysterectomy) - Family History Family History: States: Hypertension - Immunization History Hx Tetanus Toxoid Vaccination: No Hx Influenza Vaccination: No Hx Pneumococcal Vaccination: No - Home Medications Home Medications: Ambulatory Orders Medication Instructions Recorded Divalproex [Depakote DR] 500 mg PO Q12 03/09/18 Lisinopril [Zestril] 5 mg PO DAILY 03/09/18 Methocarbamol [Robaxin] 500 mg PO Q8 03/09/18 Metoprolol Tartrate [Lopressor] 25 mg PO Q12 03/09/18 Nortriptyline [Pamelor] 40 mg PO HS 03/09/18 Prazosin HCL [Minipress] 5 mg PO HS 03/09/18 QUEtiapine [SEROquel] 300 mg PO HS 03/09/18 SUMAtriptan succinate [Imitrex Tab] 100 mg PO DAILY PRN 03/09/18 clonazePAM [Klonopin] 0.5 mg PO Q12 03/09/18 metFORMIN [glucOPHAGE] 500 mg PO BID 03/09/18 Fluticasone/Salmeterol [Advair 1 each IH BID #1 blst.w.dev 03/11/18 250-50 Diskus] Montelukast [Singulair] 10 mg PO DAILY #15 tab 03/11/18 oxyCODONE/Acetaminophen [Percocet 1 tab PO Q6 #20 tab 03/11/18 5/325 mg Tab] - Allergies Allergies/Adverse Reactions: Allergies Allergy/AdvReac Type Severity Reaction Status Date / Time No Known Allergies Allergy Verified 09/13/17 15:59 Review of Systems ROS Statement: Except As Marked, All Systems Reviewed And Found Negative Musculoskeletal: Positive for: Back Pain (spasms) Physical Exam - Reviewed Nursing Documentation Reviewed: Yes Vital Signs Reviewed: Yes - Physical Exam Appears: Positive for: No Acute Distress Head Exam: Positive for: ATRAUMATIC, NORMOCEPHALIC Skin: Positive for: Normal Color, Warm, Dry Eye Exam: Positive for: Normal appearance ENT: Positive for: Normal ENT Inspection Neck: Positive for: Normal, Painless ROM, Supple Cardiovascular/Chest: Positive for: Regular Rate, Rhythm Respiratory: Positive for: Normal Breath Sounds. Negative for: Accessory Muscle Use, Wheezing, Respiratory Distress Gastrointestinal/Abdominal: Positive for: Normal Exam, Soft. Negative for: Tenderness Back: Positive for: Other (bilateral para thoracic tenderness) Neurologic/Psych: Positive for: Alert, Oriented (x3). Negative for: Motor/ Sensory Deficits - ECG O2 Sat by Pulse Oximetry: 95 (RA) Pulse Ox Interpretation: Normal Medical Decision Making Medical Decision Making: Time: 20:01 Initial Impression: back spasms Initial Plan: --Dilaudid 0.5 mg IM Scribe Attestation: Documented by Huyen Bernal, acting as a scribe for Randall Witt PA-C. Provider Scribe Attestation: All medical record entries made by the Scribe were at my direction and personally dictated by me. I have reviewed the chart and agree that the record accurately reflects my personal performance of the history, physical exam, medical decision making, and the department course for this patient. I have also personally directed, reviewed, and agree with the discharge instructions and disposition. Disposition - Clinical Impression Clinical Impression: Muscle spasm - Patient ED Disposition Is Patient to be Admitted: No - Disposition Disposition: Routine/Home Disposition Time: 21:04 Condition: FAIR Instructions: Muscle Spasms (DC) Forms: [employer] (Urdu)
[2018-03-18] MEDS ORDERED: Morphine 4 MG/ML VIAL ONE (20:30)
[2018-03-18 21:05] VITALS: BP 114/76; PULSE 80; RESP 18
[2018-03-18 22:50] VITALS: O2SAT 95
== END 2018-03-18 21:05 | disposition home or self-care (01) ==
LOC: H.ER 19:10
DX: M62.838 Other muscle spasm (principal)
CPT/HCPCS: 96372; 99283; J2270

== ENCOUNTER 2018-03-25 14:23 | Emergency (ER) | payer SELFPAY ==
[2018-03-25 14:23] VITALS: BMI 36.2
[2018-03-25 14:35] VITALS: BP 128/85; PULSE 118; RESP 16; TEMP 98; O2SAT 99
[2018-03-25] MEDS ORDERED: Oxycodone/Acetaminophen 5/325 mg Tab PO STA (15:33)
[2018-03-25] MEDS ORDERED: Oxycodone/Acetaminophen 5/325 mg Tab ONE (15:48)
--- NOTE | 2018-03-25 15:59 | ED PDOC ---
HPI: Back Time Seen by Provider: 03/25/18 14:38 Chief Complaint (Nursing): Back Pain Chief Complaint (Provider): Back Pain History Per: Patient History/Exam Limitations: no limitations Onset/Duration Of Symptoms: Days (x2 weeks) Current Symptoms Are (Timing): Still Present Additional Complaint(s): 48 year old female presents to the ED for evaluation of back pain. Patient states that for the last two weeks, s/p being hospitalized for an asthma attack , she has been having severe mid left back pain, worse with movement, deep inspiration, and upon palpation. When she followed up at a clinic earlier this week for the same issue, patient reports being told it was just muscle spasms from the previous asthma hospitalization. However, patient does not note any improvement of symptoms, but also has not been taking medications. Otherwise, denies fever, chills, cough, and congestion. When asked specifically where the pain was, patient points to her left mid back and left flank, but denies urinary complaints. PMD: none provided Past Medical History Reviewed: Historical Data, Nursing Documentation, Vital Signs Vital Signs: Last Vital Signs Temp 98.0 F 03/25/18 14:29 Pulse 118 H 03/25/18 14:29 Resp 16 03/25/18 14:29 BP 128/85 03/25/18 14:29 Pulse Ox 99 03/25/18 14:29 - Medical History PMH: Anxiety, Arthritis, Asthma, Back Problems, Bipolar Disorder, Bronchitis, Depression, Fibromyalgia, HTN, Migraine, Pancreatitis, Post Traumatic Stress Disorder, Rheumatoid Arthritis, Seizures Denies: HIV, Pneumothorax, Chronic Kidney Disease, Sexually Transmitted Disease - Surgical History Surgical History: Appendectomy, Cholecystectomy, Tonsillectomy, (ALso Hysterectomy) - Family History Family History: States: Hypertension - Social History Current smoker - smoking cessation education provided: No Alcohol: None Drugs: Denies - Immunization History Hx Tetanus Toxoid Vaccination: No Hx Influenza Vaccination: No Hx Pneumococcal Vaccination: No - Home Medications Home Medications: Ambulatory Orders Medication Instructions Recorded Divalproex [Depakote DR] 500 mg PO Q12 03/09/18 Lisinopril [Zestril] 5 mg PO DAILY 03/09/18 Methocarbamol [Robaxin] 500 mg PO Q8 03/09/18 Metoprolol Tartrate [Lopressor] 25 mg PO Q12 03/09/18 Nortriptyline [Pamelor] 40 mg PO HS 03/09/18 Prazosin HCL [Minipress] 5 mg PO HS 03/09/18 QUEtiapine [SEROquel] 300 mg PO HS 03/09/18 SUMAtriptan succinate [Imitrex Tab] 100 mg PO DAILY PRN 03/09/18 clonazePAM [Klonopin] 0.5 mg PO Q12 03/09/18 metFORMIN [glucOPHAGE] 500 mg PO BID 03/09/18 Fluticasone/Salmeterol [Advair 1 each IH BID #1 blst.w.dev 03/11/18 250-50 Diskus] Montelukast [Singulair] 10 mg PO DAILY #15 tab 03/11/18 oxyCODONE/Acetaminophen [Percocet 1 tab PO Q6 #20 tab 03/11/18 5/325 mg Tab] Cyclobenzaprine [Cyclobenzaprine 10 mg PO TID #20 tab 03/25/18 HCl] Ibuprofen [Motrin] 600 mg PO Q6 #20 tab 03/25/18 oxyCODONE/Acetaminophen [Percocet 1 ea PO Q6 PRN #5 tab 03/25/18 5/325 mg Tab] - Allergies Allergies/Adverse Reactions: Allergies Allergy/AdvReac Type Severity Reaction Status Date / Time No Known Allergies Allergy Verified 09/13/17 15:59 Review of Systems ROS Statement: Except As Marked, All Systems Reviewed And Found Negative Constitutional: Negative for: Fever, Chills ENT: Negative for: Nose Congestion Respiratory: Negative for: Cough Genitourinary Female: Negative for: Dysuria, Frequency Musculoskeletal: Positive for: Back Pain (mid left, severe) Physical Exam - Reviewed Nursing Documentation Reviewed: Yes Vital Signs Reviewed: Yes - Physical Exam Appears: Positive for: No Acute Distress Head Exam: Positive for: ATRAUMATIC, NORMOCEPHALIC Skin: Positive for: Normal Color, Warm, Dry Eye Exam: Positive for: Normal appearance Neck: Positive for: Normal, Painless ROM, Supple Cardiovascular/Chest: Positive for: Regular Rate, Rhythm Respiratory: Positive for: Normal Breath Sounds. Negative for: Accessory Muscle Use, Respiratory Distress Gastrointestinal/Abdominal: Positive for: Normal Exam, Soft. Negative for: Tenderness Back: Positive for: L CVA Tenderness, Other (to left thoracic paraspinal area with no ecchymosis, edema, erythema, or crepitus). Negative for: R CVA Tenderness Extremity: Positive for: Normal ROM Neurologic/Psych: Positive for: Alert, Oriented (x3). Negative for: Motor/ Sensory Deficits - ECG O2 Sat by Pulse Oximetry: 99 (RA) Pulse Ox Interpretation: Normal Medical Decision Making Medical Decision Making: Time: 1530 Initial Impression: muscle spasm, r/o uti Initial Plan: --Urine dipstick --XR ribs and chest --Flexeril 10 mg PO --Motrrin 600 mg PO --Percocet 1 tab PO --XR dorsal (thoracic) spine --Urinalysis Dip (-) leuks, blood or nites. XR: NAD, as read by LORE Pt doing well after medications. advise to follow up with PMD, return to ED with any concerns Scribe Attestation: Documented by Huyen Bernal, acting as a scribe for Gifty Thibodeaux PA-C. Provider Scribe Attestation: All medical record entries made by the Scribe were at my direction and personally dictated by me. I have reviewed the chart and agree that the record accurately reflects my personal performance of the history, physical exam, medical decision making, and the department course for this patient. I have also personally directed, reviewed, and agree with the discharge instructions and disposition. Disposition - Clinical Impression Clinical Impression: Upper back strain - Patient ED Disposition Is Patient to be Admitted: No - Disposition Disposition: Routine/Home Disposition Time: 18:53 Condition: STABLE Prescriptions: Cyclobenzaprine [Cyclobenzaprine HCl] 10 mg PO TID #20 tab Ibuprofen [Motrin] 600 mg PO Q6 #20 tab oxyCODONE/Acetaminophen [Percocet 5/325 mg Tab] 1 ea PO Q6 PRN #5 tab PRN Reason: Pain, Severe (8-10) Instructions: Upper Back Pain (DC) Forms: [employer] ([place]ese)
[2018-03-25 19:15] LABS: SQUAMOUS EPITHIAL < 1 /hpf (0-5); URINE BILIRUBIN NEGATIVE (NEGATIVE); URINE BLOOD NEGATIVE (NEGATIVE); URINE CALCIUM OXALATE CRYSTALS OCC /hpf (<OCC); URINE CLARITY SLIGHTY-CLOUDY (Clear); URINE COLOR YELLOW (YELLOW); URINE GLUCOSE (UA) NEG (Normal); URINE LEUKOCYTE ESTERASE NEG Leu/uL (Negative); URINE PROTEIN NEGATIVE (NEGATIVE); URINE UROBILINOGEN 0.2-1.0 mg/dL (0.2-1.0)
--- NOTE | 2018-03-26 09:17 | RAD ---
Date of service: 03/25/2018 HISTORY: pain COMPARISON: No prior. FINDINGS: BONES: Alignment maintained. No fracture. DISC SPACES: Normal. SOFT TISSUES: Normal. OTHER FINDINGS: None. IMPRESSION: Normal radiographs of the thoracic spine.
--- NOTE | 2018-03-26 09:17 | RAD ---
Date of service: 03/25/2018 PROCEDURE: Radiographs of the Chest and Left Ribs. HISTORY: pain COMPARISON: Chest radiographs 03/09/2018. TECHNIQUE: Frontal radiograph of the chest and multiple oblique radiographs of the left ribs were obtained. FINDINGS: LEFT RIBS: No fracture or focal lesion visualized. LUNGS: Clear. PLEURA: No pneumothorax or pleural fluid. CARDIOVASCULAR: Normal sized heart. No pulmonary vascular congestion. OTHER FINDINGS: None. IMPRESSION: Unremarkable radiographs of the chest and left ribs. No left rib fracture.
== END 2018-03-25 19:34 | disposition home or self-care (01) ==
LOC: H.ER 14:23
DX: S29.012A Strain of muscle and tendon of back wall of thorax, initial encounter (principal); X58.XXXA Exposure to other specified factors, initial encounter; Y92.9 Unspecified place or not applicable; I10 Essential (primary) hypertension
CPT/HCPCS: 71101; 72070; 81003; 81025; 96372; 99281; J2270

== ENCOUNTER 2018-04-14 13:41 | Emergency (ER) | payer SELFPAY ==
[2018-04-14 13:42] VITALS: BMI 36.2
[2018-04-14] MEDS ORDERED: Albuterol-Ipratrop 3 mg / 0.5 (3 ml) UD INH STA ×3 (14:00→16:21)
--- NOTE | 2018-04-14 14:08 | ED PDOC ---
HPI: CCC, URI, Sore Throat Time Seen by Provider: 04/14/18 13:54 Chief Complaint (Nursing): Flu-like Symptoms Chief Complaint (Provider): Flu-like Symptoms History Per: Patient History/Exam Limitations: no limitations Onset/Duration Of Symptoms: Days (x3) Current Symptoms Are (Timing): Still Present Additional Complaint(s): 48 year old female with pmHx of asthma, arrives to ED complaining of a cough for 3 days associated with tactile fever and shortness of breath. Patient states she has been using her Albuterol and Nebulizer with minimal relief, last use was at 0600 today. She denies any chest pain or further complaints. PMD: Dr. Charly Hendrickson Past Medical History Reviewed: Historical Data, Nursing Documentation, Vital Signs Vital Signs: Last Vital Signs Temp 98.8 F 04/14/18 17:02 Pulse 78 04/14/18 17:02 Resp 16 04/14/18 17:02 BP 147/80 04/14/18 17:02 Pulse Ox 100 04/14/18 17:02 - Medical History PMH: Anxiety, Arthritis, Asthma, Back Problems, Bipolar Disorder, Bronchitis, Depression, Fibromyalgia, HTN, Migraine, Pancreatitis, Post Traumatic Stress Disorder, Rheumatoid Arthritis, Seizures Denies: HIV, Pneumothorax, Chronic Kidney Disease, Sexually Transmitted Disease - Surgical History Surgical History: Appendectomy, Cholecystectomy, Tonsillectomy, (ALso Hysterectomy) - Family History Family History: States: Hypertension - Immunization History Hx Tetanus Toxoid Vaccination: No Hx Influenza Vaccination: No Hx Pneumococcal Vaccination: No - Home Medications Home Medications: Ambulatory Orders Medication Instructions Recorded Divalproex [Depakote DR] 500 mg PO Q12 03/09/18 Lisinopril [Zestril] 5 mg PO DAILY 03/09/18 Methocarbamol [Robaxin] 500 mg PO Q8 03/09/18 Metoprolol Tartrate [Lopressor] 25 mg PO Q12 03/09/18 Nortriptyline [Pamelor] 40 mg PO HS 03/09/18 Prazosin HCL [Minipress] 5 mg PO HS 03/09/18 QUEtiapine [SEROquel] 300 mg PO HS 03/09/18 SUMAtriptan succinate [Imitrex Tab] 100 mg PO DAILY PRN 03/09/18 clonazePAM [Klonopin] 0.5 mg PO Q12 03/09/18 metFORMIN [glucOPHAGE] 500 mg PO BID 03/09/18 Fluticasone/Salmeterol [Advair 1 each IH BID #1 blst.w.dev 03/11/18 250-50 Diskus] Montelukast [Singulair] 10 mg PO DAILY #15 tab 03/11/18 oxyCODONE/Acetaminophen [Percocet 1 tab PO Q6 #20 tab 03/11/18 5/325 mg Tab] Cyclobenzaprine [Cyclobenzaprine 10 mg PO TID #20 tab 03/25/18 HCl] Ibuprofen [Motrin] 600 mg PO Q6 #20 tab 03/25/18 oxyCODONE/Acetaminophen [Percocet 1 ea PO Q6 PRN #5 tab 03/25/18 5/325 mg Tab] Promethazine HCl/Codeine 10 ml PO Q8H PRN #150 ml 04/14/18 [Prometh-Codein 6.25-10 mg/5 ml] predniSONE [predniSONE Tab] 20 mg PO DAILY #12 tab 04/14/18 - Allergies Allergies/Adverse Reactions: Allergies Allergy/AdvReac Type Severity Reaction Status Date / Time No Known Allergies Allergy Verified 09/13/17 15:59 Review of Systems ROS Statement: Except As Marked, All Systems Reviewed And Found Negative Constitutional: Positive for: Fever (tactile) Cardiovascular: Negative for: Chest Pain Respiratory: Positive for: Cough, Shortness of Breath Physical Exam - Reviewed Nursing Documentation Reviewed: Yes Vital Signs Reviewed: Yes - Physical Exam Appears: Positive for: No Acute Distress ENT: Positive for: Normal ENT Inspection. Negative for: Pharyngeal Erythema Neck: Positive for: Normal, Supple Cardiovascular/Chest: Positive for: Regular Rate, Rhythm, Chest Non Tender. Negative for: Murmur Respiratory: Positive for: Wheezing (expiratory bilaterally). Negative for: Decreased Breath Sounds, Respiratory Distress Neurologic/Psych: Positive for: Alert (x3), Oriented - Laboratory Results Result Diagrams: 04/14/18 15:25 04/14/18 15:25 - ECG O2 Sat by Pulse Oximetry: 99 (RA) Pulse Ox Interpretation: Normal Medical Decision Making Medical Decision Making: Initial Impression: Cough Initial Plan: * Labs * CXR * Duoneb 3ml INH * Influenza AB Time: 1450 --CXR FINDINGS: LINES AND TUBES: None. LUNG AND PLEURA: The lungs are well inflated and clear. No pleural effusion or pneumothorax. HEART AND MEDIASTINUM: The heart is not enlarged. The hilar and mediastinal contours are within normal limits. SKELETAL STRUCTURES: The bony structures are within normal limits for the patient's age. VISUALIZED UPPER ABDOMEN: Normal. OTHER FINDINGS: None. IMPRESSION: No active pulmonary disease. Time: 1540 --Negative for influenza. Pt remains afebrile in ER with 100% oxygen saturation. Lungs clear. CXR normal. Scribe Attestation: Documented by Cinthya Arana, acting as a scribe for Nini Bergman PA-C. Provider Scribe Attestation: All medical record entries made by the Scribe were at my direction and personally dictated by me. I have reviewed the chart and agree that the record accurately reflects my personal performance of the history, physical exam, medical decision making, and the department course for this patient. I have also personally directed, reviewed, and agree with the discharge instructions and disposition. Disposition - Clinical Impression Clinical Impression: Asthma, Back pain, chronic - Patient ED Disposition Is Patient to be Admitted: No Counseled Patient/Family Regarding: Diagnosis, Need For Followup, Rx Given - Disposition Referrals: [facility] [Outside] [facility] [Outside] Disposition: Routine/Home Disposition Time: 17:50 Condition: GOOD Prescriptions: predniSONE [predniSONE Tab] 20 mg PO DAILY #12 tab Promethazine HCl/Codeine [Prometh-Codein 6.25-10 mg/5 ml] 10 ml PO Q8H PRN #150 ml PRN Reason: Cough Instructions: Asthma in Adults Forms: [employer] (Monegasque) Print Language: FRENCH
[2018-04-14] MEDS ORDERED: Albuterol-Ipratrop 3 mg / 0.5 (3 ml) UD ONE ×2 (14:13→16:57)
--- NOTE | 2018-04-14 14:51 | RAD ---
HISTORY: COMPARISON: 03/25/2018. TECHNIQUE: Chest PA and lateral FINDINGS: LINES AND TUBES: None. LUNG AND PLEURA: The lungs are well inflated and clear. No pleural effusion or pneumothorax. HEART AND MEDIASTINUM: The heart is not enlarged. The hilar and mediastinal contours are within normal limits. SKELETAL STRUCTURES: The bony structures are within normal limits for the patient's age. VISUALIZED UPPER ABDOMEN: Normal. OTHER FINDINGS: None. IMPRESSION: No active pulmonary disease.
[2018-04-14 15:31] LABS: BASO # 0.1 K/uL (0.0-0.2); BASO % 0.8 % (0.0-2.0); EOS # 0.2 K/uL (0.0-0.7); EOS % 1.8 % (0.0-4.0); HEMOGLOBIN 13.3 g/dL (12.0-16.0); LYMPH # 2.7 K/uL (1.0-4.3); LYMPH % 30.3 % (20.0-40.0); MEAN CELL VOLUME 88.4 fl (81.0-99.0); MEAN CORPUSCULAR HEMOGLOBIN 29.8 pg (27.0-31.0); MEAN CORPUSCULAR HGB CONC 33.6 g/dL (33.0-37.0); MEAN PLATELET VOLUME 8.7 fl (7.2-11.7); MONO # 0.8 K/uL (0.0-0.8); MONO % 8.8 % (0.0-10.0); NEUT # 5.3 K/uL (1.8-7.0); NEUT % 58.3 % (50.0-75.0); NRBC % 0.1 % (0.0-0.0); RBC 4.47 Mil/uL (3.80-5.20); RED CELL DISTRIBUTION WIDTH 14.8 % (11.5-14.5)
[2018-04-14 15:52] LABS: ALB/GLOB RATIO 1.5 (1.0-2.1); ALBUMIN 4.6 g/dL (3.5-5.0); ALT/SGPT 28 U/L (9-52); AST/SGOT 25 U/L (14-36); BLOOD UREA NITROGEN 19 mg/dl (7-17); CALCIUM 9.2 mg/dL (8.4-10.2); GFR NON-AFRICAN AMERICAN > 60
[2018-04-14] MEDS ORDERED: Promethazine/Cod 6.25mg-10mg/5ml Syr UD PO STA (15:53)
[2018-04-14] MEDS ORDERED: Promethazine/Cod 6.25mg-10mg/5ml Syr UD ONE (16:00)
[2018-04-14 17:02] VITALS: TEMP 98.8
[2018-04-14 17:52] VITALS: O2SAT 99
[2018-04-14 18:00] VITALS: BP 134/78; PULSE 70; RESP 18
== END 2018-04-14 18:00 | disposition home or self-care (01) ==
LOC: H.ER 13:41
DX: J45.909 Unspecified asthma, uncomplicated (principal); M54.9 Dorsalgia, unspecified; G89.29 Other chronic pain; I10 Essential (primary) hypertension; M79.7 Fibromyalgia; M06.9 Rheumatoid arthritis, unspecified; Z79.84 Long term (current) use of oral hypoglycemic drugs; K85.90 Acute pancreatitis without necrosis or infection, unspecified
CPT/HCPCS: 71046; 80053; 85025; 87804; 94640; 96374; 96375; 99283; J1885; J2930

== ENCOUNTER 2018-06-05 20:20 | Emergency (ER) | payer SELFPAY ==
[2018-06-05 20:20] VITALS: BMI 34.9
[2018-06-05] MEDS ORDERED: Sodium Chloride 0.9% 1,000 ML IV STA (21:16)
[2018-06-05] MEDS ORDERED: cefTRIAXone (Rocephin) 1 gm Inj ONE (21:22)
[2018-06-05 21:41] LABS: SQUAMOUS EPITHIAL 1 /hpf (0-5); URINE BACTERIA RARE (<OCC); URINE BILIRUBIN NEGATIVE (NEGATIVE); URINE BLOOD SMALL (NEGATIVE); URINE CLARITY CLOUDY (Clear); URINE COLOR YELLOW (YELLOW); URINE GLUCOSE (UA) NEG (Normal); URINE LEUKOCYTE ESTERASE LARGE Leu/uL (Negative); URINE PROTEIN 100 mg/dL (NEGATIVE); URINE UROBILINOGEN 0.2-1.0 mg/dL (0.2-1.0)
[2018-06-05 21:48] LABS: BASO % 0.4 % (0.0-2.0); EOS # 0.1 K/uL (0.0-0.7); EOS % 0.8 % (0.0-4.0); LYMPH % 17.9 % (20.0-40.0); MEAN CELL VOLUME 88.5 fl (81.0-99.0); MEAN CORPUSCULAR HEMOGLOBIN 28.9 pg (27.0-31.0); MEAN CORPUSCULAR HGB CONC 32.7 g/dL (33.0-37.0); MONO # 0.6 K/uL (0.0-0.8); MONO % 5.5 % (0.0-10.0); NEUT # 8.3 K/uL (1.8-7.0); NEUT % 75.4 % (50.0-75.0); RBC 4.5 Mil/uL (3.80-5.20); RED CELL DISTRIBUTION WIDTH 14.7 % (11.5-14.5)
[2018-06-05 21:51] LABS: PHENCYCLIDINE, UR NEGATIVE (NEGATIVE)
[2018-06-05 21:57] LABS: BARBITURATES, UR NEGATIVE (NEGATIVE); BENZODIAZEPINES, UR NEGATIVE (NEGATIVE); OPIATES, UR POSITIVE (NEGATIVE)
[2018-06-05 22:00] LABS: ALB/GLOB RATIO 1.2 (1.0-2.1); ALBUMIN 4.4 g/dL (3.5-5.0); ALT/SGPT 30 U/L (9-52); AST/SGOT 30 U/L (14-36); BLOOD UREA NITROGEN 8 mg/dl (7-17); CALCIUM 9.3 mg/dL (8.4-10.2); GFR NON-AFRICAN AMERICAN > 60
--- NOTE | 2018-06-06 00:02 | ED PDOC ---
HPI: Female Pain Time Seen by Provider: 06/05/18 20:37 Chief Complaint (Nursing): Female Genitourinary Chief Complaint (Provider): Female Genitourinary History Per: Patient History/Exam Limitations: no limitations Onset/Duration Of Symptoms: Days (x3) Current Symptoms Are (Timing): Still Present Additional Complaint(s): 48 y/o female with a Past medical history of Anxiety, Arthritis, Asthma, Back Problems, Bipolar Disorder, Bronchitis, Depression, Fibromyalgia, Hypertension, Migraine, Pancreatitis, PTSD, Rheumatoid Arthritis and Seizures presents to the ED for evaluation of UTI symptoms. Patient reports of dysuria and frequency for the past three days. Patient additionally reports of developing flank pain, nausea, subjected fevers and chills. Patient denies hematuria, vomiting and medications for pain relief. Patient additionally complains of right ankle pain and appears wearing a splint from recent ankle sprain. PMD: None Provided Past Medical History Reviewed: Historical Data, Nursing Documentation, Vital Signs Vital Signs: Last Vital Signs Temp 98.3 F 06/05/18 20:34 Pulse 116 H 06/05/18 20:34 Resp 20 06/05/18 20:34 BP 139/90 06/05/18 20:34 Pulse Ox 98 06/05/18 20:34 - Medical History PMH: Anxiety, Arthritis, Asthma, Back Problems, Bipolar Disorder, Bronchitis, Depression, Fibromyalgia, HTN, Migraine, Pancreatitis, Post Traumatic Stress Disorder, Rheumatoid Arthritis, Seizures Denies: HIV, Pneumothorax, Chronic Kidney Disease, Sexually Transmitted Disease - Surgical History Surgical History: Appendectomy, Cholecystectomy, Tonsillectomy, (ALso Hysterectomy) - Family History Family History: States: Hypertension - Immunization History Hx Tetanus Toxoid Vaccination: No Hx Influenza Vaccination: No Hx Pneumococcal Vaccination: No - Home Medications Home Medications: Ambulatory Orders Medication Instructions Recorded RX: Divalproex [Depakote DR] 500 mg PO Q12 03/09/18 RX: Lisinopril [Zestril] 5 mg PO DAILY 03/09/18 RX: Methocarbamol [Robaxin] 500 mg PO Q8 03/09/18 RX: Metoprolol Tartrate [Lopressor] 25 mg PO Q12 03/09/18 RX: Nortriptyline [Pamelor] 40 mg PO HS 03/09/18 RX: Prazosin HCL [Minipress] 5 mg PO HS 03/09/18 RX: QUEtiapine [SEROquel] 300 mg PO HS 03/09/18 RX: SUMAtriptan succinate [Imitrex 100 mg PO DAILY PRN 03/09/18 Tab] RX: metFORMIN [glucOPHAGE] 500 mg PO BID 03/09/18 Fluticasone/Salmeterol [Advair 1 each IH BID #1 blst.w.dev 03/11/18 250-50 Diskus] RX: Montelukast [Singulair] 10 mg PO DAILY #15 tab 03/11/18 Cyclobenzaprine [Cyclobenzaprine 10 mg PO TID #20 tab 03/25/18 HCl] Ibuprofen [Motrin] 600 mg PO Q6 #20 tab 03/25/18 Fluticasone/Vilanterol [Breo 05/02/18 Ellipta 100-25 Mcg INH] Hydrocodone Bit/Homatrop Me-Br 1 tsp PO Q6H #100 ml 05/02/18 [Hydrocodone-Homatropine Syrup] Prednisone [Deltasone] 3 tab PO DAILY #12 tablet 05/02/18 Nitrofurantoin Macrocrystals 1 cap PO BID #14 cap 06/06/18 [Macrobid] RX: Ibuprofen [Motrin Tab] 600 mg PO Q8 PRN #60 tab 06/06/18 RX: traMADol [Ultram] 50 mg PO TID PRN #15 tab 06/06/18 - Allergies Allergies/Adverse Reactions: Allergies Allergy/AdvReac Type Severity Reaction Status Date / Time No Known Allergies Allergy Verified 06/05/18 20:34 Review of Systems ROS Statement: Except As Marked, All Systems Reviewed And Found Negative (as per HPI) Constitutional: Positive for: Fever, Chills Gastrointestinal: Positive for: Nausea Genitourinary Female: Positive for: Dysuria, Frequency Musculoskeletal: Positive for: Back Pain (Flank pain), Foot Pain (right ankle pain) Physical Exam - Reviewed Nursing Documentation Reviewed: Yes Vital Signs Reviewed: Yes - Physical Exam Appears: Positive for: In Acute Distress (mild, painful) Head Exam: Positive for: ATRAUMATIC, NORMOCEPHALIC Skin: Positive for: Warm, Dry Eye Exam: Positive for: EOMI, PERRL ENT: Negative for: Pharyngeal Erythema, Tonsillar Exudate Neck: Positive for: Painless ROM, Supple Cardiovascular/Chest: Positive for: Regular Rate, Rhythm. Negative for: Murmur Respiratory: Positive for: Normal Breath Sounds. Negative for: Respiratory Distress Gastrointestinal/Abdominal: Positive for: Soft, Tenderness (Suprapubic and RLQ Tenderness). Negative for: Mass, Guarding Back: Positive for: L CVA Tenderness Extremity: Positive for: Normal ROM. Negative for: Deformity Lymphatic: Negative for: Adenopathy Neurologic/Psych: Positive for: Alert. Negative for: Motor/Sensory Deficits - Laboratory Results Result Diagrams: 06/05/18 21:43 06/05/18 21:43 - ECG O2 Sat by Pulse Oximetry: 98 (RA) Pulse Ox Interpretation: Normal Medical Decision Making Medical Decision Making: Time: 2142 Impression: Flank pain with UTI symptoms Differentials include but not limited to UTI, cystitis, pyelonephritis, renal colic and enteritis Plan: -- CT Abd & Pelvis w/o PO or IV Contrast -- CMP -- Urine Drug Screen -- Lact Acid, Plasma -- ED Urine -- ED Urine Dipstick -- CBC with Differentials -- Chlamydia GC/RNA -- Sodium Chloride IV 1000 mls/hr -- Rocephin 1 gm Sodum Chloride IV 0.9% 100 ml -- Toradol 30 mg IV -- Tylenol 975 mg PO -- Ultram 50 mg PO -- ZofranInj 4 mg IVP -- Blood Culture -- Urine Culture -- IV Insertion -- Urinalysis Time: 2231 CT RESULTS Findings: Chest: The visualized lung bases are clear. Abdomen: The kidneys are normal in size bilaterally. A hyperdense lesion is see n in the posterior aspect of the left kidney. There is a 1 mm punctate nonobstructing left renal stone. There is no evidence of hydronephrosis. There is diffuse low attenuation of the hepatic parenchyma. No focal hepatic masses are seen. The spleen, pancreas, gallbladder and adrenal glands are unremarkable. The aorta demonstrates normal caliber and contour. There is no abdominal lymphadenopathy or ascites. Pelvis: The bowel is unremarkable, with no obstructive or inflammatory changes. The urinary bladder is within normal limits. There is no pelvic lymphadenopathy or ascites. The other pelvic structures appear unremarkable. Bones: There are no suspicious osseous abnormalities seen. Impression: 1. No evidence of hydronephrosis. 1 mm nonobstructing stone in the left kidney. 2. Ill-defined hyperdense lesion in the lateral left kidney. This is a nonspecific finding. If there is further clinical concern, ultrasound should be considered. 3. Diffuse fatty infiltration of the liver. 4. No obstructive or inflammatory bowel changes. Electronically signed on Jun 05, 2018 10:32:00 PM EDT by: Chin Sanchez M.D., INDIRA Certified By [facility] [employer] [facility] Fellowship Trained MRI and CT Specialist DW pt findings and plan of care. Stable for dc with antibiotics and followup pmd. Scribe Attestation: Documented by Lalit Chang, acting as a scribe for Gifty Méndez MD. Provider Scribe Attestation: All medical record entries made by the Scribe were at my direction and personally dictated by me. I have reviewed the chart and agree that the record accurately reflects my personal performance of the history, physical exam, medical decision making, and the department course for this patient. I have also personally directed, reviewed, and agree with the discharge instructions and disposition. Disposition - Clinical Impression Clinical Impression: Cystitis - Disposition Referrals: Charly Hendrickson DO [Family Provider] - ([facility]) Disposition: Routine/Home Disposition Time: 22:35 Condition: IMPROVED Prescriptions: RX: Ibuprofen [Motrin Tab] 600 mg PO Q8 PRN #60 tab PRN Reason: Pain, Moderate (4-7) Nitrofurantoin Macrocrystals [Macrobid] 1 cap PO BID #14 cap RX: traMADol [Ultram] 50 mg PO TID PRN #15 tab PRN Reason: severe pain only Instructions: Urinary Tract Infection, Adult (DC) Forms: [employer] (Russian) Print Language: HEBREW
[2018-06-06 00:26] VITALS: BP 128/79; PULSE 74; RESP 15; TEMP 98.1
--- NOTE | 2018-06-06 10:03 | CT ---
Date of service: 06/05/2018 PROCEDURE: CT Abdomen and Pelvis with Oral contrast. HISTORY: FLANK pain and dysuria and hematuria COMPARISON: Comparison made with prior CT scan abdomen pelvis 01/28/2018 TECHNIQUE: Contiguous axial images of the abdomen and pelvis. Oral contrast was administered. No IV contrast given. Coronal and Sagittal reformats generated. Radiation dose: Total exam DLP = 823.39 mGy-cm. This CT exam was performed using one or more of the following dose reduction techniques: Automated exposure control, adjustment of the mA and/or kV according to patient size, and/or use of iterative reconstruction technique. FINDINGS: LOWER THORAX: LIVER: Liver is borderline/mildly enlarged measuring nearly 19 cm in CC dimension.. No obvious hepatic mass or collection. Mild fatty hepatic infiltration. . GALLBLADDER AND BILE DUCTS: Gallbladder is appears incompletely distended. No evidence of intraluminal gallbladder calculi. PANCREAS: Unremarkable. No mass. No ductal dilatation. SPLEEN: Unremarkable. No splenomegaly. ADRENALS: There are no adrenal lesions. KIDNEYS AND URETERS: There is slight dilatation of the right ureter with minimal surrounding infiltration changes however no evidence of obstructing ureteral calculus. Rule out ascending UTI.. There is a punctate nonobstructing calcifications seen pole collecting system left kidney in addition, there also appears to be a small parapelvic cyst midpole left kidney measuring approximately 17 mm. Small approximately 6 mm hyperdense lesion arising from the posterolateral cortex mid to lower pole left kidney with Hounsfield units in the low 30s. This could represent small hyperdense cyst. Follow-up ultrasound could be performed to confirm and exclude solid lesion. No evidence of hydronephrosis. BLADDER: Urinary bladder incompletely distended which may in part account for thick-walled appearance however correlation with urinalysis to exclude cystitis. REPRODUCTIVE: Hysterectomy APPENDIX: Appendix not seen consistent with this patient's history of prior appendectomy BOWEL: Evaluation of the bowel is somewhat limited due to the lack of oral contrast material. The stomach is distended with food debris liquid and air. Visualized loops of small bowel exhibit normal contour and caliber. No evidence of acute mechanical small bowel obstruction. Stool and air seen throughout the large bowel.. No definitive evidence of mural wall thickening PERITONEUM: Unremarkable. No fluid collection. No free air. Small fat containing umbilical hernia. LYMPH NODES: There are several small to medium-sized nonspecific retroperitoneal lymph nodes. VASCULATURE: No aortic atherosclerotic calcification and mural plaque. No aortic aneurysm. BONES: Mild multilevel degenerative spondylosis of the lower thoracic and lumbar spine. OTHER FINDINGS: None. IMPRESSION: The bladder is incompletely distended which in part accounts for thick-walled appearance however correlation with urinalysis recommended to exclude cystitis. There is slight dilatation of the right ureter with minimal surrounding infiltration changes however no evidence of obstructing ureteral calculus. Rule out ascending UTI... Punctate nonobstructing calcification upper pole left kidney. 17 mm parapelvic cyst anterior aspect midpole left kidney. Tiny approximately 6 mm hyperdense partially exophytic soft tissue density posterolateral cortex mid to lower pole left kidney may represent hyperdense cysts however follow-up ultrasound could be performed to confirm and exclude solid lesion. Multiple small to medium sized retroperitoneal lymph nodes. Borderline/mild hepatomegaly with mild fatty hepatic infiltration. Appendectomy. Hysterectomy.
[2018-06-07 18:00] VITALS: O2SAT 98
== END 2018-06-06 00:31 | disposition home or self-care (01) ==
LOC: H.ER 20:20
DX: N30.91 Cystitis, unspecified with hematuria (principal); N28.1 Cyst of kidney, acquired; I88.0 Nonspecific mesenteric lymphadenitis
CPT/HCPCS: 74176; 80053; 80324; 80345; 80346; 80349; 80353; 80358; 80361; 81003; 81025; 83605; 83992; 85025; 87040; 87086; 87181; 87491; 87591; 96374; 99284; J0696; J1885; J2405; J7030

== ENCOUNTER 2018-11-17 02:10 | Emergency (ER) | payer MEDICAID, OTHER ==
[2018-11-17 02:11] VITALS: BMI 34.9
[2018-11-17 02:22] VITALS: BP 126/82; PULSE 86; RESP 18; TEMP 98.5; O2SAT 96
[2018-11-17] MEDS ORDERED: Sodium Chloride 0.9% 1,000 ML IV STA (03:57)
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
[2018-11-17 04:27] LABS: BASO # 0.1 K/uL (0.0-0.2); BASO % 0.6 % (0.0-2.0); EOS # 0.2 K/uL (0.0-0.7); EOS % 1.8 % (0.0-4.0); HEMOGLOBIN 12.6 g/dL (12.0-16.0); LYMPH # 2.7 K/uL (1.0-4.3); MEAN CELL VOLUME 88.5 fl (81.0-99.0); MEAN CORPUSCULAR HEMOGLOBIN 29.1 pg (27.0-31.0); MEAN CORPUSCULAR HGB CONC 32.9 g/dL (33.0-37.0); MEAN PLATELET VOLUME 8.8 fl (7.2-11.7); MONO # 0.6 K/uL (0.0-0.8); MONO % 7.1 % (0.0-10.0); NEUT # 5.4 K/uL (1.8-7.0); NEUT % 60.5 % (50.0-75.0); NRBC % 0.1 % (0.0-0.0); RBC 4.32 Mil/uL (3.80-5.20); RED CELL DISTRIBUTION WIDTH 15.5 % (11.5-14.5); WHITE BLOOD COUNT 8.9 K/uL (4.8-10.8)
[2018-11-17 04:31] LABS: ALB/GLOB RATIO 1.3 (1.0-2.1); ALBUMIN 4.1 g/dL (3.5-5.0); ALT/SGPT 29 U/L (9-52); AST/SGOT 31 U/L (14-36); BLOOD UREA NITROGEN 17 mg/dl (7-17); CALCIUM 9.7 mg/dL (8.4-10.2); GFR NON-AFRICAN AMERICAN > 60
== END 2018-11-17 05:43 | disposition home or self-care (01) ==
LOC: H.ER 02:10
DX: G43.909 Migraine, unspecified, not intractable, without status migrainosus (principal); Z86.59 Personal history of other mental and behavioral disorders; F43.10 Post-traumatic stress disorder, unspecified; I10 Essential (primary) hypertension; J45.909 Unspecified asthma, uncomplicated; M06.9 Rheumatoid arthritis, unspecified
CPT/HCPCS: 80053; 81025; 85025; 96361; 96374; 96375; 99283; J1885; J2765; J7030